=== PATIENT | male | born 1975 | race Caucasian/White ===

== ENCOUNTER 2018-02-02 13:52 | Inpatient (IN) | payer MEDICAID, SELFPAY ==
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
[2018-02-02 14:36] VITALS: BMI 26.2
[2018-02-02 14:37] VITALS: BMI 26.2
[2018-02-02 14:45] VITALS: BP 141/72; PULSE 92; RESP 16; TEMP 36.9; O2SAT 94
[2018-02-02 14:52] LABS: Absolute Neutrophil Count 2.6 X10^3/uL (2.0-7.7); Basophil# 0.03 X10^3/uL; Basophil% 0.6 % (0-1); Eosinophil# 0.07 X10^3/uL; Eosinophils% 1.5 % (0-5); Hematocrit 39.7 % (40-54); Hemoglobin 13.9 g/dl (13.0-16.5); Lymphocyte % 28.1 % (19-41); Mean Corpuscular Hgb 30.4 pg (27.0-32.0); Mean Corpuscular Volume 86.9 fL (80-94); Mean Platelet Vol. 9.2 fl (6.2-12.0); Monocyte# 0.64 X10^3/uL; Monocyte% 13.8 % (0-10); Neutrophil # 2.57 X10^3/uL (2.7-7.7); Neutrophil % 55.6 % (47-70); Platelet Count 129 K/mm3 (150-450); RBC Distribution Width CV 13.9 % (11.6-14.6); RBC Distribution Width SD 43.3 fl (35.1-43.9); Red Blood Count 4.57 M/mm3 (4.6-6.2); White Blood Count 4.6 K/mm3 (4.4-11.0)
[2018-02-02] MEDS: chlordiazePOXIDE 25 MG Capsule PO ×2 (14:52→21:21)
[2018-02-02] MEDS: Ondansetron ODT 4 MG Tablet PO (14:53)
[2018-02-02 14:55] LABS: POSITIVE COUNT NO; POSITIVE DIFFERENTIAL NO; POSITIVE MORPHOLOGY NO
[2018-02-02 14:58] LABS: Prothrombin Time (Protime)PT. 12.9 SECONDS (11.7-14.9)
[2018-02-02 15:14] LABS: AST(SGOT) 159 U/L (15-37); Alanine Aminotransfer ALT/SGPT 126 U/L (16-61); Albumin, Serum 3.8 g/dL (3.2-5.0); Alkaline Phosphatase 122 U/L (45-117); Anion Gap 12 (5-15); BUN 7 mg/dL (7-18); BUN/Creat Ratio 8.1 RATIO (10-20); Calcium,Total 8.3 mg/dL (8.5-10.1); Chloride 102 mmol/L (98-107); Creatinine, Serum 0.87 mg/dL (0.70-1.30); EST Glomerular Filtration Rate 102 mL/min (>60); Est Glom Filt Rate - Afr Amer 124 mL/min (>60); Estimated Creatinine Clearance 117.81 ml/min; Globulin 3.8 g/dL (2.2-4.2); Glucose 104 mg/dL (74-106); Potassium 2.8 mmol/L (3.5-5.1); Protein, Total 7.6 g/dL (6.4-8.2); Sodium Level 140 mmol/L (136-145)
--- NOTE | 2018-02-02 16:22 | CHAPLAIN ---
Type of Pastoral Visit _x__ Initial Visit ___ Follow-up Visit ___ On-call Visit ___ General Patient Visit ___ Spiritual Assessment ___ Family Conference ___ Bereavement ___ Rapid Response ___ Code Blue ___ Other (describe below) Pastoral Care Referral From ___ Patient ___ Family ___ Nurse ___ Physician ___ Bleach Analyst ___ Pantograph Watcher _x__ Other (describe below) Sacrament/Intervention ___ Active listening ___ Anointing ___ Mormon ___ Bereavement ___ Communion ___ Dariana exploration ___ ___ Life review ___ Prayer ___ Reconciliation ___ Sacrament of Sick _x__ Supportive presence ___ Wedding ___ Other (describe below) Pastoral Comments [facility] staff introduced me to patient as he was being admitted; returned to room later to offer support and pt was trying to sleep; he would welcome a visit tomorrow
[2018-02-02 17:25] LABS: Magnesium 1.8 mg/dL (1.6-2.6)
[2018-02-02 18:09] VITALS: BP 147/85; PULSE 95; RESP 16; TEMP 37.1; O2SAT 99
[2018-02-02] MEDS: LORazepam 1 MG Tablet 2 MG PO (18:37)
[2018-02-02] MEDS: traZODone 50 MG Tablet PO (21:21)
[2018-02-02 22:00] VITALS: BP 140/65; PULSE 82; RESP 16; TEMP 37.2; O2SAT 100
[2018-02-03] MEDS: cloNIDine HCl 0.1 MG Tablet PO (02:26)
[2018-02-03] MEDS: chlordiazePOXIDE 25 MG Capsule PO ×4 (02:26→23:02)
[2018-02-03 03:52] VITALS: BP 149/84; PULSE 76; RESP 16; TEMP 36.9; O2SAT 98
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
[2018-02-03 09:27] VITALS: BP 136/88; PULSE 88; RESP 18; TEMP 37.2; O2SAT 100
[2018-02-03] MEDS: Folic Acid 1 MG Tablet PO (09:30)
[2018-02-03] MEDS: Pantoprazole Sodium 40 MG Tablet PO (09:31)
[2018-02-03] MEDS: QUEtiapine 25 MG Tablet 50 MG PO (09:31)
[2018-02-03] MEDS: Thiamine Hydrochloride 100 MG Tablet PO (09:31)
[2018-02-03] MEDS: busPIRone 5 MG Tablet PO (09:31)
[2018-02-03 09:38] VITALS: BP 136/88; PULSE 88; RESP 18; TEMP 37.2
--- NOTE | 2018-02-03 10:10 | CASEMGMT ---
RN CM Note: Per rounds, Dr. Mckeon recommending pt be evaluated by Behavioral Health. YOLIS Whiting updated and referral placed. Shalini DUGANN RN ACM
[2018-02-03 10:17] LABS: Cholesterol 272 mg/dL (200); High Density Lipoprotein 143 mg/dL; Triglycerides 94 mg/dL; Very Low Density Lipoprotein 19 mg/dL (5-40)
[2018-02-03 12:37] LABS: Amphetamine Urine VISTA NEGATIVE (<1000 ng/mL); Barbiturate Urine VISTA POSITIVE (< 200 ng/mL); Benzodiazepine Urine VISTA POSITIVE (< 200 ng/mL); Cocaine Urine VISTA NEGATIVE (< 300 ng/mL); Ecstacy Urine VISTA NEGATIVE (< 500 ng/mL); Methadone Urine VISTA NEGATIVE (< 300 ng/mL); PCP Urine VISTA NEGATIVE (< 25 ng/mL); THC Urine VISTA NEGATIVE (< 50 ng/mL); Vista UDS pH Range 6
--- NOTE | 2018-02-03 13:34 | CASEMGMT ---
Social Work Note SW received referral from RN LUIS DANIEL Newton who states that Dr. Mckeon placed a behavioral health referral in for pt. YOLIS informed pt of this and asked if he would be agreeable for this worker to place call for behavioral health. Pt states I will have to think about it. Pt denied additional needs at this time. SW informed Aman of this. SW received call from Keiry with [facility] stating that pt will be going to a inpatient detoxification facility called [facility] that will provide one on one counseling and IOP services to pt. Behavioral Health Referral is not needed as pt will be receiving services at inpatient detoxification. Plan: [facility] inpatient detoxification at discharge Johanne Curiel BAND LEADER, COTTON HEADER
[2018-02-03 14:00] VITALS: BP 134/88; PULSE 88; RESP 18; TEMP 37.6; O2SAT 96
[2018-02-03 20:53] VITALS: BP 135/91; PULSE 85; RESP 16; TEMP 36.7
[2018-02-03] MEDS: traZODone 50 MG Tablet PO (23:02)
[2018-02-04 02:00] VITALS: RESP 16
[2018-02-04 04:51] VITALS: BP 141/96; PULSE 86; RESP 16; TEMP 36.6
[2018-02-04] MEDS: cloNIDine HCl 0.1 MG Tablet PO ×3 (04:58→17:46)
[2018-02-04 07:27] LABS: Anion Gap 10 (5-15); BUN 15 mg/dL (7-18); BUN/Creat Ratio 15.1 RATIO (10-20); Calcium,Total 9.4 mg/dL (8.5-10.1); Chloride 100 mmol/L (98-107); Creatinine, Serum 0.99 mg/dL (0.70-1.30); EST Glomerular Filtration Rate 87 mL/min (>60); Est Glom Filt Rate - Afr Amer 106 mL/min (>60); Estimated Creatinine Clearance 102.47 ml/min; Glucose 99 mg/dL (74-106); Potassium 3.3 mmol/L (3.5-5.1); Sodium Level 138 mmol/L (136-145)
--- NOTE | 2018-02-04 08:36 | CASEMGMT ---
SW spoke w/physician, pt had agreed to speak w/Behavioral Health when speaking w/physician, and she would still like Behavioral Health to see pt. SW called Rusty in Behavioral Health, he will try to come over to see pt this afternoon. HARVEY Burroughs, OUTREACH CLINICIAN
[2018-02-04] MEDS: Folic Acid 1 MG Tablet PO (09:12)
[2018-02-04] MEDS: Thiamine Hydrochloride 100 MG Tablet PO (09:12)
[2018-02-04] MEDS: busPIRone 5 MG Tablet PO (09:12)
[2018-02-04] MEDS: Pantoprazole Sodium 40 MG Tablet PO (09:12)
[2018-02-04] MEDS: QUEtiapine 25 MG Tablet 50 MG PO (09:20)
[2018-02-04] MEDS: chlordiazePOXIDE 25 MG Capsule PO ×2 (09:20→17:35)
--- NOTE | 2018-02-04 09:34 | PCA ---
rn in with pt
[2018-02-04 10:00] VITALS: BP 132/89; PULSE 87; RESP 18; TEMP 36.4; O2SAT 99
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
[2018-02-04 11:41] LABS: HEPATITIS B SURFACE AG Negative (Negative); Hepatitis A AB, Total Negative (Negative); Hepatitis A IgM Antibody Negative (Negative); Hepatitis B Core AB IgM Negative (Negative); Hepatitis B Core Ab Total Negative (Negative); Hepatitis C Ab <0.1 s/co ratio (0.0-0.9)
[2018-02-04 14:00] VITALS: BP 108/65; PULSE 78; RESP 18; TEMP 36.5
--- NOTE | 2018-02-04 16:35 | BH.NOTE ---
BH: Inpatient Note - Notes Behavioral Health Inpatient Note: 02/04/18 16:35 Referral to [facility] due to anxiety symptoms exacerbating alcohol use. Met with pt in his room. Alert and oriented. Cooperative and pleasant. Denies any suicidal ideations, plan, or intent. Denies any HI or psychosis. Pt reports hx of several treatments for alcohol abuse which include detox, residential, outpatient counseling, and IOP programs. Most recent counseling was through [facility] in [facility]. We discussed at length how anxiety impacts his alcohol use. He admits to self-medication with any significant stressors or worry ultimately leading to blackouts. Despite extensive treatment is able to verbalize any coping skills to manage anxiety which often leads to relapse. Denies ever seeing a psychiatrist to address anxiety and depression. Utilized motivational interviewing techniques to elicit change behaviors. Reports motivation being 8 out of 10 to remain sober, however is pessimistic inpatient or residential treatment will be effective. Does not see benefit in AA. Primary motivation for sobriety is not losing my house and getting a job. Very adamant that he will not be placed anywhere which is longer than 60 days. Per chart pt has aftercare set up with [facility] inpatient facility, however when asked pt did not currently know what his aftercare would be. Encouraged follow-up with psychiatrist at discharge from substance abuse treatment.
[2018-02-04 18:00] VITALS: BP 130/88; PULSE 93; RESP 18; TEMP 36.7
[2018-02-04 22:00] VITALS: BP 122/78; PULSE 75; RESP 18; TEMP 36.8
[2018-02-05] MEDS: chlordiazePOXIDE 25 MG Capsule PO (04:11)
[2018-02-05 08:02] VITALS: BP 128/91; PULSE 68; RESP 18; TEMP 36.7
[2018-02-05] MEDS: Thiamine Hydrochloride 100 MG Tablet PO (08:08)
[2018-02-05] MEDS: Folic Acid 1 MG Tablet PO (08:08)
[2018-02-05 10:24] LABS: Hep B Surface Antibodies Non Reactive (.)
--- NOTE | 2018-02-05 11:41 | CASEMGMT ---
Addendum entered by Kassi Tellez 02/05/18 12:27: Ariela called back, said they do have openings at this time in the intensive outpt program at [facility]. SW explained will have pt call if he is interested in the program. As this SW was waiting to hear if pt would be doing the inpt program set up for him by [facility], SW noticed pt walking out w/family. SW spoke w/pt just before getting on the elevator, pt and family state he is not going to the inpt program set up by [facility]. SW gave pt information on the [facility] program--which shows they do have a location in [place] as well--explained they are taking pts, he would need to call. Pt asked if they take his insurance, SW explained to double check when he calls. SW also gave pt a list of psychiatrists that take his insurance, as well as information on a program in [place] called [facility] for dual diagnosis pts, that also takes his insurance. SW encouraged pt to call. Pt's father took the information provided by YOLIS. YOLIS let Keiry from [facility] know pt is not going to the inpt program, information was given to pt's father regarding psychiatrists and outpt programs. No further needs anticipated at this time. HARVEY Burroughs, LINUX SERVER ENGINEER Original Note: Rusty from Behavioral Health called this SW with information on an intensive outpt program for dual diagnosis patients at [facility], the number is [phone]. YOLIS called, message left for Ariela Dover in intake. SW awaiting a call back. HARVEY Burroughs, LINUX SERVER ENGINEER
--- NOTE | 2018-02-05 11:55 | DCINST_ITS ---
- Discharge Diagnoses Current Active Problems: Current Active and Chronic Problems Alcohol withdrawal (Acute) Anxiety (Chronic) You will use the following diet at home:: No restrictions Your food should be the consistency of: Regular Your liquids should be the consistency of: Regular/Thin Discharge Activity: - - no restrictions May resume sexual activity in: No Restrictions Call your doctor if you observe: Fever of 101 or Higher Instructions: Treating Obsessive-Compulsive Disorder (OCD), Understanding Obsessive-Compulsive Disorder (OCD) Additional Instructions: We do not have a psychiatrist at [facility]. I think the reason you have not been successful in any in-patient or out-patient alcohol rehab facilities is that you have an underlying mental health disorder. I suspect you have OCD or obsessive-compulsive disorder. There is no shame in having a mental health disorder, many people do. The shame is in not being appropriately treated because you are not in control of your life and there is little quality of life when you can not stop drinking, and this is sad for you and your family. In my opinion you need to be treated by a psychiatrist with appropriate medications to get your compulsions under control........you will have to be medicated. Buspar is not going to control compulsive behavior and Seroquel is a anti-psychotic that helps you sleep but does not control cumpulsive behavior. Trazodone is just to help you sleep. Please get yourself hooked up with a psychiatrist to manage the medications and a therapist to do regular counselling with.....sometimes you have to try a few before you find someone you really connect with. Hang in there and keep trying......remember the definition of insanity is doing the same thing over and over and getting the same results.....the psychiatrist and appropriate treatment for obsessive-compulsive disorder is the piece you have been missing. Allergies/Adverse Reactions: Allergies No Known Allergies Allergy (Verified 02/02/18 14:15) Medications to take at Discharge Pantoprazole Sodium [Protonix] 40 mg PO DAILY 02/02/18 Quetiapine Fumarate [Seroquel] 50 mg PO DAILY 02/02/18 traZODone [Desyrel] 50 mg PO QHS 02/02/18 Primary Care Physician: Zachary Mcclendon [Primary Care Provider] - Please follow up with your Primary Care Physician in: within 1 week Proposed Discharge Date: 02/05/18
--- NOTE | 2018-02-05 12:03 | PCM.DC.SUM ---
Discharge Date and Diagnosis Date of Admission: 02/02/18 Date of Discharge: 02/05/18 - Primary Discharge Diagnosis Active and Suspected Problems Alcohol withdrawal (Acute) Fatty infiltration of liver (Suspected) Abnormal LFTs (Acute) OCD (obsessive compulsive disorder) (Suspected) - Secondary Discharge Diagnosis Chronic Problems Alcoholism (Chronic) Anxiety (Chronic) Suspected OCD Hospital Course and Treatment Imaging Results: Laboratory Tests 02/02/18 02/02/18 02/02/18 12:05 14:37 14:37 WBC RBC Hgb Hct MCV MCH MCHC RDW RDW Differential Plt Count MPV Immature Gran % (Auto) Neut % (Auto) Lymph % (Auto) Mcclain % (Auto) Eos % (Auto) Baso % (Auto) Absolute Neuts (auto) Absolute Lymphs (auto) Total Counted PT 12.9 INR 1.0 Sodium Potassium Chloride Carbon Dioxide Anion Gap BUN Creatinine Estim Creat Clear Calc Est GFR (MDRD) Af Amer Est GFR (MDRD) Non-Af BUN/Creatinine Ratio Glucose Calcium Magnesium Total Bilirubin AST ALT Alkaline Phosphatase Total Protein Albumin Globulin Albumin/Globulin Ratio Triglycerides Cholesterol LDL Cholesterol VLDL Cholesterol HDL Cholesterol Urine Opiates Screen NEGATIVE Urine Methadone Screen NEGATIVE Ur Barbiturates Screen POSITIVE H Ur Phencyclidine Scrn NEGATIVE Ur Amphetamines Screen NEGATIVE U Methamphetamin-MDMA NEGATIVE U Benzodiazepines Scrn POSITIVE H Urine Cocaine Screen NEGATIVE U Cannabinoids Screen NEGATIVE Ur Drug Screen Comment Ethyl Alcohol 197.0 Hepatitis A IgM Ab Hepatitis A Ab Total Hep Bs Antigen Hep B Core Total Ab Hep B Core IgM Ab Hepatitis C Ab Confirm Hepatitis C Comment 02/02/18 02/02/18 02/02/18 14:37 14:37 14:37 WBC 4.6 RBC 4.57 L Hgb 13.9 Hct 39.7 L MCV 86.9 MCH 30.4 MCHC 35.0 RDW 13.9 RDW Differential 43.3 Plt Count 129 L MPV 9.2 Immature Gran % (Auto) 0.400 Neut % (Auto) 55.6 Lymph % (Auto) 28.1 Mcclain % (Auto) 13.8 H Eos % (Auto) 1.5 Baso % (Auto) 0.6 Absolute Neuts (auto) 2.6 Absolute Lymphs (auto) 1.30 Total Counted Not Reportable PT INR Sodium 140 Potassium 2.8 L Chloride 102 Carbon Dioxide 26.0 Anion Gap 12 BUN 7 Creatinine 0.87 Estim Creat Clear Calc 117.81 Est GFR (MDRD) Af Amer 124 Est GFR (MDRD) Non-Af 102 BUN/Creatinine Ratio 8.1 L Glucose 104 Calcium 8.3 L Magnesium 1.8 Total Bilirubin 0.80 AST 159 H ALT 126 H Alkaline Phosphatase 122 H Total Protein 7.6 Albumin 3.8 Globulin 3.8 Albumin/Globulin Ratio 1.0 Triglycerides Cholesterol LDL Cholesterol VLDL Cholesterol HDL Cholesterol Urine Opiates Screen Urine Methadone Screen Ur Barbiturates Screen Ur Phencyclidine Scrn Ur Amphetamines Screen U Methamphetamin-MDMA U Benzodiazepines Scrn Urine Cocaine Screen U Cannabinoids Screen Ur Drug Screen Comment Ethyl Alcohol Hepatitis A IgM Ab Hepatitis A Ab Total Hep Bs Antigen Hep B Core Total Ab Hep B Core IgM Ab Hepatitis C Ab Confirm Hepatitis C Comment 02/02/18 02/03/18 02/04/18 14:37 09:25 06:40 WBC RBC Hgb Hct MCV MCH MCHC RDW RDW Differential Plt Count MPV Immature Gran % (Auto) Neut % (Auto) Lymph % (Auto) Mcclain % (Auto) Eos % (Auto) Baso % (Auto) Absolute Neuts (auto) Absolute Lymphs (auto) Total Counted PT INR Sodium 138 Potassium 3.3 L Chloride 100 Carbon Dioxide 28.0 Anion Gap 10 BUN 15 Creatinine 0.99 Estim Creat Clear Calc 102.47 Est GFR (MDRD) Af Amer 106 Est GFR (MDRD) Non-Af 87 BUN/Creatinine Ratio 15.1 Glucose 99 Calcium 9.4 Magnesium Total Bilirubin AST ALT Alkaline Phosphatase Total Protein Albumin Globulin Albumin/Globulin Ratio Triglycerides 94 Cholesterol 272 H LDL Cholesterol 110 VLDL Cholesterol 19 HDL Cholesterol 143 Urine Opiates Screen Urine Methadone Screen Ur Barbiturates Screen Ur Phencyclidine Scrn Ur Amphetamines Screen U Methamphetamin-MDMA U Benzodiazepines Scrn Urine Cocaine Screen U Cannabinoids Screen Ur Drug Screen Comment Ethyl Alcohol Hepatitis A IgM Ab Negative Hepatitis A Ab Total Negative Hep Bs Antigen Negative Hep B Core Total Ab Negative Hep B Core IgM Ab Negative Hepatitis C Ab Confirm <0.1 Hepatitis C Comment Comment none Operations: None Procedures: None Summary of Care Provided: The patient is a 43-year-old male with a past medical history of anxiety (on BuSpar, trazodone and Seroquel) who presented to the [facility] office requesting inpatient admission for medical stabilization for alcohol withdrawal. He recently had a citation for operating a motor vehicle vehicle while intoxicated and attended a program. He was sober during that time and was not given anything for withdrawal. He started drinking again when the program completed. He had auditory hallucinations, visual hallucinations, tremulousness and diaphoresis at admission. He drinks approximately a liter of vodka daily. He stated his last drink was in the a.m. on 10/07/2018 at 9 AM. Vital signs at admission were temperature 98.5, pulse 92, blood pressure 141/72, respiratory rate 16 and he was 94-99% saturated on room air. CBC had a low platelet count at 129,000 but was otherwise unremarkable. Potassium was low at 2.8 and AST was 159 with ALT of 126 and alkaline phosphatase of 122. PT was 12.9. We have no baseline labs on this gentleman. His alcohol level at presentation to the hospital was 197 which is legally intoxicated. The [facility] protocol for alcohol withdrawal was initiated. He was started on a Librium taper. Thiamine and folic acid supplements were ordered. Potassium was replaced. He was seen by Rusty Aguillon from behavioral health while in the hospital and given resources to follow up with for dual diagnosis. 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 He was discharged on 02/05/18 and the plan was for him to attend and inpatient program at [facility]. His father and a cousin showed up to pick him up from the hospital. Discharge Activity: - - no restrictions May resume sexual activity in: No Restrictions Call your doctor if you observe: Fever of 101 or Higher Home Medications: Medications to take at Discharge Pantoprazole Sodium [Protonix] 40 mg PO DAILY 02/02/18 Quetiapine Fumarate [Seroquel] 50 mg PO DAILY 02/02/18 traZODone [Desyrel] 50 mg PO QHS 02/02/18 Primary Care Physician: Zachary Mcclendon [Primary Care Provider] - Please follow up with your Primary Care Physician in: within 1 week Patient Instructions: Treating Obsessive-Compulsive Disorder (OCD), Understanding Obsessive-Compulsive Disorder (OCD) Disposition: Home Minutes spent on discharge:: 30 Patient Condition:: Stable Medical Necessity - Tobacco Use Smoking Status: Never smoker Tobacco Use: Non-smoker Meaningful Use Info Meaningful Use Diagnoses (Choose all that apply): None applicable Code Visit Inpatient E&M: 47651 Disch Hosp
[2018-02-05 12:14] VITALS: BP 149/95; PULSE 91; RESP 18; TEMP 36.5; O2SAT 98
== END 2018-02-05 12:30 | disposition home or self-care (01) | DRG 435 ==
PROVIDERS: Family Provider Internal Medicine; PCP Internal Medicine; Visit Provider Internal Medicine
DX: F10.239 Alcohol dependence with withdrawal, unspecified (principal); F10.229 Alcohol dependence with intoxication, unspecified; F10.251 Alcohol dependence with alcohol-induced psychotic disorder with hallucinations; K70.0 Alcoholic fatty liver; Y90.6 Blood alcohol level of 120-199 mg/100 ml; F32.9 Major depressive disorder, single episode, unspecified; F41.9 Anxiety disorder, unspecified; F42.9 Obsessive-compulsive disorder, unspecified; E87.6 Hypokalemia; K21.9 Gastro-esophageal reflux disease without esophagitis; R94.5 Abnormal results of liver function studies; Z81.1 Family history of alcohol abuse and dependence
CPT/HCPCS: 36415; 80048; 80053; 80061; 80307; 80320; 83735; 85025; 85610; 86704; 86705; 86706; 86708; 86709; 86803; 87340; 99406; G0480

== ENCOUNTER 2018-09-16 17:21 | Inpatient (IN) | payer MEDICAID, SELFPAY ==
[2018-09-16 17:11] VITALS: BP 137/89; PULSE 88; RESP 16; TEMP 36.9; O2SAT 96
[2018-09-16 17:15] VITALS: BMI 25.5
[2018-09-16 17:21] VITALS: BMI 25.5
--- NOTE | 2018-09-16 17:23 | PCM.HP.STD ---
Problem List (1) Alcohol withdrawal Status: Acute (2) Alcoholism Status: Chronic (3) Anxiety Status: Chronic History of Present Illness Date of Admission: 09/16/18 Chief Complaint: alcohol withdrawal The patient is a 43 year old M with pmhx of PSVT s/p ablation, nicotine abuse, anxiety, who presents to the hospital requesting help with alcohol detox. He drinks 3/4 liter of vodka daily and has been drinking since he was 18. Last drink was about 5 hours ago. He last went through detox here in january. He currently complains of tremors, nausea, vomiting, sweating, and anxiety. He did take a valium today for anxiety but states he normally does not use them. He has no other recreational drug use. He smokes about 1/2 ppd and declines patch at this time. He has no hx of withdrawal seizures. [] Past Medical History Past Medical History (Chronic Problems): Chronic Problems Alcoholism (Chronic) Anxiety (Chronic) Allergies No Known Allergies Allergy (Verified 02/02/18 14:15) Home Medications: Ambulatory Orders Medication Instructions Recorded Omeprazole [Prilosec] 20 mg PO DAILY 09/16/18 Ondansetron HCl [Zofran] 4 mg PO Q8H PRN PRN 09/16/18 Psychiatric History: Anxiety Lives: Alone Smoking Status: Current every day smoker Tobacco Use: Cigarettes Alcohol: Heavy Drugs: None - *Family History Maternal History Items: Hypertension, - - chronic back pain Paternal History Items: Hypertension Sibling History Items: - - pulmonary hypertension in brother Review of Systems Constitutional: Reports: - - sweats,. Denies: Chills, Fever, Weight Change HEENT: Denies: Head Aches, Sinus Congestion, Sinus Drainage Cardiovascular: Denies: Chest Pain, Palpitations Respiratory: Denies: Cough, Shortness of breath at rest, Sputum production Gastrointestinal: Reports: Nausea, Vomiting. Denies: Abdominal Pain Genitourinary: Denies: Dysuria Musculoskeletal: Denies: Joint Pain, Joint Tenderness Skin: Denies: Rash, Wounds Neurological: Reports: Tremor. Denies: Focal weakness, Numbness, Tingling Psychiatric: Denies: Anxiety, Depression, Homicidal Ideations, Suicidal Ideations Hematologic/ Lymphatic: Denies: Easy Bruising, Easy Bleeding VTE Information - Inpt Only VTE Present on Admission: No VTE Mechan Device Prophylaxis: None VTE Pharm Prophylaxis ordered?: No Reason prophylaxis not ordered:: Procedure Not Indicated - Physical Exam General: Alert, Oriented x3, Cooperative HEENT: Atraumatic, PERRLA, EOMI, Normocephalic Neck: Supple, No JVD, Negative Carotid Bruits Lungs: Clear to auscultation, Normal air movement Cardiovascular: Regular rate, No murmurs Abdomen: Bowel Sounds Present, Soft, Non Tender Extremities: No edema, Capillary Refill Less than 3 Seconds Skin: No rashes, No breakdown Musculoskeletal: No Tenderness to Palpation of Joints or Extremities Neurological: Cranial nerves II-XII grossly intact Psych/Mental Status: Anxious Vital Signs Temp Pulse Resp BP Pulse Ox 98.4 F 88 16 137/89 H 96 09/16/18 17:11 09/16/18 17:11 09/16/18 17:11 09/16/18 17:11 09/16/18 17:11 Oxygen Delivery Method Room Air Weight: 183 lb Body Mass Index (BMI) 25.5 Assessment/Plan All Active Problems Abnormal LFTs (Acute) Alcohol withdrawal (Acute) 1. Alcoholism with acute withdrawal - current symptoms nausea, vomiting, tremor, sweats. Last use 5 hours ago. Drinks 3/4 liter vodka daily. No hx withdrawal seizures. Last detox January 2018. Initiate withdrawal protocol with librium, ativan prn. Continue home ppi. 2. Nicotine abuse - 1/2 ppd. declines patch 3. Hx PSVT - in remission s/p ablation 4. Anxiety - took a valium at home today, not on maintenance medication. DVT ppx: early ambulation Medical stabilization day 1 of 4. This patient was seen by Usama Zavala PA-C under the supervision of Doctor Cheatham.
[2018-09-16] MEDS: LORazepam 1 MG Tablet PO ×2 (18:13→21:55)
[2018-09-16] MEDS: Ondansetron ODT 4 MG Tablet PO (18:28)
--- NOTE | 2018-09-16 20:08 | PCM.HOSP.N ---
Hospitalist Note Patient was seen and examined today independently of Usama Zavala, he went to the [facility] office today to seek admission for alcohol withdrawal. Patient has been complaining of nausea and vomiting and extreme nervousness and tremor. Patient's last drink was a few hours ago today, he drank 2 drinks in order to calm himself to come to the hospital. Patient has been through alcohol detox 4 times totally, the last time he underwent alcohol detox was in January of this year. Patient's past medical history is remarkable for ablation for PSVT in 1999, patient only takes medications for GERD at the present time. Physical exam: On examination he appeared to have mild anxiety and nervousness. Vital signs as documented. Skin warm and dry and without overt rashes. Neck without JVD. Lungs clear. Heart exam notable for regular rhythm, normal sounds and absence of murmurs, rubs or gallops. Abdomen unremarkable and without evidence of organomegaly, masses, or abdominal aortic enlargement. Extremities nonedematous. Neuro: Cranial nerves II through XII are grossly intact, no focal motor deficits were noted, sensation is intact to pinprick and light touch. Psych: Patient was alert and oriented x3, he appeared to have mild tremor and be mildly anxious, he did not appear to be depressed. Patient will be admitted into the medical stabilization program at [facility], order sets were entered using the alcohol withdrawal order set and general order set for the medical stabilization program. I do not feel the patient needs any labs at the present time, he feels that he is able to intake fluids and we will not need an IV. Impression: #1 acute alcohol withdrawal #2 chronic alcoholism I have reviewed Usama Zavala's history and physical and medical plan of care and endorse both
--- NOTE | 2018-09-16 20:26 | CCHN_ITS ---
Addendum entered and electronically signed by Alejandro Cheatham DO 09/16/18 20:14: Code Visit Inpatient E&M: 67290 Init Hosp L3 Original Note: Hospitalist Note Patient was seen and examined today independently of Usama Zavala, he went to the [facility] office today to seek admission for alcohol withdrawal. Patient has been complaining of nausea and vomiting and extreme nervousness and tremor. Patient's last drink was a few hours ago today, he drank 2 drinks in order to calm himself to come to the hospital. Patient has been through alcohol detox 4 times totally, the last time he underwent alcohol detox was in January of this year. Patient's past medical history is remarkable for ablation for PSVT in 1999, patient only takes medications for GERD at the present time. Physical exam: On examination he appeared to have mild anxiety and nervousness. Vital signs as documented. Skin warm and dry and without overt rashes. Neck without JVD. Lungs clear. Heart exam notable for regular rhythm, normal sounds and absence of murmurs, rubs or gallops. Abdomen unremarkable and without evidence of organomegaly, masses, or abdominal aortic enlargement. Extremities nonedematous. Neuro: Cranial nerves II through XII are grossly intact, no focal motor deficits were noted, sensation is intact to pinprick and light touch. Psych: Patient was alert and oriented x3, he appeared to have mild tremor and be mildly anxious, he did not appear to be depressed. Patient will be admitted into the medical stabilization program at [facility], order sets were entered using the alcohol withdrawal order set and general order set for the medical stabilization program. I do not feel the patient needs any labs at the present time, he feels that he is able to intake fluids and we will not need an IV. Impression: #1 acute alcohol withdrawal #2 chronic alcoholism I have reviewed Usama Zavala's history and physical and medical plan of care and endorse both
[2018-09-16 20:35] VITALS: BP 134/83; PULSE 80; RESP 16; TEMP 37.1; O2SAT 95
[2018-09-17] VITALS (9 sets, daily range): BP systolic 141–151; BP diastolic 95–111; PULSE 88–109; RESP 16–18; TEMP 36.1–37.5; O2SAT 96–97
[2018-09-17] MEDS: LORazepam 1 MG Tablet 2 MG PO ×2 (00:31→04:25)
[2018-09-17] MEDS: Ondansetron ODT 4 MG Tablet PO ×2 (00:31→06:37)
[2018-09-17] MEDS: Famotidine 20 MG Tablet PO ×3 (01:21→23:02)
[2018-09-17] MEDS: LORazepam 1 MG Tablet PO ×5 (02:42→19:31)
--- NOTE | 2018-09-17 08:23 | PCM.PN.HOSP ---
Subjective: Patient is a 43-year-old gentleman with history of chronic alcohol abuse who presented with early alcohol withdrawal. Patient has been admitted to regular nursing floor for medical stabilization. Patient seen complains of severe tremors involving upper extremities. Also complains of cold and episodes of confusion Objective: GENERAL: Tremulous at rest HEENT: Atraumatic; moist oral mucosa EYES; Anicteric, Normal Conjunctiva NECK; supple, normal thyroid, no distended JVD. RESPIRATORY: Diminished to auscultation bilaterally, CARDIOVASCULAR: Regular S1 S2, no audible murmurs GI: soft, non-tender, normoactive bowel sounds, : No Renal angle tenderness; EXTREMITIES: No edema, no clubbing, no cyanosis. MUSCULOSKELETAL: No Joint Tenderness; no muscle waisting NEURO: Awake; no lateralizing signs. SKIN: No Rash PSYCH; Normal affect Vitals/I&O's: Vital Signs Temp Pulse Resp BP Pulse Ox 99.5 F H 92 16 141/110 H 97 09/17/18 04:19 09/17/18 04:19 09/17/18 04:19 09/17/18 04:19 09/17/18 04:19 Oxygen Delivery Method Room Air Weight: 83.007 kg Body Mass Index (BMI) 25.5 Intake and Output for Last 24 Hours 09/15/18 09/16/18 09/17/18 23:59 23:59 23:59 Intake Total 800 / 800 Output Total 200 / 200 Balance 600 / 600 Current Medications Acetaminophen (Tylenol) 500 mg PO Q4H PRN PRN PRN Reason: Temp > 100.4 F Dicyclomine HCl (Bentyl) 20 mg PO Q6H PRN PRN PRN Reason: abdominal discomfort Famotidine (Pepcid) 20 mg PO BID [facility] Last Admin: 09/17/18 01:21 Dose: 20 mg Folic Acid (Folic Acid) 1 mg PO DAILYCM [facility] Ibuprofen (Motrin) 600 mg PO Q8H PRN PRN PRN Reason: Mild-Moderate Pain (1-5/10) Lorazepam (Ativan) 2 mg PO Q2H PRN PRN; Protocol PRN Reason: CIWA score > 8 but <15 Last Admin: 09/17/18 04:25 Dose: 2 mg Lorazepam (Ativan) 2 mg IV Q2H PRN PRN; Protocol PRN Reason: CIWA score > 8 but <15 Lorazepam (Ativan) 2 mg PO UD PRN; Protocol PRN Reason: CIWA score >/=15. Lorazepam (Ativan) 2 mg IV UD PRN; Protocol PRN Reason: CIWA score >/=15. Lorazepam (Ativan) 1 mg PO Q4H JOHN; Taper Stop: 09/19/18 21:59 Last Admin: 09/17/18 06:37 Dose: 1 mg Methocarbamol (Methocarbamol) 750 mg PO Q6H PRN PRN PRN Reason: Muscle Aches Multivitamins (Multivitamin) [facility] Nutritional Formula (Lactose Free) (Ensure Enlive) 120 ml PO 4X/DAY [facility] Last Admin: 09/16/18 21:55 Dose: 120 ml Ondansetron HCl (Zofran Odt) 4 mg PO Q6H PRN PRN PRN Reason: NAUSEA Last Admin: 09/17/18 06:37 Dose: 4 mg Pantoprazole Sodium (Protonix) 20 mg PO DAILY [facility] Sodium Chloride () 5 - 30 ml IV UD PRN PRN Reason: SALINE FLUSH Thiamine HCl (Vitamin B1) 100 mg PO DAILYCM [facility] Medical Necessity - Tobacco Use Smoking Status: Current every day smoker Tobacco Use: Cigarettes Assessment/Plan All Active Problems Abnormal LFTs (Acute) Alcohol withdrawal (Acute) Patient is a 43-year-old gentleman with history of chronic alcohol abuse who presented with early alcohol withdrawal. Patient has been admitted to regular nursing floor for medical stabilization. 1. Acute alcohol withdrawal. Patient has been admitted to regular nursing floor for medical stabilization using Librium with Ativan as needed 2. Chronic alcohol abuse patient was counseled on cessation 3. History of PSVT with previous ablation 4. Tobacco dependence counseled on cessation, offered nicotine patch for tobacco cravings 5. Elevated blood pressure patient placed on amlodipine 5 mg daily 6. DVT prophylaxis did encourage early ambulation Code Visit Inpatient E&M: 16120 [facility] Hosp L3
--- NOTE | 2018-09-17 08:27 | PN_ITS ---
Subjective: Patient is a 43-year-old gentleman with history of chronic alcohol abuse who presented with early alcohol withdrawal. Patient has been admitted to regular nursing floor for medical stabilization. Patient seen complains of severe tremors involving upper extremities. Also complains of cold and episodes of confusion Objective: GENERAL: Tremulous at rest HEENT: Atraumatic; moist oral mucosa EYES; Anicteric, Normal Conjunctiva NECK; supple, normal thyroid, no distended JVD. RESPIRATORY: Diminished to auscultation bilaterally, CARDIOVASCULAR: Regular S1 S2, no audible murmurs GI: soft, non-tender, normoactive bowel sounds, : No Renal angle tenderness; EXTREMITIES: No edema, no clubbing, no cyanosis. MUSCULOSKELETAL: No Joint Tenderness; no muscle waisting NEURO: Awake; no lateralizing signs. SKIN: No Rash PSYCH; Normal affect Vitals/I&O's: Vital Signs Temp Pulse Resp BP Pulse Ox 99.5 F H 92 16 141/110 H 97 09/17/18 04:19 09/17/18 04:19 09/17/18 04:19 09/17/18 04:19 09/17/18 04:19 Oxygen Delivery Method Room Air Weight: 83.007 kg Body Mass Index (BMI) 25.5 Intake and Output for Last 24 Hours 09/15/18 09/16/18 09/17/18 23:59 23:59 23:59 Intake Total 800 / 800 Output Total 200 / 200 Balance 600 / 600 Current Medications Acetaminophen (Tylenol) 500 mg PO Q4H PRN PRN PRN Reason: Temp > 100.4 F Dicyclomine HCl (Bentyl) 20 mg PO Q6H PRN PRN PRN Reason: abdominal discomfort Famotidine (Pepcid) 20 mg PO BID [facility] Last Admin: 09/17/18 01:21 Dose: 20 mg Folic Acid (Folic Acid) 1 mg PO DAILYCM [facility] Ibuprofen (Motrin) 600 mg PO Q8H PRN PRN PRN Reason: Mild-Moderate Pain (1-5/10) Lorazepam (Ativan) 2 mg PO Q2H PRN PRN; Protocol PRN Reason: CIWA score > 8 but <15 Last Admin: 09/17/18 04:25 Dose: 2 mg Lorazepam (Ativan) 2 mg IV Q2H PRN PRN; Protocol PRN Reason: CIWA score > 8 but <15 Lorazepam (Ativan) 2 mg PO UD PRN; Protocol PRN Reason: CIWA score >/=15. Lorazepam (Ativan) 2 mg IV UD PRN; Protocol PRN Reason: CIWA score >/=15. Lorazepam (Ativan) 1 mg PO Q4H JOHN; Taper Stop: 09/19/18 21:59 Last Admin: 09/17/18 06:37 Dose: 1 mg Methocarbamol (Methocarbamol) 750 mg PO Q6H PRN PRN PRN Reason: Muscle Aches [facility]ivit[facility] ([facility]itamin) [facility] Nutritional Formula (Lactose Free) (Ensure Enlive) 120 ml PO 4X/DAY [facility] Last Admin: 09/16/18 21:55 Dose: 120 ml Ondansetron HCl (Zofran Odt) 4 mg PO Q6H PRN PRN PRN Reason: NAUSEA Last Admin: 09/17/18 06:37 Dose: 4 mg Pantoprazole Sodium (Protonix) 20 mg PO DAILY [facility] Sodium Chloride () 5 - 30 ml IV UD PRN PRN Reason: SALINE FLUSH Thiamine HCl (Vitamin B1) 100 mg PO DAILYCM [facility] Medical Necessity - Tobacco Use Smoking Status: Current every day smoker Tobacco Use: Cigarettes Assessment/Plan All Active Problems Abnormal LFTs (Acute) Alcohol withdrawal (Acute) Patient is a 43-year-old gentleman with history of chronic alcohol abuse who presented with early alcohol withdrawal. Patient has been admitted to regular nursing floor for medical stabilization. 1. Acute alcohol withdrawal. Patient has been admitted to regular nursing floor for medical stabilization using Librium with Ativan as needed 2. Chronic alcohol abuse patient was counseled on cessation 3. History of PSVT with previous ablation 4. Tobacco dependence counseled on cessation, offered nicotine patch for tob acco cravings 5. Elevated blood pressure patient placed on amlodipine 5 mg daily 6. DVT prophylaxis did encourage early ambulation Code Visit Inpatient E&M: 93130 [facility] Hosp L3
[2018-09-17] MEDS: Multivitamins,Therapeutic Tablet 1 TABLET PO (08:47)
[2018-09-17] MEDS: Folic Acid 1 MG Tablet PO (08:47)
[2018-09-17] MEDS: Thiamine Hydrochloride 100 MG Tablet PO (08:47)
[2018-09-17] MEDS: Pantoprazole Sodium 20 MG Tablet PO (08:47)
[2018-09-17] MEDS: amLODIPine 5 MG Tablet PO (09:01)
[2018-09-17 09:17] LABS: Absolute Lymphocyte Count 0.87 X10^3/ul (0.83-4.51); Absolute Neutrophil Count 3.6 X10^3/uL (2.0-7.7); Basophil# 0.02 X10^3/uL; Basophil% 0.4 % (0-1); Eosinophil# 0.03 X10^3/uL; Eosinophils% 0.6 % (0-5); Hemoglobin 14.6 g/dl (13.0-16.5); Lymphocyte # 0.87 X10^3/ul (4.0); Lymphocyte % 16.6 % (19-41); Mean Corpuscular Hgb 31.5 pg (27.0-32.0); Mean Corpuscular Volume 92.7 fL (80-94); Mean Platelet Vol. 10.1 fl (6.2-12.0); Monocyte# 0.69 X10^3/uL; Monocyte% 13.2 % (0-10); Neutrophil # 3.62 X10^3/uL (2.7-7.7); Neutrophil % 69.2 % (47-70); Platelet Count 164 K/mm3 (150-450); RBC Distribution Width CV 13.8 % (11.6-14.6); RBC Distribution Width SD 46.5 fl (35.1-43.9); Red Blood Count 4.64 M/mm3 (4.6-6.2); White Blood Count 5.2 K/mm3 (4.4-11.0)
[2018-09-17 09:18] LABS: POSITIVE COUNT NO; POSITIVE DIFFERENTIAL NO; POSITIVE MORPHOLOGY NO
[2018-09-17 09:25] LABS: Anion Gap 7 (5-15); BUN 10 mg/dL (7-18); BUN/Creat Ratio 11.7 RATIO (10-20); Calcium,Total 9.2 mg/dL (8.5-10.1); Chloride 100 mmol/L (98-107); Creatinine, Serum 0.86 mg/dL (0.70-1.30); EST Glomerular Filtration Rate 103 mL/min (>60); Est Glom Filt Rate - Afr Amer 125 mL/min (>60); Estimated Creatinine Clearance 117.96 ml/min; Glucose 104 mg/dL (74-106); Magnesium 1.8 mg/dL (1.6-2.6); Potassium 3.9 mmol/L (3.5-5.1); Sodium Level 135 mmol/L (136-145)
[2018-09-17] MEDS: hydrALAZINE 20 MG/ML Vial 10 MG IV (20:37)
[2018-09-18] VITALS (16 sets, daily range): BP systolic 110–168; BP diastolic 77–111; PULSE 98–156; RESP 14–29; TEMP 36.4–37.1; O2SAT 96–98
[2018-09-18] MEDS: LORazepam 1 MG Tablet PO ×3 (01:46→13:55)
--- NOTE | 2018-09-18 07:21 | PN_ITS ---
Subjective: Patient seen still remains significantly tremulous at rest. Blood pressure was markedly elevated the day prior started patient is scheduled amlodipine in addition to hydralazine as needed. Patient this morning complains of feeling restless Objective: GENERAL: Tremulous at rest HEENT: Atraumatic; moist oral mucosa EYES; Anicteric, Normal Conjunctiva NECK; supple, normal thyroid, no distended JVD. RESPIRATORY: Diminished to auscultation bilaterally, CARDIOVASCULAR: Regular S1 S2, no audible murmurs GI: soft, non-tender, normoactive bowel sounds, : No Renal angle tenderness; EXTREMITIES: No edema, no clubbing, no cyanosis. MUSCULOSKELETAL: No Joint Tenderness; no muscle waisting NEURO: Awake; no lateralizing signs. SKIN: No Rash PSYCH; Normal affect Vitals/I&O's: Vital Signs Temp Pulse Resp BP Pulse Ox 98.2 F 102 H 16 150/104 H 97 09/18/18 01:51 09/18/18 06:00 09/18/18 06:00 09/18/18 01:51 09/18/18 01:51 Oxygen Delivery Method Room Air Weight: 83.007 kg Body Mass Index (BMI) 25.5 Intake and Output for Last 24 Hours 09/16/18 09/17/18 09/18/18 23:59 23:59 23:59 Intake Total 1200 / 1200 680 / 680 Output Total 200 / 200 Balance 1000 / 1000 680 / 680 Laboratory Results 09/17/18 08:40: WBC 5.2, RBC 4.64, Hgb 14.6, Hct 43.0, MCV 92.7, MCH 31.5, MCHC 34.0, RDW 13.8, RDW Differential 46.5 H, Plt Count 164, MPV 10.1, Immature Gran % (Auto) 0.000, Neut % (Auto) 69.2, Lymph % (Auto) 16.6 L, [place] % (Auto) 13.2 H, Eos % (Auto) 0.6, Baso % (Auto) 0.4, Absolute Neuts (auto) 3.6, Absolute Lymphs (auto) 0.87, Total Counted Not Reportable 09/17/18 08:40: Sodium 135 L, Potassium 3.9, Chloride 100, Carbon Dioxide 28.0, Anion Gap 7, BUN 10, Creatinine 0.86, Estim Creat Clear Calc 117.96, Est GFR (MDRD) Af Amer 125, Est GFR (MDRD) Non-Af 103, BUN/Creatinine Ratio 11.7, Glucose 104, Calcium 9.2, Magnesium 1.8 Current Medications Acetaminophen (Tylenol) 500 mg PO Q4H PRN PRN PRN Reason: Temp > 100.4 F Amlodipine Besylate (Norvasc) 5 mg PO DAILY [facility] Last Admin: 09/17/18 09:01 Dose: 5 mg Dicyclomine HCl (Bentyl) 20 mg PO Q6H PRN PRN PRN Reason: abdominal discomfort Famotidine (Pepcid) 20 mg PO BID [facility] Last Admin: 09/17/18 23:02 Dose: 20 mg [facility] Last Admin: 09/17/18 08:47 Dose: 1 mg Hydralazine HCl (Apresoline Iv) 10 mg IV Q4H PRN PRN PRN Reason: hypertension Last Admin: 09/17/18 20:37 Dose: 10 mg Ibuprofen (Motrin) 600 mg PO Q8H PRN PRN PRN Reason: Mild-Moderate Pain (1-5/10) Lorazepam (Ativan) 2 mg PO Q2H PRN PRN; Protocol PRN Reason: CIWA score > 8 but <15 Last Admin: 09/17/18 04:25 Dose: 2 mg Lorazepam (Ativan) 2 mg IV Q2H PRN PRN; Protocol PRN Reason: CIWA score > 8 but <15 Lorazepam (Ativan) 2 mg PO UD PRN; Protocol PRN Reason: CIWA score >/=15. Lorazepam (Ativan) 2 mg IV UD PRN; Protocol PRN Reason: CIWA score >/=15. Lorazepam (Ativan) 1 mg PO Q6H [facility]; Taper Stop: 09/19/18 21:59 Last Admin: 09/18/18 01:46 Dose: 1 mg Methocarbamol (Methocarbamol) 750 mg PO Q6H PRN PRN PRN Reason: Muscle Aches Multivitamins ([facility]ivitamin) [facility] Last Admin: 09/17/18 08:47 Dose: 1 tablet Nutritional Formula (Lactose Free) (Ensure Enlive) 120 ml PO 4X/DAY [facility] Last Admin: 09/17/18 23:01 Dose: 120 ml Ondansetron HCl (Zofran Odt) 4 mg PO Q6H PRN PRN PRN Reason: NAUSEA Last Admin: 09/17/18 06:37 Dose: 4 mg Pantoprazole Sodium (Protonix) 20 mg PO DAILY [facility] Last Admin: 09/17/18 08:47 Dose: 20 mg Sodium Chloride () 5 - 30 ml IV UD PRN PRN Reason: SALINE FLUSH Thiamine HCl (Vitamin B1) [facility] Last Admin: 09/17/18 08:47 Dose: 100 mg Medical Necessity - Tobacco Use Smoking Status: Never smoker Tobacco Use: Chew Assessment/Plan All Active Problems Abnormal LFTs (Acute) Alcohol withdrawal (Acute) Patient is a 43-year-old gentleman with history of chronic alcohol abuse who presented with early alcohol withdrawal. Patient has been admitted to regular nursing floor for medical stabilization. 1. Acute alcohol withdrawal. Patient has been admitted to regular nursing floor for medical stabilization using Librium with Ativan as needed 2. Chronic alcohol abuse patient was counseled on cessation 3. History of PSVT with previous ablation 4. Tobacco dependence counseled on cessation, offered nicotine patch for tobacco cravings 5. Essential hypertension: Started patient on amlodipine in addition to hydralazine as needed 6. DVT prophylaxis did encourage early ambulation Code Visit Inpatient E&M: 80375 Subs Hosp L2
[2018-09-18] MEDS: Famotidine 20 MG Tablet PO (07:54)
[2018-09-18] MEDS: Pantoprazole Sodium 20 MG Tablet PO (07:54)
[2018-09-18] MEDS: amLODIPine 5 MG Tablet PO ×2 (07:54→09:52)
[2018-09-18] MEDS: Multivitamins,Therapeutic Tablet 1 TABLET PO (07:55)
[2018-09-18] MEDS: Thiamine Hydrochloride 100 MG Tablet PO (07:55)
[2018-09-18] MEDS: Folic Acid 1 MG Tablet PO (07:55)
[2018-09-18] MEDS: Metoprolol Tartrate 25 MG Tablet PO (09:52)
[2018-09-18] MEDS: LORazepam 1 MG Tablet 2 MG PO ×2 (15:10→22:14)
[2018-09-18] MEDS: LORazepam 2 MG/ML Syringe IV (18:40)
--- NOTE | 2018-09-18 19:40 | NURSING ---
pt up in nursing station, wrpped in blanket like a toga, pt carrying bag from home which he states has #20 ativan pills in that bag-security is now speaking with pt -dr shahid has also been paged pt slurring words, argumentative that he needs a phone body shop manager and wants to leave, and at the same time unable to state where he is, date or president, has been observed talking on tv wand, carrying on a converstation
--- NOTE | 2018-09-18 20:32 | PCM.HOSP.N ---
Hospitalist Note Patient extremely tremulous, agitated, prior to current evaluation was noted to be walking the halls, walking into other patient rooms and was noted to scare another patient secondary to walking up to her with a trash can and telling her it needed to be emptied, walking around in blankets in toga appearance. He noted wanting to leave and was packing his bag. He accused staff of taking his wallet and causing his phone to not work. He also then admitted to have ativan pills on his person. He per RN prior to physician evaluation was not answering questions appropriate, clearly confused. Physician evaluation with orientation to place, month, self, year but during conversation intermittently giving very inappropriate information and cleared not oriented. Attempted to discuss situation with patient, concerns that he is unsafe to leave secondary to his severe EtOH withdrawal presentation. He was eventually willing to have physician look at his rx which was only for 15 tablets 0.5 mg ativan and there were 13 tablets present. Patient with staff and police walked to ICU, noted to patient he would be able to talk to his father once we obtained a phone. Patient father called per patient request and he did talk with patient as well as staff requesting that staff keep patient and agrees completely to need for sedation in order to be able to safely treat the patient for acute EtOH Withdrawal. Dr. Bryan notified of patient transition to ICU, will administer geodon x 1 IM now until able to obtain IV precedex given his agitation. Supervising nurse present and assisted with transition. Discussed case also with Dr. Floyd who has been following the patient and he notes recent discussions w/ medical executive supportive of chemical sedation for current situation given patient clinically unsafe, at risk for accidental harm to himself or others if he were allowed to leave. Also, cousin was contacted and all family members have noted this is a common severe presentation for him and requested he stay for treatment even if chemical sedation required to achieve this pathway.
[2018-09-18] MEDS: 0.9% NaCl Peripheral Flush Adult/Peds IV ×2 (21:07→23:15)
--- NOTE | 2018-09-18 21:08 | NURSING ---
Upon coming on to shift, patient was noted to be walking the hallways dragging blankets with his person. He was found in other patient's rooms and the nursing station. Patient easily directed, not physical or yelling. Speech rambling/excessive. Disoriented, believes he is in [place] and has been for 2 weeks, states the date is September 23. Dr. Castellano paged, order for meds entered, however, patient became increasingly paranoid with nursing staff, stating we were trying to kill him and that we had stolen his phone and wallet. At this point Dr. Castellano was paged to floor and another nurse called for security. Officer Vic arrived and patient (in the hallway) saw him come to floor and ran to him, explaining that nurses were poisoning him. We redirected to the room. Patient very impulsive/distractible. Wandering in room, fidgeting and not sitting still. Sorting through personal bag multiple times, continually accusing this RN of stealing phone and wallet even though they were observed in his bag. He then began dressing self in all of his clothing. Unable to get a sweatshirt on d/t tremors, he allowed this RN to assist. Dr. Castellano arrived at this point with nursing table games floor supervisor. Patient in room, still very restless/agitated. He then admitted to having pills in his personal bag, but would not allow staff to see at first, until he agreed for only Dr. Castellano to see, pills were noted to be Ativan 0.5mg with only 2 pills missing, unknown if patient took these or not prior to admission or during. Officer Vic agreed to call next of kin on his phone d/t long distance number. She spoke to patient then spoke to officer Vic and relayed that she did not want the patient to leave and she would not give him a ride as he requested. After much discussion with Dr. Castellano, patient agreed to walk downstairs. With [address] Castellano, nursing table games floor supervisor and myself we walked down to ICU. Once to ICU able to direct to his new room. We called patient's father with a number the patient gave to us, patient spoke to him on the phone and then handed the phone to me. I introduced myself and he identified himself as John the pt's father. I explained to him the events of the past 2 hours. He stated he did not want the pt to leave and I explained that we were now in ICU and the patient may be sedated. John stated he understood and he did not want the patient to leave (repeating himself multiple times). I hung up the phone. At this point the patient became agitated with this RN stating I had stolen his phone and lied to his dad @ this point. I left the room, leaving Officer Vic and another security architect in the room. I informed Dr. Castellano, nursing table games floor supervisor and ICU staff of my conversation with the pt's father. Handoff was placed in the computer for CAR INSPECTOR who was not on floor. Short Verbal handoff relayed to other ICU staff.
--- NOTE | 2018-09-18 22:40 | NURSING ---
Pt with sitter at bedside, ubruptly stands up and rips wires off, iv out and begins running down the tamez, this RN and other staff follow patient, blood coming from iv dripping all over the floor. Pt is yelling call [employer] police, call [employer] police, they are trying to kill me, pt pushes button and runs out of icu around [address], dripping blood everywhere, pt with word salad, unoriented. Code Olga called, [employer] called. Staff able to get paitent stopped in hallway, held until IM nelly given, [employer] on floor along with security, Dr Castellano and nursing pattern grader supervisor, pt wheeled back to room 5, Dr Castellano spoke with patients father, agrees to intubation for safety.
[2018-09-18] MEDS: Ziprasidone IM 20 MG/ML VIAL IM (22:55)
--- NOTE | 2018-09-18 23:11 | RAD_ITS ---
STUDY: X-RAY CHEST REASON FOR EXAM: Male, 43 years old. Endotracheal and orogastric tube placement TECHNIQUE: Single frontal view of the chest. COMPARISON: None. FINDINGS: There is a nasogastric tube with the tip extending inferiorly outside the field of view below the left hemidiaphragm. There is endotracheal tube with the tip 8.3 cm superior to the kaitlin. Consider 3 cm of advancement. The lungs are clear and expanded. There is no demonstrated pleural abnormality. Normal size heart. Normal mediastinum and baljeet. Normal visualized pulmonary arteries. Normal visualized aortic arch and descending thoracic aorta. Normal visualized thoracic spine. Normal visualized ribs, clavicles, and shoulders. There is no demonstrated abnormality of the visualized soft tissue structures of the upper abdomen. RAD/Chest 1 View (Portable) IMPRESSION: There is a nasogastric tube with the tip extending inferiorly outside the field of view below the left hemidiaphragm. There is an endotracheal tube with the tip 8.3 cm superior to the kaitlin. Consider 3 cm of advancement to place the tip within the region of the mid intrathoracic trachea. Electronically Signed: Salvador Arredondo, at 0:05 EST Tel , Service support ,
[2018-09-18] MEDS: 0.9% Normal Saline 1,000 ML 999 ML IV (23:15)
[2018-09-18] MEDS: Midazolam 2 MG/2 ML Syringe 4 MG IV (23:15)
[2018-09-18] MEDS: Etomidate 20 MG/10 ML Vial IV (23:16)
[2018-09-18] MEDS: Succinylcholine Chloride 200 MG/10 ML Vial 100 MG IV (23:18)
[2018-09-18] MEDS: Propofol 10MG/Ml 1,000 MG/100 ML Bottle 4.89 MG CONT INF (23:33)
[2018-09-19] VITALS (48 sets, daily range): BP systolic 61–142; BP diastolic 31–95; PULSE 58–120; RESP 14–30; TEMP 35.8–37.3; O2SAT 30–100
[2018-09-19] MEDS: 0.9% Normal Saline 1,000 ML 999 ML IV (01:04)
[2018-09-19] MEDS: Enoxaparin 40 MG/0.4 ML Syringe SC (01:07)
[2018-09-19] MEDS: fentaNYL drip 100 ML 5 MCG IV ×2 (01:12→13:02)
[2018-09-19] MEDS: 0.9% Normal Saline 1,000 ML 150 ML IV (02:21)
--- NOTE | 2018-09-19 02:55 | NURSING ---
Attempting to reposition patient, pt becomes combative, attempting to pull ett tube, pt held down with 6 staff, propofol increased to 20mcg/kg/min
[2018-09-19 05:31] LABS: Absolute Lymphocyte Count 1.49 X10^3/ul (0.83-4.51); Absolute Neutrophil Count 3.6 X10^3/uL (2.0-7.7); Basophil# 0.02 X10^3/uL; Basophil% 0.3 % (0-1); Eosinophil# 0.04 X10^3/uL; Eosinophils% 0.7 % (0-5); Hematocrit 38.5 % (40-54); Hemoglobin 12.9 g/dl (13.0-16.5); Lymphocyte # 1.49 X10^3/ul (4.0); Lymphocyte % 24.8 % (19-41); Mean Corp Hgb Conc 33.5 g/gl (32-36); Mean Corpuscular Hgb 31.4 pg (27.0-32.0); Mean Corpuscular Volume 93.7 fL (80-94); Mean Platelet Vol. 10.6 fl (6.2-12.0); Monocyte# 0.86 X10^3/uL; Monocyte% 14.3 % (0-10); Neutrophil # 3.56 X10^3/uL (2.7-7.7); Neutrophil % 59.4 % (47-70); Platelet Count 164 K/mm3 (150-450); RBC Distribution Width CV 13.7 % (11.6-14.6); RBC Distribution Width SD 46.8 fl (35.1-43.9); Red Blood Count 4.11 M/mm3 (4.6-6.2)
[2018-09-19 05:32] LABS: POSITIVE COUNT NO; POSITIVE DIFFERENTIAL NO; POSITIVE MORPHOLOGY NO
[2018-09-19 05:53] LABS: CPK Total, Creatine Kinase 170 U/L (39-308); Triglycerides 78 mg/dL
[2018-09-19] MEDS: Propofol 10MG/Ml 1,000 MG/100 ML Bottle 4.89 MG CONT INF ×3 (06:07→20:52)
[2018-09-19 06:09] LABS: ALB/GLOB Ratio 0.8 RATIO (0.9-2.4); AST(SGOT) 115 U/L (15-37); Alanine Aminotransfer ALT/SGPT 95 U/L (16-61); Alkaline Phosphatase 118 U/L (45-117); Anion Gap 12 (5-15); BUN 26 mg/dL (7-18); BUN/Creat Ratio 23.6 RATIO (10-20); Calcium,Total 8.4 mg/dL (8.5-10.1); Chloride 105 mmol/L (98-107); EST Glomerular Filtration Rate 77 mL/min (>60); Est Glom Filt Rate - Afr Amer 94 mL/min (>60); Estimated Creatinine Clearance 92.22 ml/min; Globulin 3.7 g/dL (2.2-4.2); Glucose 105 mg/dL (74-106); Phosphorus 4.3 mg/dL (2.5-4.9); Potassium 3.8 mmol/L (3.5-5.1); Protein, Total 6.7 g/dL (6.4-8.2); Sodium Level 140 mmol/L (136-145)
--- NOTE | 2018-09-19 06:12 | PCM.CON.CC ---
Reason for Consult Date of Consultation: 09/19/18 Reason for Consultation: Acute respiratory failure History of Present Illness: The patient is a 43-year-old male, with a history as outlined below, who presented on September 16 for alcohol detox. The patient has a history of drinking just under 1 L of vodka daily and has been doing so since the age of 18. He also is an active tobacco user, smoking 1/2 pack of cigarettes daily. The patient was initially admitted to the regular nursing floor and medically managed for alcohol withdrawal symptoms. On the evening of September 18, the patient was noted to be extremely agitated and tremulous. Given the patient's increasing CIWA scores he was transitioned to ICU level of care. During the document advisor hours of September 19, despite having been placed on a Precedex infusion, a code efrain was called as the patient became agitated and confrontational with staff. The patient was felt to be lacking capacity for medical decision making by the overnight care provider. The patient's clinical presentation was discussed with his family and the decision was made to intubate the patient, due to ever increasing need for sedation along with threat/harmful behavior to self and staff members. The patient is currently intubated and mechanically ventilated. He is being maintained on a sedation at regimen which includes propofol, fentanyl and Precedex. He is currently afebrile and hemodynamically stable, with minimal ventilatory requirements. Past Medical History Past Medical History (Chronic Problems): Chronic Problems Alcoholism (Chronic) Anxiety (Chronic) Allergies No Known Allergies Allergy (Verified 02/02/18 14:15) Home Medications: Ambulatory Orders Medication Instructions Recorded Omeprazole [Prilosec] 20 mg PO DAILY 09/16/18 Ondansetron HCl [Zofran] 4 mg PO Q8H PRN PRN 09/16/18 Psychiatric History: Anxiety Lives: Alone Smoking Status: Never smoker Tobacco Use: Chew Alcohol: Heavy Drugs: None - *Family History Maternal History Items: Hypertension, - - chronic back pain Paternal History Items: Hypertension Sibling History Items: - - pulmonary hypertension in brother Review of Systems Unable to obtain accurate/complete ROS d/t: Due to current intubation and mechanical ventilation status. Objective: The patient's most recent lab work, culture data and imaging studies have all been personally reviewed. The patient's endotracheal tube appears to be high riding on his post intubation plain film x-ray. - Physical Exam General: - - Intubated, sedated and mechanically ventilated. Currently tolerating assist control without any ventilator desynchrony noted. HEENT: Atraumatic, PERRLA, Normocephalic Oral: Moist Mucosa, - - Endotracheal and OG tubes in place Neck: Supple, No Nodes, Trachea Midline Lungs: Normal air movement, No rhonchi, No wheeze, No rales Cardiovascular: Regular rate, Regular Rhythm, Normal S1, Normal S2, No murmurs Abdomen: Bowel Sounds Present, Soft, Non Tender Extremities: No clubbing, No cyanosis, No edema, Capillary Refill Less than 3 Seconds Skin: No rashes, No breakdown Musculoskeletal: No Muscle Wasting Lymphatic: No Cervical, Supraclavicular, or Inguinal Adenopathy Neurological: - - No focal neurological deficits. Currently sedated with a RASS of -2 Vital Signs Temp Pulse Resp BP Pulse Ox 36.3 C L 66 14 100/75 99 09/19/18 05:00 09/19/18 05:05 09/19/18 05:05 09/19/18 05:00 09/19/18 05:05 Oxygen Delivery Method Mechanical Ventilator Weight: 179 lb 3.773 oz Body Mass Index (BMI) 25.5 Intake and Output for Last 24 Hours 09/17/18 09/18/18 09/19/18 23:59 23:59 23:59 Intake Total 1200 / 1200 680 / 680 2706.6 / 2706.6 Output Total 200 / 200 600 / 600 Balance 1000 / 1000 680 / 680 2106.6 / 2106.6 Laboratory Tests Past 24 Hrs 09/19/18 09/19/18 09/19/18 04:50 04:50 04:50 WBC 6.0 RBC 4.11 L Hgb 12.9 L Hct 38.5 L MCV 93.7 MCH 31.4 MCHC 33.5 RDW 13.7 RDW Differential 46.8 H Plt Count 164 MPV 10.6 Immature Gran % (Auto) 0.500 Neut % (Auto) 59.4 Lymph % (Auto) 24.8 [place] % (Auto) 14.3 H Eos % (Auto) 0.7 Baso % (Auto) 0.3 Absolute Neuts (auto) 3.6 Absolute Lymphs (auto) 1.49 Total Counted Not Reportable Sodium 140 Potassium 3.8 Chloride 105 Carbon Dioxide 23.0 Anion Gap 12 BUN 26 H Creatinine 1.10 Estim Creat Clear Calc 92.22 Est GFR (MDRD) Af Amer 94 Est GFR (MDRD) Non-Af 77 BUN/Creatinine Ratio 23.6 H Glucose 105 Calcium 8.4 L Phosphorus 4.3 Total Bilirubin 1.80 H AST 115 H ALT 95 H Alkaline Phosphatase 118 H Total Creatine Kinase 170 Total Protein 6.7 Albumin 3.0 L Globulin 3.7 Albumin/Globulin Ratio 0.8 L Triglycerides 78 Clinical Impression(s) from Imaging Studies Chest X-Ray 09/18/18 23:11 IMPRESSION: There is a nasogastric tube with the tip extending inferiorly outside the field of view below the left hemidiaphragm. There is an endotracheal tube with the tip 8.3 cm superior to the kaitlin. Consider 3 cm of advancement to place the tip within the region of the mid intrathoracic trachea. Electronically Signed: Salvador Mongeford, at 0:05 EST Tel , Service support , Assessment/Plan RECOMMENDATIONS: 1. Repeat plain film chest x-ray this morning to confirm endotracheal tube placement. Adjust if necessary. 2. Continue current supportive measures with mechanical ventilation. 3. Start tube feeds today. 4. We will start scheduled Seroquel with plans to wean and discontinue propofol today. Precedex and fentanyl will be continued. 5. Plan for daily paired spontaneous awakening and breathing trials. 6. Continue thiamine and folate repletion. 7. Discontinue supplemental IV fluids. 8. Continue Lovenox and Pepcid for prophylaxis IMPRESSIONS: 1. Acute respiratory failure The patient was intubated overnight due to profound agitation, which was refractory to the use of ever escalating sedatives. Consent for intubation was obtained from the patient's family. It does appear that the patient's post intubation x-ray revealed a high riding endotracheal tube. Therefore, we will plan to repeat an x-ray this morning to confirm positioning, and adjust if necessary. The patient is currently sedated on propofol, fentanyl and Precedex. We will start scheduled Seroquel with plans to wean and discontinue propofol today. Tube feeds will be initiated today. Therefore, supplemental IV fluids will be discontinued. Plan for daily paired spontaneous awakening and breathing trials, once the patient is felt to be outside of his alcohol withdrawal window. 2. Acute alcohol withdrawal Continue current supportive measures as noted above. We will plan to optimize the patient's sedation regimen as tolerated. Continue thiamine and folate repletion. 3. Personal history of tobacco dependence/hypertension Complicates care, management, recovery and prognosis. Continue nicotine replacement therapy as ordered. TIME: 45 minutes of critical care time, independent of procedures, was spent addressing the patient's acute respiratory failure, acute alcohol withdrawal, review of all data and collaboration with the care team. ([id number]) Code Visit 9xxxx: 12093 Critical care first hour
--- NOTE | 2018-09-19 06:17 | CON.PCM_ITS ---
Reason for Consult Date of Consultation: 09/19/18 Reason for Consultation: Acute respiratory failure History of Present Illness: The patient is a 43-year-old male, with a history as outlined below, who presented on September 16 for alcohol detox. The patient has a history of drinking just under 1 L of vodka daily and has been doing so since the age of 18. He also is an active tobacco user, smoking 1/2 pack of cigarettes daily. The patient was initially admitted to the regular nursing floor and medically managed for alcohol withdrawal symptoms. On the evening of September 18, the patient was noted to be extremely agitated and tremulous. Given the patient's increasing CIWA scores he was transitioned to ICU level of care. During the electron beam operator hours of September 19, despite having been placed on a Precedex infusion, a code efrain was called as the patient became agitated and confr ontational with staff. The patient was felt to be lacking capacity for medical decision making by the overnight care provider. The patient's clinical presentation was discussed with his family and the decision was made to intubate the patient, due to ever increasing need for sedation along with threat/harmful behavior to self and staff members. The patient is currently intubated and mechanically ventilated. He is being maintained on a sedation at regimen which includes propofol, fentanyl and Precedex. He is currently afebrile and hemodynamically stable, with minimal ventilatory requirements. Past Medical History Past Medical History (Chronic Problems): Chronic Problems Alcoholism (Chronic) Anxiety (Chronic) Allergies No Known Allergies Allergy (Verified 02/02/18 14:15) Home Medications: Ambulatory Orders Medication Instructions Recorded Omeprazole [Prilosec] 20 mg PO DAILY 09/16/18 Ondansetron HCl [Zofran] 4 mg PO Q8H PRN PRN 09/16/18 Psychiatric History: Anxiety Lives: Alone Smoking Status: Never smoker Tobacco Use: Chew Alcohol: Heavy Drugs: None - *Family History Maternal History Items: Hypertension, - - chronic back pain Paternal History Items: Hypertension Sibling History Items: - - pulmonary hypertension in brother Review of Systems Unable to obtain accurate/complete ROS d/t: Due to current intubation and mechanical ventilation status. Objective: The patient's most recent lab work, culture data and imaging studies have all been personally reviewed. The patient's endotracheal tube appears to be high riding on his post intubation plain film x-ray. - Physical Exam General: - - Intubated, sedated and mechanically ventilated. Currently tolerating assist control without any ventilator desynchrony noted. HEENT: Atraumatic, PERRLA, Normocephalic Oral: Moist Mucosa, - - Endotracheal and OG tubes in place Neck: Supple, No Nodes, Trachea Midline Lungs: Normal air movement, No rhonchi, No wheeze, No rales Cardiovascular: Regular rate, Regular Rhythm, Normal S1, Normal S2, No murmurs Abdomen: Bowel Sounds Present, Soft, Non Tender Extremities: No clubbing, No cyanosis, No edema, Capillary Refill Less than 3 Seconds Skin: No rashes, No breakdown Musculoskeletal: No Muscle Wasting Lymphatic: No Cervical, Supraclavicular, or Inguinal Adenopathy Neurological: - - No focal neurological deficits. Currently sedated with a RASS of -2 Vital Signs Temp Pulse Resp BP Pulse Ox 36.3 C L 66 14 100/75 99 09/19/18 05:00 09/19/18 05:05 09/19/18 05:05 09/19/18 05:00 09/19/18 05:05 Oxygen Delivery Method Mechanical Ventilator Weight: 179 lb 3.773 oz Body Mass Index (BMI) 25.5 Intake and Output for Last 24 Hours 09/17/18 09/18/18 09/19/18 23:59 23:59 23:59 Intake Total 1200 / 1200 680 / 680 2706.6 / 2706.6 Output Total 200 / 200 600 / 600 Balance 1000 / 1000 680 / 680 2106.6 / 2106.6 Laboratory Tests Past 24 Hrs 09/19/18 09/19/18 09/19/18 04:50 04:50 04:50 WBC 6.0 RBC 4.11 L Hgb 12.9 L Hct 38.5 L MCV 93.7 MCH 31.4 MCHC 33.5 RDW 13.7 RDW Differential 46.8 H Plt Count 164 MPV 10.6 Immature Gran % (Auto) 0.500 Neut % (Auto) 59.4 Lymph % (Auto) 24.8 [place] % (Auto) 14.3 H Eos % (Auto) 0.7 Baso % (Auto) 0.3 Absolute Neuts (auto) 3.6 Absolute Lymphs (auto) 1.49 Total Counted Not Reportable Sodium 140 Potassium 3.8 Chloride 105 Carbon Dioxide 23.0 Anion Gap 12 BUN 26 H Creatinine 1.10 Estim Creat Clear Calc 92.22 Est GFR (MDRD) Af Amer 94 Est GFR (MDRD) Non-Af 77 BUN/Creatinine Ratio 23.6 H Glucose 105 Calcium 8.4 L Phosphorus 4.3 Total Bilirubin 1.80 H AST 115 H ALT 95 H Alkaline Phosphatase 118 H Total Creatine Kinase 170 Total Protein 6.7 Albumin 3.0 L Globulin 3.7 Albumin/Globulin Ratio 0.8 L Triglycerides 78 Clinical Impression(s) from Imaging Studies Chest X-Ray 09/18/18 23:11 IMPRESSION: There is a nasogastric tube with the tip extending inferiorly outside the field of view below the left hemidiaphragm. There is an endotracheal tube with the tip 8.3 cm superior to the kaitlin. Consider 3 cm of advancement to place the tip within the region of the mid intrathoracic trachea. Electronically Signed: Salvador Mongeford, at 0:05 EST Tel , Service support , Assessment/Plan RECOMMENDATIONS: 1. Repeat plain film chest x-ray this morning to confirm endotracheal tube placement. Adjust if necessary. 2. Continue current supportive measures with mechanical ventilation. 3. Start tube feeds today. 4. We will start scheduled Seroquel with plans to wean and discontinue propofol today. Precedex and fentanyl will be continued. 5. Plan for daily paired spontaneous awakening and breathing trials. 6. Continue thiamine and folate repletion. 7. Discontinue supplemental IV fluids. 8. Continue Lovenox and Pepcid for prophylaxis IMPRESSIONS: 1. Acute respiratory failure The patient was intubated overnight due to profound agitation, which was refractory to the use of ever escalating sedatives. Consent for intubation was obtained from the patient's family. It does appear that the patient's post intubation x-ray revealed a high riding endotracheal tube. Therefore, we will plan to repeat an x-ray this morning to confirm positioning, and adjust if nece ssary. The patient is currently sedated on propofol, fentanyl and Precedex. We will start scheduled Seroquel with plans to wean and discontinue propofol today. Tube feeds will be initiated today. Therefore, supplemental IV fluids will be discontinued. Plan for daily paired spontaneous awakening and breathing trials, once the patient is felt to be outside of his alcohol withdrawal window. 2. Acute alcohol withdrawal Continue current supportive measures as noted above. We will plan to optimize the patient's sedation regimen as tolerated. Continue thiamine and folate repletion. 3. Personal history of tobacco dependence/hypertension Complicates care, management, recovery and prognosis. Continue nicotine replacement therapy as ordered. TIME: 45 minutes of critical care time, independent of procedures, was spent addressing the patient's acute respiratory failure, acute alcohol withdrawal, review of all data and collaboration with the care team. ([id number]) Code Visit 9xxxx: [id number] Critical care first hour
--- NOTE | 2018-09-19 07:40 | RAD_ITS ---
STUDY: X-RAY CHEST REASON FOR EXAM: Male, 43 years old. Intubation TECHNIQUE: Frontal view of the chest COMPARISON: 09/18/2018 FINDINGS: There is an endotracheal tube noted with its tip approximately 6 cm above the kaitlin. There is an enteric tube noted with its tip in the stomach. The lungs are clear. There are no pleural effusions. There is no pneumothorax. The heart is normal in size. The visualized osseous structures are within normal limits. RAD/Chest 1 View (Portable) IMPRESSION: Satisfactory position of the support lines and tubes. No acute thoracic pathology. Electronically Signed: Caesar Blount, at 8:19 EST Tel , Service support ,
--- NOTE | 2018-09-19 07:48 | PCM.PN.HOSP ---
Subjective: Patient is a 43-year-old gentleman with history of chronic alcohol abuse admitted with acute alcohol patient was initially admitted to the nursing floor for medical stabilization using Ativan. Patient however became belligerent and extremely delirious during the evening of 09/18/2018. Attempt to restrain patient first with a sitter as well as chemical (more Ativan proved unsuccessful. Patient was reported to be violent. Patient was transferred to the intensive care unit started on Precedex still patient remained delirious patient for his own safety had to be intubated. Objective: GENERAL: Sedated HEENT: Atraumatic; moist oral mucosa EYES; Anicteric, Normal Conjunctiva NECK; supple, normal thyroid, no distended JVD. RESPIRATORY: Diminished to auscultation bilaterally, CARDIOVASCULAR: Regular S1 S2, no audible murmurs GI: soft, non-tender, normoactive bowel sounds, : No Renal angle tenderness; EXTREMITIES: No edema, no clubbing, no cyanosis. MUSCULOSKELETAL: No Joint Tenderness; no muscle waisting NEURO: Sedated on the vent SKIN: No Rash Vitals/I&O's: Vital Signs Temp Pulse Resp BP Pulse Ox 96.4 F L 59 L 14 106/80 99 09/19/18 06:00 09/19/18 07:15 09/19/18 07:15 09/19/18 07:00 09/19/18 07:15 Oxygen Delivery Method Mechanical Ventilator Weight: 81.3 kg Body Mass Index (BMI) 25.5 Intake and Output for Last 24 Hours 09/17/18 09/18/18 09/19/18 23:59 23:59 23:59 Intake Total 1200 / 1200 680 / 680 2831.6 / 2831.6 Output Total 200 / 200 600 / 600 Balance 1000 / 1000 680 / 680 2231.6 / 2231.6 Laboratory Results 09/19/18 04:50: WBC 6.0, RBC 4.11 L, Hgb 12.9 L, Hct 38.5 L, MCV 93.7, MCH 31.4, MCHC 33.5, RDW 13.7, RDW Differential 46.8 H, Plt Count 164, MPV 10.6, Immature Gran % (Auto) 0.500, Neut % (Auto) 59.4, Lymph % (Auto) 24.8, [place] % (Auto) 14.3 H, Eos % (Auto) 0.7, Baso % (Auto) 0.3, Absolute Neuts (auto) 3.6, Absolute Lymphs (auto) 1.49, Total Counted Not Reportable 09/19/18 04:50: Sodium 140, Potassium 3.8, Chloride 105, Carbon Dioxide 23.0, Anion Gap 12, BUN 26 H, Creatinine 1.10, Estim Creat Clear Calc 92.22, Est GFR (MDRD) Af Amer 94, Est GFR (MDRD) Non-Af 77, BUN/Creatinine Ratio 23.6 H, Glucose 105, Calcium 8.4 L, Phosphorus 4.3, Total Bilirubin 1.80 H, AST 115 H, ALT 95 H, Alkaline Phosphatase 118 H, Total Protein 6.7, Albumin 3.0 L, Globulin 3.7, Albumin/Globulin Ratio 0.8 L 09/19/18 04:50: Total Creatine Kinase 170, Triglycerides 78 Current Medications Acetaminophen (Tylenol Liquid) 500 mg GT Q4H PRN PRN PRN Reason: Temp > 100.4 F Al Hydroxide/Mg Hydroxide (Mylanta Ii) 30 ml GT Q6H PRN PRN PRN Reason: dyspesia Albuterol Sulfate (Ventolin Aerosols) 2.5 mg INHALATION Q2H PRN PRN PRN Reason: dyspnea, wheezing Amlodipine Besylate (Norvasc) 10 mg GT DAILY [facility] Bisacodyl (Dulcolax) 10 mg RECTAL DAILY PRN PRN Reason: Constipation Chlorhexidine Gluconate () 15 ml PO BID [facility] Dicyclomine HCl (Bentyl) 20 mg GT Q6H PRN PRN PRN Reason: abdominal discomfort Enoxaparin Sodium (Lovenox) 40 mg SC DAILY@0600 [facility] Last Admin: 09/19/18 05:05 Dose: Not Given Famotidine (Pepcid) 20 mg GT BID [facility] Folic Acid (Folic Acid) 1 mg GT DAILYCM [facility] Hydralazine HCl (Apresoline Iv) 10 mg IV Q4H PRN PRN PRN Reason: hypertension Last Admin: 09/17/18 20:37 Dose: 10 mg Dexmedetomidine HCl 400 mcg/ (Sodium Chloride) 100 mls @ 10.38 mls/hr IV .Q9H39M [facility] Last Admin: 09/19/18 03:15 Dose: 10.38 mls/hr Propofol (Diprivan) 1,000 mg in 100 mls @ 4.89 mls/hr CONT INF .Q12H [facility] Last Admin: 09/19/18 06:07 Dose: 4.89 mls/hr Fentanyl () 100 mls @ 5 mls/hr IV .Q20H [facility] Last Admin: 09/19/18 01:12 Dose: 5 mls/hr Ibuprofen (Motrin Liquid) 600 mg GT Q8H PRN PRN PRN Reason: Mild-Moderate Pain (1-5/10) Loperamide HCl (Imodium) 2 - 4 mg GT UD PRN PRN Reason: LOOSE STOOLS Methocarbamol (Robaxin) 750 mg GT Q6H PRN PRN PRN Reason: Muscle Aches Metoprolol Tartrate (Lopressor (Beta Romel)) 25 mg GT BID [facility] Multivitamins (Multivitamin) [facility] tablet [facility] Nicotine Polacrilex (Rugby Nicotine (Pbkc)) 4 mg PO Q2H PRN PRN PRN Reason: Nicotine Craving Nutritional Formula (Lactose Free) (Ensure Enlive) 120 ml PO 4X/DAY [facility] Last Admin: 09/19/18 02:22 Dose: Not Given Ondansetron HCl (Zofran) 4 mg IV Q6H PRN PRN PRN Reason: Nausea Ondansetron HCl (Zofran Odt) 4 mg GT Q6H PRN PRN PRN Reason: NAUSEA Quetiapine Fumarate (Seroquel) 50 mg GT BID [facility] Senna (Senokot) 1 tablet GT QHS PRN PRN Reason: Constipation Sodium Chloride () 5 - 30 ml IV UD PRN PRN Reason: SALINE FLUSH Last Admin: 09/18/18 21:07 Dose: 10 ml Sodium Chloride () 5 - 30 ml IV UD PRN PRN Reason: SALINE FLUSH Last Admin: 09/18/18 23:15 Dose: 30 ml Thiamine HCl (Vitamin B1) 100 [facility] Medical Necessity - Tobacco Use Smoking Status: Never smoker Tobacco Use: Chew Assessment/Plan All Active Problems Abnormal LFTs (Acute) Alcohol withdrawal (Acute) Patient is a 43-year-old gentleman with history of chronic alcohol abuse who presented with early alcohol withdrawal. Patient has been admitted to regular nursing floor for medical stabilization. 1. Severe Acute alcohol withdrawal. Patient has been admitted to regular nursing floor for medical stabilization using Librium with Ativan as needed. Patient however became belligerent and extremely delirious during the evening of 09/18/2018. Attempt to restrain patient first with a sitter as well as chemical (more Ativan proved unsuccessful. Patient was reported to be violent. Patient was transferred to the intensive care unit started on Precedex he still patient remained delirious patient for his own safety had to be intubated. 2. Chronic alcohol abuse patient was counseled on cessation 3. History of PSVT with previous ablation 4. Tobacco dependence counseled on cessation, offered nicotine patch for tobacco cravings 5. Essential hypertension: Started patient on amlodipine in addition to hydralazine as needed 6. DVT prophylaxis; enoxaparin Active Medications Acetaminophen (Tylenol Liquid) 500 mg GT Q4H PRN PRN PRN Reason: Temp > 100.4 F Al Hydroxide/Mg Hydroxide (Mylanta Ii) 30 ml GT Q6H PRN PRN PRN Reason: dyspesia Albuterol Sulfate (Ventolin Aerosols) 2.5 mg INHALATION Q2H PRN PRN PRN Reason: dyspnea, wheezing Amlodipine Besylate (Norvasc) 10 mg GT DAILY [facility] Bisacodyl (Dulcolax) 10 mg RECTAL DAILY PRN PRN Reason: Constipation Chlorhexidine Gluconate () 15 ml PO BID [facility] Dicyclomine HCl (Bentyl) 20 mg GT Q6H PRN PRN PRN Reason: abdominal discomfort Enoxaparin Sodium (Lovenox) 40 mg SC DAILY@0600 [facility] Last Admin: 09/19/18 05:05 Dose: Not Given Famotidine (Pepcid) 20 mg GT BID [facility] Folic Acid (Folic Acid) 1 mg [facility] Hydralazine HCl (Apresoline Iv) 10 mg IV Q4H PRN PRN PRN Reason: hypertension Last Admin: 09/17/18 20:37 Dose: 10 mg Dexmedetomidine HCl 400 mcg/ (Sodium Chloride) 100 mls @ 10.38 mls/hr IV .Q9H39M [facility] Last Admin: 09/19/18 08:01 Dose: 10.38 mls/hr Propofol (Diprivan) 1,000 mg in 100 mls @ 4.89 mls/hr CONT INF .Q12H [facility] Last Admin: 09/19/18 06:07 Dose: 4.89 mls/hr Fentanyl () 100 mls @ 5 mls/hr IV .Q20H [facility] Last Admin: 09/19/18 01:12 Dose: 5 mls/hr Ibuprofen (Motrin Liquid) 600 mg GT Q8H PRN PRN PRN Reason: Mild-Moderate Pain (1-5/10) Loperamide HCl (Imodium) 2 - 4 mg GT UD PRN PRN Reason: LOOSE STOOLS Methocarbamol (Robaxin) 750 mg GT Q6H PRN PRN PRN Reason: Muscle Aches Metoprolol Tartrate (Lopressor (Beta Romel)) 25 mg GT BID [facility] Multivitamins (Multivitamin) 1 tablet [facility] Nicotine Polacrilex (Rugby Nicotine (Pbkc)) 4 mg PO Q2H PRN PRN PRN Reason: Nicotine Craving Nutritional Formula (Lactose Free) (Ensure Enlive) 120 ml PO 4X/DAY [facility] Last Admin: 09/19/18 08:28 Dose: Not Given Ondansetron HCl (Zofran) 4 mg IV Q6H PRN PRN PRN Reason: Nausea Ondansetron HCl (Zofran Odt) 4 mg GT Q6H PRN PRN PRN Reason: NAUSEA Quetiapine Fumarate (Seroquel) 50 mg GT BID [facility] Senna (Senokot) 1 tablet GT QHS PRN PRN Reason: Constipation Sodium Chloride () 5 - 30 ml IV UD PRN PRN Reason: SALINE FLUSH Last Admin: 09/18/18 21:07 Dose: 10 ml Sodium Chloride () 5 - 30 ml IV UD PRN PRN Reason: SALINE FLUSH Last Admin: 09/18/18 23:15 Dose: 30 ml Thiamine HCl (Vitamin B1) 100 mg [facility] Code Visit Inpatient E&M: 86500 Subs Hosp L3
[2018-09-19] MEDS: Thiamine Hydrochloride 100 MG Tablet GT (09:52)
[2018-09-19] MEDS: Famotidine 20 MG Tablet GT ×2 (09:53→21:03)
[2018-09-19] MEDS: Folic Acid 1 MG Tablet GT (09:53)
[2018-09-19] MEDS: Multivitamins,Therapeutic Tablet 1 TABLET GT (09:53)
[2018-09-19] MEDS: Chlorhexidine 15 ML PO ×2 (09:54→20:53)
[2018-09-19] MEDS: QUEtiapine 25 MG Tablet 50 MG GT ×2 (09:54→21:03)
[2018-09-19] MEDS: Jevity 1.5 1,000 ML 55 ML GT (11:43)
--- NOTE | 2018-09-19 21:20 | NURSING ---
at 2100 sujit pt was very agitated (RASS +2) and required two RNs and a change in his sedation medication levels to bring him back to a RASS of -1
[2018-09-20] VITALS (35 sets, daily range): BP systolic 83–143; BP diastolic 51–71; PULSE 60–81; RESP 14–18; TEMP 36.3–37.6; O2SAT 97–100
[2018-09-20] MEDS: fentaNYL drip 100 ML 5 MCG IV ×3 (01:05→20:45)
--- NOTE | 2018-09-20 01:41 | NURSING ---
pt wakes up startled and aggressive 1-2 times an hour.
[2018-09-20] MEDS: Propofol 10MG/Ml 1,000 MG/100 ML Bottle 4.89 MG CONT INF ×3 (03:22→19:56)
[2018-09-20] MEDS: Enoxaparin 40 MG/0.4 ML Syringe SC (05:09)
--- NOTE | 2018-09-20 07:26 | PN_ITS ---
Subjective: Patient seen remains on the vent easily arousable. Blood pressure appears to have stabilized. Objective: GENERAL: On the vent easily arousable HEENT: Atraumatic; moist oral mucosa EYES; Anicteric, Normal Conjunctiva NECK; supple, normal thyroid, no distended JVD. RESPIRATORY: Diminished to auscultation bilaterally, CARDIOVASCULAR: Regular S1 S2, no audible murmurs GI: soft, non-tender, normoactive bowel sounds, : No Renal angle tenderness; EXTREMITIES: No edema, no clubbing, no cyanosis. MUSCULOSKELETAL: No Joint Tenderness; no muscle waisting NEURO: No focal deficit SKIN: No Rash Vitals/I&O's: Vital Signs Temp Pulse Resp BP Pulse Ox 97.3 F L 64 14 93/64 99 09/20/18 05:00 09/20/18 07:00 09/20/18 07:00 09/20/18 07:00 09/20/18 07:00 Oxygen Delivery Method Mechanical Ventilator Weight: 85.1 kg Body Mass Index (BMI) 25.5 Intake and Output for Last 24 Hours 09/18/18 09/19/18 09/20/18 23:59 23:59 23:59 Intake Total 680 / 680 5047.5 / 5047.5 658 / 658 Output Total 1075 / 1075 175 / 175 Balance 680 / 680 3972.5 / 3972.5 483 / 483 Current Medications Acetaminophen (Tylenol Liquid) 500 mg GT Q4H PRN PRN PRN Reason: Temp > 100.4 F Al Hydroxide/Mg Hydroxide (Mylanta Ii) 30 ml GT Q6H PRN PRN PRN Reason: dyspesia Albuterol Sulfate (Ventolin Aerosols) 2.5 mg INHALATION Q2H PRN PRN PRN Reason: dyspnea, wheezing Bisacodyl (Dulcolax) 10 mg RECTAL DAILY PRN PRN Reason: Constipation Chlorhexidine Gluconate () 15 ml PO BID [facility] Last Admin: 09/19/18 20:53 Dose: 15 ml Dicyclomine HCl (Bentyl) 20 mg GT Q6H PRN PRN PRN Reason: abdominal discomfort Enoxaparin Sodium (Lovenox) 40 mg SC DAILY@0600 [facility] Last Admin: 09/20/18 05:09 Dose: 40 mg Famotidine (Pepcid) 20 mg GT BID [facility] Last Admin: 09/19/18 21:03 Dose: 20 mg Folic Acid (Folic Acid) [facility] Last Admin: 09/19/18 09:53 Dose: 1 mg Hydralazine HCl (Apresoline Iv) 10 mg IV Q4H PRN PRN PRN Reason: hypertension Last Admin: 09/17/18 20:37 Dose: 10 mg Propofol (Diprivan) 1,000 mg in 100 mls @ 4.89 mls/hr CONT INF .Q12H [facility] Last Admin: 09/20/18 03:22 Dose: 4.89 mls/hr Fentanyl () 100 mls @ 5 mls/hr IV .Q20H [facility] Last Admin: 09/20/18 01:05 Dose: 5 mls/hr Enteral Nutritional Formula (Jevity 1.5) 1,000 mls @ 55 mls/hr GT .[id number] [facility] Last Admin: 09/20/18 06:18 Dose: Not Given Dexmedetomidine HCl 1,000 mcg/ (Sodium Chloride) 250 mls @ 10.38 mls/hr IV .Q24H6M [facility] Last Admin: 09/19/18 23:45 Dose: 10.38 mls/hr Ibuprofen (Motrin Liquid) 600 mg GT Q8H PRN PRN PRN Reason: Mild-Moderate Pain (1-5/10) Loperamide HCl (Imodium) 2 - 4 mg GT UD PRN PRN Reason: LOOSE STOOLS Methocarbamol (Robaxin) 750 mg GT Q6H PRN PRN PRN Reason: Muscle Aches Multivitamins (Multivitamin) [facility] tablet [facility] Last Admin: 09/19/18 09:53 Dose: 1 tablet Nicotine Polacrilex (Rugby Nicotine (Pbkc)) 4 mg PO Q2H PRN PRN PRN Reason: Nicotine Craving Nutritional Formula (Lactose Free) (Ensure Enlive) 120 ml PO 4X/DAY [facility] Last Admin: 09/19/18 20:53 Dose: Not Given Ondansetron HCl (Zofran) 4 mg IV Q6H PRN PRN PRN Reason: Nausea Ondansetron HCl (Zofran Odt) 4 mg GT Q6H PRN PRN PRN Reason: NAUSEA Quetiapine Fumarate (Seroquel) 50 mg GT BID [facility] Last Admin: 09/19/18 21:03 Dose: 50 mg Senna (Senokot) 1 tablet GT QHS PRN PRN Reason: Constipation Sodium Chloride () 5 - 30 ml IV UD PRN PRN Reason: SALINE FLUSH Last Admin: 09/18/18 21:07 Dose: 10 ml Sodium Chloride () 5 - 30 ml IV UD PRN PRN Reason: SALINE FLUSH Last Admin: 09/18/18 23:15 Dose: 30 ml Thiamine HCl (Vitamin B1) 100 mg GT DAILYCM [facility] Last Admin: 09/19/18 09:52 Dose: 100 mg Medical Necessity - Tobacco Use Smoking Status: Never smoker Tobacco Use: Chew Assessment/Plan All Active Problems Abnormal LFTs (Acute) Alcohol withdrawal (Acute) Patient is a 43-year-old gentleman with history of chronic alcohol abuse who presented with early alcohol withdrawal. Patient has been admitted to regular nursing floor for medical stabilization. 1. Severe Acute alcohol withdrawal. Patient was initially admitted to regular nursing floor for medical stabilization using Librium with Ativan as needed. Patient however became belligerent and extremely delirious during the evening of 09/18/2018. Attempt to restrain patient first with a sitter as well as chemical (more Ativan proved unsuccessful. Patient was reported to be violent. Patient was transferred to the intensive care unit started on Precedex he still patient remained delirious patient for his own safety had to be intubated. Patient seen remains on the vent with no plans for weaning on 09/20/2018 2. Chronic alcohol abuse patient was counseled on cessation 3. History of PSVT with previous ablation 4. Tobacco dependence counseled on cessation, offered nicotine patch for tobacco cravings 5. Essential hypertension: Started patient on amlodipine in addition to hydralazine as needed 6. DVT prophylaxis; enoxaparin Code Visit Inpatient E&M: 09050 Subs Hosp L3
--- NOTE | 2018-09-20 08:31 | PN_ITS ---
Subjective: Patient did okay overnight. Patient remains significantly agitated and is requiring significant sedation to maintain synchrony with the ventilator. Patient is not cooperative with any questioning. Patient did not have a spontaneous breathing trial this morning secondary to alcohol withdrawal. No significant secretions have been reported from endotracheal tube. General: - - Intubated and sedated. Good ventilator synchrony. Appears older than stated age. HEENT: Atraumatic, PERRLA, EOMI, Normocephalic, - - No scleral icterus or injection noted. Oral: Moist Mucosa, No Gingival or Mucosal Lesions/ Ulcerations Neck: Supple, No JVD, No Nodes, Trachea Midline Lungs: Clear to auscultation, Normal air movement, No rhonchi, No wheeze, No rales, - - Symmetric expansion. No dullness to percussion. Cardiovascular: Regular rate, Regular Rhythm, Normal S1, Normal S2, No murmurs, No rub noted, No Gallop Abdomen: Bowel Sounds Present, Soft, Non Tender, Non-Distended Extremities: No clubbing, No cyanosis, No edema, Capillary Refill Less than 3 Seconds Skin: No rashes, No breakdown Musculoskeletal: No Muscle Wasting Lymphatic: No Cervical, Supraclavicular, or Inguinal Adenopathy Neurological: Neuro grossly intact - Patient not cooperative with examination., - - RASS -2 Psych/Mental Status: Flat Affect, Impulsive Vital Signs Temp Pulse Resp BP Pulse Ox 36.3 C L 64 14 93/64 99 09/20/18 05:00 09/20/18 07:00 09/20/18 07:00 09/20/18 07:00 09/20/18 07:00 Oxygen Delivery Method Mechanical Ventilator Weight: 85.1 kg Body Mass Index (BMI) 25.5 Intake and Output for Last 24 Hours 09/18/18 09/19/18 09/20/18 23:59 23:59 23:59 Intake Total 680 / 680 5047.5 / 5047.5 658 / 658 Output Total 1075 / 1075 175 / 175 Balance 680 / 680 3972.5 / 3972.5 483 / 483 Labs (Last 48 Hours) 09/19/18 09/19/18 09/19/18 04:50 04:50 04:50 WBC 6.0 RBC 4.11 L Hgb 12.9 L Hct 38.5 L MCV 93.7 MCH 31.4 MCHC 33.5 RDW 13.7 RDW Differential 46.8 H Plt Count 164 MPV 10.6 Immature Gran % (Auto) 0.500 Neut % (Auto) 59.4 Lymph % (Auto) 24.8 Rush % (Auto) 14.3 H Eos % (Auto) 0.7 Baso % (Auto) 0.3 Absolute Neuts (auto) 3.6 Absolute Lymphs (auto) 1.49 Total Counted Not Reportable Sodium 140 Potassium 3.8 Chloride 105 Carbon Dioxide 23.0 Anion Gap 12 BUN 26 H Creatinine 1.10 Estim Creat Clear Calc 92.22 Est GFR (MDRD) Af Amer 94 Est GFR (MDRD) Non-Af 77 BUN/Creatinine Ratio 23.6 H Glucose 105 Calcium 8.4 L Phosphorus 4.3 Magnesium Total Bilirubin 1.80 H AST 115 H ALT 95 H Alkaline Phosphatase 118 H Total Creatine Kinase 170 Total Protein 6.7 Albumin 3.0 L Globulin 3.7 Albumin/Globulin Ratio 0.8 L Triglycerides 78 09/20/18 08:20 WBC RBC Hgb Hct MCV MCH MCHC RDW RDW Differential Plt Count MPV Immature Gran % (Auto) Neut % (Auto) Lymph % (Auto) Rush % (Auto) Eos % (Auto) Baso % (Auto) Absolute Neuts (auto) Absolute Lymphs (auto) Total Counted Sodium Pending Potassium Pending Chloride Pending Carbon Dioxide Pending Anion Gap Pending BUN Pending Creatinine Pending Estim Creat Clear Calc Est GFR (MDRD) Af Amer Pending Est GFR (MDRD) Non-Af Pending BUN/Creatinine Ratio Pending Glucose Pending Calcium Pending Phosphorus Magnesium Pending Total Bilirubin AST ALT Alkaline Phosphatase Total Creatine Kinase Total Protein Albumin Globulin Albumin/Globulin Ratio Triglycerides Medical Necessity - Tobacco Use Smoking Status: Never smoker Tobacco Use: Chew Assessment/Plan All Active Problems Abnormal LFTs (Acute) Alcohol withdrawal (Acute) RECOMMENDATIONS: 1. Increase Seroquel dosing 2. Continue current supportive measures with mechanical ventilation. 3. Continue tube feeds. 4. Attempt to wean propofol today. Precedex and fentanyl will be continued. 5. Plan for daily paired spontaneous awakening and breathing trials starting tomorrow. 6. Continue thiamine and folate repletion. 7. Continue Lovenox and Pepcid for prophylaxis IMPRESSIONS: 1. Acute respiratory failure The patient was intubated overnight due to profound agitation, which was refractory to the use of ever escalating sedatives. Consent for intubation was obtained from the patient's family. Endotracheal tube is currently in appropriate position. Patient is requiring significant amounts of fentanyl, Precedex and propofol therapy. Will increase Seroquel therapy in an attempt to decrease propofol. Do anticipate extubation on Precedex therapy. Will initiate spontaneous breathing and awakening trials tomorrow. Tube feeds have been initiated. 2. Acute alcohol withdrawal Continue current supportive measures as noted above. We will plan to op timize the patient's sedation regimen as tolerated. Continue thiamine and folate repletion. 3. Personal history of tobacco dependence/hypertension Complicates care, management, recovery and prognosis. Continue nicotine replacement therapy as ordered. TIME: 33 minutes of critical care time, independent of procedures, was spent addressing the patient's acute respiratory failure, acute alcohol withdrawal, review of all data and collaboration with the care team. (7:30 AM to 8:30 AM) Code Visit 9xxxx: [id number] Critical care first hour
[2018-09-20] MEDS: 0.9% NaCl Peripheral Flush Adult/Peds IV (08:39)
[2018-09-20] MEDS: Multivitamins,Therapeutic Tablet 1 TABLET GT (08:40)
[2018-09-20] MEDS: Thiamine Hydrochloride 100 MG Tablet GT (08:40)
[2018-09-20] MEDS: QUEtiapine 100 MG Tablet GT ×2 (08:45→21:13)
[2018-09-20 08:47] LABS: Anion Gap 12 (5-15); BUN 20 mg/dL (7-18); BUN/Creat Ratio 20.6 RATIO (10-20); Calcium,Total 8.8 mg/dL (8.5-10.1); Chloride 104 mmol/L (98-107); Creatinine, Serum 0.97 mg/dL (0.70-1.30); EST Glomerular Filtration Rate 89 mL/min (>60); Est Glom Filt Rate - Afr Amer 108 mL/min (>60); Estimated Creatinine Clearance 104.58 ml/min; Glucose 79 mg/dL (74-106); Potassium 3.8 mmol/L (3.5-5.1); Sodium Level 139 mmol/L (136-145)
[2018-09-20] MEDS: Folic Acid 1 MG Tablet GT (08:47)
[2018-09-20] MEDS: Famotidine 20 MG Tablet GT ×2 (08:47→21:17)
[2018-09-20] MEDS: Chlorhexidine 15 ML PO ×2 (09:44→21:17)
[2018-09-20] MEDS: chlordiazePOXIDE 25 MG Capsule 100 MG GT (16:22)
--- NOTE | 2018-09-20 20:08 | NURSING ---
Residual at 300 out of OGT. Reinstilled same, and held tube feed til next assessment.
[2018-09-20] MEDS: Senna Tablet 1 TABLET GT (22:38)
[2018-09-21] VITALS (31 sets, daily range): BP systolic 98–126; BP diastolic 56–112; PULSE 75–100; RESP 14–31; TEMP 36.4–39.6; O2SAT 93–100
--- NOTE | 2018-09-21 00:04 | NURSING ---
Continuing to hold tube feed. Residual 375ml. Returned to pt 120ml and discarded 255ml. Pt is intermittently spontaneously awake, and will sit up in bed, throw feet off side, and appears confused. Is able to be redirected and calmed.
[2018-09-21] MEDS: chlordiazePOXIDE 25 MG Capsule 100 MG GT ×3 (00:32→15:30)
[2018-09-21] MEDS: Acetaminophen 650 MG/20 ML UDC 500 MG GT (02:01)
[2018-09-21] MEDS: CHLORHEXIDINE GLUC 2% CLOTH 1 EACH TOWELETTE TOPICAL (02:18)
[2018-09-21] MEDS: Propofol 10MG/Ml 1,000 MG/100 ML Bottle 4.89 MG CONT INF (03:36)
[2018-09-21] MEDS: 0.9% NaCl Peripheral Flush Adult/Peds IV ×2 (03:55→06:49)
[2018-09-21 04:18] LABS: Anion Gap 14 (5-15); BUN 18 mg/dL (7-18); BUN/Creat Ratio 18.3 RATIO (10-20); Calcium,Total 9.1 mg/dL (8.5-10.1); Chloride 101 mmol/L (98-107); Creatinine, Serum 0.98 mg/dL (0.70-1.30); EST Glomerular Filtration Rate 88 mL/min (>60); Est Glom Filt Rate - Afr Amer 107 mL/min (>60); Estimated Creatinine Clearance 103.52 ml/min; Glucose 108 mg/dL (74-106); Magnesium 2.1 mg/dL (1.6-2.6); Sodium Level 137 mmol/L (136-145)
[2018-09-21] MEDS: Enoxaparin 40 MG/0.4 ML Syringe SC (06:00)
[2018-09-21 06:21] LABS: Allen Test POS; Base Excess -3 mmol/L (-2 to +2); Bicarbonate 21.5 mmol/L (22-26); Blood Gas Specimen Type ART; FI02 30; Mode CPAP PS; O2 Delivery Device Vent; PEEP 5; PO2 81 mmHG (75-100); PS 5; SITE L Radial; SO2 96 % (95-99); Time Given 610; Total Carbon Dioxide 22 mmol/L; pCO2 33.2 mmHg (35-45); pH 7.42 (7.35-7.45)
--- NOTE | 2018-09-21 07:04 | NURSING ---
Pt extubated at 06:44 this morning. Pt is cooperative and following commands. Placed on 2L NC and maintaining >95%. Pt is A&O to self, place, and situation.
--- NOTE | 2018-09-21 08:19 | PCM.PROGNOTE ---
Subjective: Chief complaint: Follow-up after admission for acute severe alcohol withdrawal/delirium tremens required endotracheal intubation and sedation. Patient seen and examined. No acute events overnight. Patient was extubated this morning. He complains of sore throat and throat pain because of the intubation. He denied chest pain or shortness of breath. Denies abdominal pain, nausea or vomiting. He remains on IV Precedex drip. His vital signs are stable. - Physical Exam General: Alert, Oriented x3, Cooperative, No apparent distress HEENT: Atraumatic, PERRLA, EOMI, Normocephalic Oral: Moist Mucosa, No Gingival or Mucosal Lesions/ Ulcerations Neck: Supple, No JVD, Negative Carotid Bruits, Trachea Midline, Thyroid Normal Size and Texture Lungs: Clear to auscultation, No rhonchi, No wheeze, No rales, Diminished Cardiovascular: Regular rate, Regular Rhythm, Normal S1, Normal S2, No murmurs, PMI Normal Abdomen: Bowel Sounds Present, Soft, Non Tender, Non-Distended, No Hepato-splenomegaly Extremities: No clubbing, No cyanosis, No edema Skin: No rashes, No breakdown Lymphatic: No Cervical, Supraclavicular, or Inguinal Adenopathy Neurological: Cranial nerves II-XII grossly intact, Motor Exam 5/5 strength throughout Psych/Mental Status: Normal Affect, Appropriate, Alert and oriented to time, place, person, mood and affect Vital Signs Temp Pulse Resp BP Pulse Ox 100.0 F H 91 16 116/71 97 09/21/18 04:00 09/21/18 06:44 09/21/18 06:44 09/21/18 06:44 09/21/18 06:55 Oxygen Flow Rate (L/min) 2 Oxygen Delivery Method Nasal Cannula Weight: 187 lb 13.341 oz Body Mass Index (BMI) 25.5 Intake and Output for Last 24 Hours 09/19/18 09/20/18 09/21/18 23:59 23:59 23:59 Intake Total 5047.5 / 5047.5 2841.9 / 2841.9 318.9 / 318.9 Output Total 1075 / 1075 625 / 625 525 / 525 Balance 3972.5 / 3972.5 2216.9 / 2216.9 -206.1 / -206.1 Laboratory Tests Past 24 Hrs 1109/21/18 09/21/18 08:20 04:00 06:17 Specimen Type ART Sample Site L Radial pH 7.42 Bicarbonate Actual 21.5 L POC Total CO2 22 Base Excess -3 L O2 Saturation 96 O2 % 30 ABG pCO2 33.2 L ABG pO2 81 Reymundo Test POS O2 Delivery Device Vent Vent Mode CPAP PS POC PEEP 5 POC Pressure Suppt 5 Blood Gas Notified Whom ICU Blood Gas Notified Time 610 Sodium 139 137 Potassium 3.8 4.0 Chloride 104 101 Carbon Dioxide 23.0 22.0 Anion Gap 12 14 BUN 20 H 18 Creatinine 0.97 0.98 Estim Creat Clear Calc 104.58 103.52 Est GFR (MDRD) Af Amer 108 107 Est GFR (MDRD) Non-Af 89 88 BUN/Creatinine Ratio 20.6 H 18.3 Glucose 79 108 H Calcium 8.8 9.1 Magnesium 2.0 2.1 Medical Necessity - Tobacco Use Tobacco Use: Chew Assessment/Plan All Active Problems Abnormal LFTs (Acute) Alcohol withdrawal (Acute) This is a 43 years old male patient admitted for acute alcohol withdrawal for medical stabilization and his hospital course complicated by severe agitation and delirium tremens that required sedation and mechanical ventilation. #1 acute alcohol withdrawal/delirium tremens: Status post extubation, remains on IV Precedex drip. At this time, he is con and stable. His vital signs are stable. Blood pressure improved, no tachycardia. He is on folic acid and thiamine as well as multivitamins, Librium, methocarbamol, Imodium, Seroquel and Zofran. Plan to potassium treatment, wean off Precedex, speech therapy evaluation, switch medications to p.o. if cleared by speech therapy. #2 acute respiratory failure: Patient was intubated and started on mechanical ventilation for acute severe delirium tremens. Status post extubation this morning. Respiratory status stable, maintaining pulse ox on room air. Plan as above. #3 elevated LFT: This is likely because of chronic liver disease secondary to alcohol abuse. #4 history of paroxysmal SVT: Status post ablation. He is in sinus rhythm, rate is stable. #5 tobacco abuse: Nicotine polacrilex. #6 DVT prophylaxis: Subcu Lovenox. This note was generated with [employer] dictation software. It may contain incorrect words, spelling, and punctuation that were not noted in checking the note before signing. Code Visit Inpatient E&M: 83166 Subs Hosp L2
[2018-09-21] MEDS: Multivitamins,Therapeutic Tablet 1 TABLET GT (08:30)
[2018-09-21] MEDS: Thiamine Hydrochloride 100 MG Tablet GT (08:30)
[2018-09-21] MEDS: Folic Acid 1 MG Tablet GT (08:32)
--- NOTE | 2018-09-21 09:59 | CASEMGMT ---
SW spoke w/Alia Goodwin from [facility], they did set up a discharge plan for pt already. Alia Goodwin will follow up w/pt when appropriate and speak w/him, to review the discharge plan w/pt. HARVEY Burroughs, SPONSORSHIP MANAGER
--- NOTE | 2018-09-21 10:00 | RAD_ITS ---
STUDY: X-RAY - ABDOMEN/PELVIS REASON FOR EXAM: Male, 43 years old. Abdominal distention. Alcohol withdrawal. TECHNIQUE: Two AP supine views of the abdomen and pelvis. COMPARISON: None. FINDINGS: Mildly distended small bowel loops in the upper and mid abdomen. A small amount of gas is seen throughout the colon. This may represent either an ileus pattern or early small bowel obstruction. Follow-up is recommended. The visualized liver, spleen and kidneys are grossly normal in size and morphology. Normal soft tissue structures. Normal visualized osseous structures. RAD/Abdomen Single View (Portable) IMPRESSION: Mildly dilated small bowel loops in the upper mid abdomen with a small amount of gas seen in the colon. Early small bowel obstruction should be ruled out. Follow-up is recommended. Electronically Signed: Cesar Liriano MD at 14:08 EST Tel [phone], Service support ,
--- NOTE | 2018-09-21 10:14 | PCM.PN.INT ---
Subjective: Patient did well overnight. Patient did have some increased gastric secretions reported prior to intubation. Patient was able to have a spontaneous breathing trial this morning and tolerated well. Stomach was emptied prior to extubation. Patient did have 2 large liquid stools so far this morning. Patient was extubated under my direct supervision. Patient has had some fevers through the morning, but no hemodynamic instability. Patient continues to be very tremorous with intention. General: Alert, Oriented x3, Cooperative - Intermittently, but directable, - - Intention tremor noted. Appears older than stated age. HEENT: Atraumatic, PERRLA, EOMI, Normocephalic, - - Slight scleral injection without icterus Oral: Moist Mucosa, No Gingival or Mucosal Lesions/ Ulcerations Neck: Supple, No JVD, No Nodes, Trachea Midline Lungs: Clear to auscultation, Normal air movement, No rhonchi, No wheeze, No rales, - - Symmetric expansion. No dullness to percussion. Cardiovascular: Regular rate, Regular Rhythm, Normal S1, Normal S2, No murmurs, No rub noted, No Gallop Abdomen: Bowel Sounds Present, Soft, Non Tender, Non-Distended Extremities: No clubbing, No cyanosis, Edema - Trace Skin: - - No significant change compared to previous Musculoskeletal: No Tenderness to Palpation of Joints or Extremities, No Muscle Wasting Lymphatic: No Cervical, Supraclavicular, or Inguinal Adenopathy Neurological: Cranial nerves II-XII grossly intact, Neuro grossly intact, Motor Exam 5/5 strength throughout, - - Significant tremor noted Psych/Mental Status: Normal Affect, Appropriate Vital Signs Temp Pulse Resp BP Pulse Ox 37.8 C H 90 16 116/71 97 09/21/18 04:00 09/21/18 07:00 09/21/18 06:44 09/21/18 06:44 09/21/18 06:55 Oxygen Flow Rate (L/min) 2 Oxygen Delivery Method Room Air Weight: 85.2 kg Body Mass Index (BMI) 25.5 Intake and Output for Last 24 Hours 09/19/18 09/20/18 09/21/18 23:59 23:59 23:59 Intake Total 5047.5 / 5047.5 2841.9 / 2841.9 318.9 / 318.9 Output Total 1075 / 1075 625 / 625 525 / 525 Balance 3972.5 / 3972.5 2216.9 / 2216.9 -206.1 / -206.1 Labs (Last 48 Hours) 09/20/18 09/21/18 09/21/18 08:20 04:00 06:17 Specimen Type ART Sample Site L Radial pH 7.42 Bicarbonate Actual 21.5 L POC Total CO2 22 Base Excess -3 L O2 Saturation 96 O2 % 30 ABG pCO2 33.2 L ABG pO2 81 Reymundo Test POS O2 Delivery Device Vent Vent Mode CPAP PS POC PEEP 5 POC Pressure Suppt 5 Blood Gas Notified Whom ICU MD Blood Gas Notified Time 610 Sodium 139 137 Potassium 3.8 4.0 Chloride 104 101 Carbon Dioxide 23.0 22.0 Anion Gap 12 14 BUN 20 H 18 Creatinine 0.97 0.98 Estim Creat Clear Calc 104.58 103.52 Est GFR (MDRD) Af Amer 108 107 Est GFR (MDRD) Non-Af 89 88 BUN/Creatinine Ratio 20.6 H 18.3 Glucose 79 108 H Calcium 8.8 9.1 Magnesium 2.0 2.1 Medical Necessity - Tobacco Use Smoking Status: Never smoker Tobacco Use: Chew Assessment/Plan All Active Problems Abnormal LFTs (Acute) Alcohol withdrawal (Acute) RECOMMENDATIONS: 1. Increase Seroquel dosing 2. Continue current supportive measures with mechanical ventilation. 3. Continue tube feeds. 4. Wean off Precedex through the day 5. Increase activity as tolerated 6. Discontinue thiamine and folate repletion. Continue multivitamin 7. Continue Lovenox and Pepcid for prophylaxis IMPRESSIONS: 1. Acute respiratory failure Patient was able to tolerate spontaneous breathing trial and was extubated without complications. Some concern for increased gastric contents, but this was emptied prior to extubation. Patient is having bowel movements. Patient tolerating room air at this time. Patient is still receiving Precedex therapy, but this will be discontinued. 2. Acute alcohol withdrawal Continue current supportive measures as noted above. We will plan to optimize the patient's sedation regimen as tolerated. Discontinue thiamine and folate repletion. Transition to multivitamin. Patient continuing with Librium 3 times daily. Likely wean tomorrow. 3. Personal history of tobacco dependence/hypertension Complicates care, management, recovery and prognosis. Continue nicotine replacement therapy as ordered. TIME: 37 minutes of critical care time, independent of procedures, was spent addressing the patient's acute respiratory failure, acute alcohol withdrawal, review of all data and collaboration with the care team. (8 AM to 10 AM) Code Visit 9xxxx: [id number] Critical care first hour
[2018-09-21] MEDS: Famotidine 20 MG Tablet GT ×2 (10:28→21:34)
[2018-09-21] MEDS: QUEtiapine 100 MG Tablet 150 MG GT ×2 (10:28→21:34)
[2018-09-21] MEDS: 0.9% Normal Saline 1,000 ML 125 ML IV ×2 (10:31→19:31)
[2018-09-21] MEDS: LORazepam 1 MG Tablet 2 MG PO (16:33)
--- NOTE | 2018-09-21 17:07 | CHAPLAIN ---
Type of Pastoral Visit _x__ Initial Visit ___ Follow-up Visit ___ On-call Visit ___ General Patient Visit ___ Spiritual Assessment ___ Family Conference ___ Bereavement ___ Rapid Response ___ Code Blue ___ Other (describe below) Pastoral Care Referral From _x__ Patient ___ Family ___ Nurse ___ Physician ___ Driver Courier ___ Bunch Trimmer Mold ___ Other (describe below) Sacrament/Intervention ___ Active listening ___ Anointing ___ Restorationism ___ Bereavement ___ Communion ___ Dariana exploration ___ ___ Life review _x__ Prayer ___ Reconciliation ___ Sacrament of Sick _x__ Supportive presence ___ Wedding ___ Other (describe below) Pastoral Comments
[2018-09-22] VITALS (31 sets, daily range): BP systolic 110–162; BP diastolic 68–112; PULSE 84–118; RESP 16–32; TEMP 36.6–37.3; O2SAT 21–100
[2018-09-22] MEDS: CHLORHEXIDINE GLUC 2% CLOTH 1 EACH TOWELETTE TOPICAL (00:06)
[2018-09-22] MEDS: LORazepam 1 MG Tablet 2 MG PO ×2 (00:54→10:20)
[2018-09-22 04:53] LABS: Anion Gap 10 (5-15); BUN 14 mg/dL (7-18); BUN/Creat Ratio 19.4 RATIO (10-20); Calcium,Total 8.7 mg/dL (8.5-10.1); Chloride 109 mmol/L (98-107); Creatinine, Serum 0.72 mg/dL (0.70-1.30); EST Glomerular Filtration Rate 126 mL/min (>60); Est Glom Filt Rate - Afr Amer 153 mL/min (>60); Glucose 91 mg/dL (74-106); Potassium 3.6 mmol/L (3.5-5.1); Sodium Level 140 mmol/L (136-145)
[2018-09-22] MEDS: LORazepam 2 MG/ML Syringe IV ×8 (05:10→23:52)
[2018-09-22] MEDS: Enoxaparin 40 MG/0.4 ML Syringe SC (05:12)
--- NOTE | 2018-09-22 07:19 | PCM.PN.INT ---
Subjective: Patient did okay overnight. Patient was noted to have watery diarrhea through the day yesterday. This was sent and has come back positive for C. difficile. Patient did have fever and was initiated on vancomycin p.o. Patient has had significant improvement in diarrhea with only 2 episodes overnight. Patient continues to have issues with confusion and impulsive behavior, so Precedex has not been completely discontinued. General: Alert, Confused, Disoriented, - - Appears stated age. Speaking in full sentences. HEENT: Atraumatic, PERRLA, EOMI, Normocephalic, - - No scleral icterus or injection noted. Oral: Moist Mucosa, No Gingival or Mucosal Lesions/ Ulcerations Neck: Supple, No JVD, No Nodes, Trachea Midline Lungs: Clear to auscultation, Normal air movement, No rhonchi, No wheeze, No rales Cardiovascular: Regular rate, Regular Rhythm, Normal S1, Normal S2, No murmurs, No rub noted, No Gallop Abdomen: Soft, Non Tender, Non-Distended, Hyperactive Bowel Sounds Extremities: No clubbing, No cyanosis, No edema, Capillary Refill Less than 3 Seconds Skin: No rashes, No breakdown Musculoskeletal: No Tenderness to Palpation of Joints or Extremities Lymphatic: No Cervical, Supraclavicular, or Inguinal Adenopathy Neurological: Cranial nerves II-XII grossly intact, Neuro grossly intact, Motor Exam 5/5 strength throughout Psych/Mental Status: Anxious, Impulsive, Restless Vital Signs Temp Pulse Resp BP Pulse Ox 36.6 C 98 26 H 110/68 98 09/22/18 00:00 09/22/18 06:00 09/22/18 06:00 09/22/18 06:00 09/22/18 06:00 Oxygen Flow Rate (L/min) 2 Oxygen Delivery Method Room Air Weight: 84.1 kg Body Mass Index (BMI) 25.5 Intake and Output for Last 24 Hours 09/20/18 09/21/18 09/22/18 23:59 23:59 23:59 Intake Total 2841.9 / 2841.9 2284.9 / 2284.9 776 / 776 Output Total 625 / 625 675 / 675 225 / 225 Balance 2216.9 / 2216.9 1609.9 / 1609.9 551 / 551 Labs (Last 48 Hours) 09/20/18 09/21/18 09/21/18 08:20 04:00 06:17 Specimen Type ART Sample Site L Radial pH 7.42 Bicarbonate Actual 21.5 L POC Total CO2 22 Base Excess -3 L O2 Saturation 96 O2 % 30 ABG pCO2 33.2 L ABG pO2 81 Reymundo Test POS O2 Delivery Device Vent Vent Mode CPAP PS POC PEEP 5 POC Pressure Suppt 5 Blood Gas Notified Whom ICU MD Blood Gas Notified Time 610 Sodium 139 137 Potassium 3.8 4.0 Chloride 104 101 Carbon Dioxide 23.0 22.0 Anion Gap 12 14 BUN 20 H 18 Creatinine 0.97 0.98 Estim Creat Clear Calc 104.58 103.52 Est GFR (MDRD) Af Amer 108 107 Est GFR (MDRD) Non-Af 89 88 BUN/Creatinine Ratio 20.6 H 18.3 Glucose 79 108 H Calcium 8.8 9.1 Magnesium 2.0 2.1 09/22/18 04:20 Specimen Type Sample Site pH Bicarbonate Actual POC Total CO2 Base Excess O2 Saturation O2 % ABG pCO2 ABG pO2 Reymundo Test O2 Delivery Device Vent Mode POC PEEP POC Pressure Suppt Blood Gas Notified Whom Blood Gas Notified Time Sodium 140 Potassium 3.6 Chloride 109 H Carbon Dioxide 21.0 Anion Gap 10 BUN 14 Creatinine 0.72 Estim Creat Clear Calc 140.90 Est GFR (MDRD) Af Amer 153 Est GFR (MDRD) Non-Af 126 BUN/Creatinine Ratio 19.4 Glucose 91 Calcium 8.7 Magnesium Microbiology 09/21/18 16:15 Stool C. difficile DNA Amplification - Final Clinical Impression(s) from Imaging Studies KUB X-Ray 09/21/18 10:00 IMPRESSION: Mildly dilated small bowel loops in the upper mid abdomen with a small amount of gas seen in the colon. Early small bowel obstruction should be ruled out. Follow-up is recommended. Electronically Signed: Cesar Liriano MD at 14:08 EST Tel [phone], Service support , Medical Necessity - Tobacco Use Smoking Status: Never smoker Tobacco Use: Chew Assessment/Plan All Active Problems Abnormal LFTs (Acute) Alcohol withdrawal (Acute) RECOMMENDATIONS: 1. Continue Seroquel dosing 2. Wean Precedex as tolerated. 3. Continue p.o. vancomycin 4. Wean off Precedex through the day 5. Increase activity as tolerated 6. Continue Lovenox and Pepcid for prophylaxis IMPRESSIONS: 1. Acute respiratory failure RESOLVED > patient has been stable on room air without complication. Patient does have intermittent tachypnea associated with fever, but otherwise has been doing well. 2. Acute alcohol withdrawal Continue current supportive measures as noted above. Patient has been placed on the CIWA protocol. Patient has had scores ranging from 2-16. Patient has had issues with confusion. Will attempt to wean off the Precedex. Patient likely can leave the intensive care unit if Precedex is discontinued. 3. Acute C. difficile Unclear etiology at this time. Patient has had episodes of confusion earlier in the hospitalization with wandering of the halls. Patient is on appropriate therapy now and appears to be responding appropriately with decreased bowel movements. This may be leading to some of his confusion. 4. Personal history of tobacco dependence/hypertension Complicates care, management, recovery and prognosis. Continue nicotine replacement therapy as ordered. Code Visit Inpatient E&M: 31048 Subs Hosp L3
--- NOTE | 2018-09-22 09:02 | PN_ITS ---
Subjective: Chief complaint: Follow-up after admission for acute severe alcohol withdrawal/delirium tremens and acute C. difficile colitis. Patient seen and examined. No acute events overnight. Yesterday, he had quite a few loose bowel movements, C. difficile serology done and it came back positive for C. difficile colitis. Today, patient looked more jittery, anxious and depressed as compared to yesterday. He remains on IV Precedex drip. He is slightly tachypneic, other vital signs are stable, pulse ox is maintained on room air. - Physical Exam General: Alert, Oriented x3, Cooperative, - - Restless, anxious. HEENT: Atraumatic, PERRLA, EOMI, Normocephalic Oral: Moist Mucosa, No Gingival or Mucosal Lesions/ Ulcerations Neck: Supple, No JVD, Negative Carotid Bruits, Trachea Midline, Thyroid Normal Size and Texture Lungs: Clear to auscultation, No rhonchi, No wheeze, No rales, Diminished Cardiovascular: Regular rate, Regular Rhythm, Normal S1, Normal S2, PMI Normal Abdomen: Bowel Sounds Present, Soft, Non Tender, Non-Distended, No Hepato- splenomegaly Extremities: No clubbing, No cyanosis, No edema Skin: No rashes, No breakdown Lymphatic: No Cervical, Supraclavicular, or Inguinal Adenopathy Neurological: Cranial nerves II-XII grossly intact, Motor Exam 5/5 strength throughout Psych/Mental Status: Anxious, Restless, Alert and oriented to time, place, person, mood and affect Vital Signs Temp Pulse Resp BP Pulse Ox 97.8 F 84 26 H 118/79 96 09/22/18 08:00 09/22/18 08:00 09/22/18 08:00 09/22/18 08:00 09/22/18 08:00 Oxygen Flow Rate (L/min) 2 Oxygen Delivery Method Room Air Weight: 185 lb 6.54 oz Body Mass Index (BMI) 25.5 Intake and Output for Last 24 Hours 09/20/18 09/21/18 09/22/18 23:59 23:59 23:59 Intake Total 2841.9 / 2841.9 2284.9 / 2284.9 776 / 776 Output Total 625 / 625 675 / 675 225 / 225 Balance 2216.9 / 2216.9 1609.9 / 1609.9 551 / 551 Microbiology Past 72 Hours 09/21/18 16:15 C. difficile DNA Amplification - Final Stool Laboratory Tests Past 24 Hrs 09/22/18 04:20 Sodium 140 Potassium 3.6 Chloride 109 H Carbon Dioxide 21.0 Anion Gap 10 BUN 14 Creatinine 0.72 Estim Creat Clear Calc 140.90 Est GFR (MDRD) Af Amer 153 Est GFR (MDRD) Non-Af 126 BUN/Creatinine Ratio 19.4 Glucose 91 Calcium 8.7 Medical Necessity - Tobacco Use Smoking Status: Never smoker Tobacco Use: Chew Assessment/Plan All Active Problems Abnormal LFTs (Acute) Alcohol withdrawal (Acute) This is a 43 years old male patient admitted for acute alcohol withdrawal for medical stabilization and his hospital course complicated by severe agitation and delirium tremens that required sedation and mechanical ventilation. #1 acute alcohol withdrawal/delirium tremens: Today, patient is more anxious and restless, jittery. Remained on IV Precedex drip. Apart from mild tachypnea, other vitals are stable, pulse ox is maintained on room air. He was extubated yesterday. He is on folic acid and thiamine as well as multivitamins, as needed Ativan, Librium, methocarbamol, Imodium, Seroquel and Zofran. Plan to continue same treatment, wean off Precedex as tolerated. #2 acute C. difficile colitis: Stool came back positive for toxigenic C. difficile DNA. Started on oral vancomycin. He is complaining of diarrhea and abdominal cramps. He has been afebrile. #2 acute respiratory failure: Status post extubation, resolved. Respiratory status stabilized, pulse ox is maintained on room air. Plan as above. #3 elevated LFT: This is likely because of chronic liver disease secondary to alcohol abuse. #4 history of paroxysmal SVT: Status post ablation. He is in sinus rhythm, rate is stable. #5 tobacco abuse: Nicotine polacrilex. #6 DVT prophylaxis: Subcu Lovenox. This note was generated with [employer] dictation software. It may contain incorrect words, spelling, and punctuation that were not noted in checking the note before signing. Code Visit Inpatient E&M: 19310 Subs Hosp L3
[2018-09-22] MEDS: QUEtiapine 100 MG Tablet 150 MG PO ×2 (10:12→21:46)
[2018-09-22] MEDS: Famotidine 20 MG Tablet PO ×2 (10:13→21:46)
[2018-09-22] MEDS: Folic Acid 1 MG Tablet PO (10:13)
[2018-09-22] MEDS: Thiamine Hydrochloride 100 MG Tablet PO (10:14)
[2018-09-22] MEDS: Multivitamins,Therapeutic Tablet 1 TABLET PO (10:14)
--- NOTE | 2018-09-22 10:33 | CASEMGMT ---
Social Work: Attended ICU rounds. SW to continue to follow to assist with psychosocial concerns as needed. HARVEY Friedman
[2018-09-22] MEDS: 0.9% NaCl Peripheral Flush Adult/Peds IV ×2 (19:46→21:44)
[2018-09-23] VITALS (38 sets, daily range): BP systolic 105–162; BP diastolic 45–125; PULSE 95–152; RESP 19–33; TEMP 37–38.4; O2SAT 92–99
[2018-09-23] MEDS: LORazepam 2 MG/ML Syringe IV ×6 (01:02→06:18)
[2018-09-23] MEDS: 0.9% NaCl Peripheral Flush Adult/Peds IV ×7 (01:02→13:15)
[2018-09-23] MEDS: CHLORHEXIDINE GLUC 2% CLOTH 1 EACH TOWELETTE TOPICAL (03:27)
[2018-09-23 05:16] LABS: Anion Gap 13 (5-15); BUN 8 mg/dL (7-18); BUN/Creat Ratio 12.5 RATIO (10-20); Calcium,Total 9.2 mg/dL (8.5-10.1); Chloride 109 mmol/L (98-107); Creatinine, Serum 0.64 mg/dL (0.70-1.30); EST Glomerular Filtration Rate 144 mL/min (>60); Est Glom Filt Rate - Afr Amer 175 mL/min (>60); Estimated Creatinine Clearance 158.51 ml/min; Glucose 81 mg/dL (74-106); Potassium 3.5 mmol/L (3.5-5.1); Sodium Level 143 mmol/L (136-145)
[2018-09-23] MEDS: Enoxaparin 40 MG/0.4 ML Syringe SC (05:21)
--- NOTE | 2018-09-23 06:26 | EKG12_ITS ---
Test Reason : QT CHANGES Blood Pressure : / mmHG Vent. Rate : 111 BPM Atrial Rate : 111 BPM P-R Int : 142 ms QRS Dur : 078 ms QT Int : 342 ms P-R-T Axes : 029 030 015 degrees QTc Int : 465 ms Sinus tachycardia Nonspecific ST segment abnormality Confirmed by LIDIA MOON, ALFRED ([id number]), photo editor CHI GOMEZ ([id number]) on 09/29/2018 3:54:22 PM Referred By: Alejandro Cheatham Confirmed By:ALFRED MURILLO MD
[2018-09-23] MEDS: Folic Acid 1 MG Tablet PO (07:52)
[2018-09-23] MEDS: Thiamine Hydrochloride 100 MG Tablet PO (07:52)
[2018-09-23] MEDS: Multivitamins,Therapeutic Tablet 1 TABLET PO (07:52)
[2018-09-23] MEDS: Famotidine 20 MG Tablet PO ×2 (07:53→21:01)
[2018-09-23] MEDS: LORazepam 1 MG Tablet 2 MG PO ×2 (07:53→20:07)
[2018-09-23] MEDS: QUEtiapine 100 MG Tablet 200 MG PO ×2 (07:53→21:01)
--- NOTE | 2018-09-23 08:51 | PN_ITS ---
Subjective: Patient did okay overnight. Patient continues to be very impulsive and requires frequent reorientation. Patient with only one watery bowel movement overnight. Patient has been taken off of Precedex therapy, but has received multiple doses of Ativan. Objective: EKG performed this morning shows acceptable QTC. General: Alert, No apparent distress, Confused, Disoriented, - - Slight tremor noted. HEENT: Atraumatic, PERRLA, EOMI, Normocephalic, - - No scleral icterus or injection noted Oral: Moist Mucosa, No Gingival or Mucosal Lesions/ Ulcerations Neck: Supple, No JVD, No Nodes, Trachea Midline Lungs: Clear to auscultation, Normal air movement, No rhonchi, No wheeze, No rales, - Cardiovascular: Normal S1, Normal S2, No murmurs, No rub noted, No Gallop, Tachycardic Abdomen: Bowel Sounds Present - Metric expansion. No dullness to percussion., Soft, Non Tender, Non-Distended Extremities: No clubbing, No cyanosis, No edema Skin: No rashes, - - Some breakdown in the gluteal fold Musculoskeletal: No Tenderness to Palpation of Joints or Extremities Lymphatic: No Cervical, Supraclavicular, or Inguinal Adenopathy Neurological: Cranial nerves II-XII grossly intact, Neuro grossly intact, Motor Exam 5/5 strength throughout Psych/Mental Status: Anxious, Impulsive, Restless Vital Signs Temp Pulse Resp BP Pulse Ox 37.6 C H 118 H 21 H 153/108 H 97 09/23/18 08:00 09/23/18 08:00 09/23/18 08:00 09/23/18 08:00 09/23/18 08:00 Oxygen Flow Rate (L/min) 2 Oxygen Delivery Method Room Air Weight: 82.2 kg Body Mass Index (BMI) 25.5 Intake and Output for Last 24 Hours 09/21/18 09/22/18 09/23/18 23:59 23:59 23:59 Intake Total 2284.9 / 2284.9 857 / 857 98 / 98 Output Total 675 / 675 225 / 225 Balance 1609.9 / 1609.9 632 / 632 98 / 98 Labs (Last 48 Hours) 09/21/18 09/22/18 09/23/18 16:15 04:20 04:30 Sodium 140 143 Potassium 3.6 3.5 Chloride 109 H 109 H Carbon Dioxide 21.0 21.0 Anion Gap 10 13 BUN 14 8 Creatinine 0.72 0.64 L Estim Creat Clear Calc 140.90 158.51 Est GFR (MDRD) Af Amer 153 175 Est GFR (MDRD) Non-Af 126 144 BUN/Creatinine Ratio 19.4 12.5 Glucose 91 81 Calcium 8.7 9.2 Miscellaneous Test Pending Microbiology 09/21/18 16:15 Stool C. difficile DNA Amplification - Final Medical Necessity - Tobacco Use Smoking Status: Never smoker Tobacco Use: Chew Assessment/Plan All Active Problems Abnormal LFTs (Acute) Alcohol withdrawal (Acute) RECOMMENDATIONS: 1. Increase Seroquel dosing 2. Attempt to limit Ativan 3. Continue p.o. vancomycin 4. Wean off Precedex through the day 5. Increase activity as tolerated 6. Continue Lovenox and Pepcid for prophylaxis IMPRESSIONS: 1. Acute respiratory failure RESOLVED > patient has been stable on room air without complication. Patient does have intermittent tachypnea associated with fever, but otherwise has been doing well. 2. Acute alcohol withdrawal Unclear if patient's current hallucinations and tremor are related to alcohol withdrawal versus possible underlying delirium versus schizophrenia. Patient is actively hallucinating. Patient has received some Ativan. Will attempt to increase Seroquel therapy given normal QTC. Hopefully this will dec rease the need for Ativan therapy. 3. Acute C. difficile Unclear etiology at this time. Patient has had episodes of confusion earlier in the hospitalization with wandering of the halls. Patient is on appropriate therapy now and appears to be responding appropriately with decreased bowel movements. This may be leading to some of his confusion. Does have some mild irritation in the gluteal folds. Barrier cream will be added. 4. Personal history of tobacco dependence/hypertension Complicates care, management, recovery and prognosis. Continue nicotine replacement therapy as ordered. Code Visit Inpatient E&M: 69111 Subs Hosp L3
--- NOTE | 2018-09-23 09:21 | PN_ITS ---
Subjective: Chief complaint: Follow-up after admission for acute severe alcohol withdrawal/delirium tremens and acute C. difficile colitis. Patient seen and examined he is not uterine segment. Patient remains anxious, shaky and restless, impulsive. Reportedly, he has 1 loose bowel movement overnight. This morning, he is taken off Precedex drip but he received multiple doses of IV Ativan. He is tachycardic, blood pressure elevated, he is afebrile - Physical Exam General: Alert, Cooperative, - - Restless, shaky, impulsive. HEENT: Atraumatic, PERRLA, EOMI, Normocephalic Oral: Moist Mucosa, No Gingival or Mucosal Lesions/ Ulcerations Neck: Supple, No JVD, Negative Carotid Bruits, Trachea Midline, Thyroid Normal Size and Texture Lungs: Clear to auscultation, No rhonchi, No wheeze, No rales, Diminished Cardiovascular: Regular rate, Regular Rhythm, Normal S1, Normal S2, PMI Normal, Tachycardic Abdomen: Bowel Sounds Present, Soft, Non Tender, Non-Distended, No Hepato- splenomegaly Extremities: No clubbing, No cyanosis, No edema Skin: No rashes, No breakdown Lymphatic: No Cervical, Supraclavicular, or Inguinal Adenopathy Neurological: Cranial nerves II-XII grossly intact, Neuro grossly intact, Motor Exam 5/5 strength throughout Psych/Mental Status: Agitated, Anxious, Impulsive, Restless Vital Signs Temp Pulse Resp BP Pulse Ox 99.6 F H 118 H 21 H 153/108 H 97 09/23/18 08:00 09/23/18 08:00 09/23/18 08:00 09/23/18 08:00 09/23/18 08:00 Oxygen Flow Rate (L/min) 2 Oxygen Delivery Method Room Air Weight: 181 lb 3.52 oz Body Mass Index (BMI) 25.5 Intake and Output for Last 24 Hours 09/21/18 09/22/18 09/23/18 23:59 23:59 23:59 Intake Total 2284.9 / 2284.9 857 / 857 98 / 98 Output Total 675 / 675 225 / 225 Balance 1609.9 / 1609.9 632 / 632 98 / 98 Microbiology Past 72 Hours 09/21/18 16:15 C. difficile DNA Amplification - Final Stool Laboratory Tests Past 24 Hrs 09/21/18 09/23/18 16:15 04:30 Sodium 143 Potassium 3.5 Chloride 109 H Carbon Dioxide 21.0 Anion Gap 13 BUN 8 Creatinine 0.64 L Estim Creat Clear Calc 158.51 Est GFR (MDRD) Af Amer 175 Est GFR (MDRD) Non-Af 144 BUN/Creatinine Ratio 12.5 Glucose 81 Calcium 9.2 Miscellaneous Test Pending Medical Necessity - Tobacco Use Smoking Status: Never smoker Tobacco Use: Chew Assessment/Plan All Active Problems Abnormal LFTs (Acute) Alcohol withdrawal (Acute) This is a 43 years old male patient admitted for acute alcohol withdrawal for medical stabilization and his hospital course complicated by severe agitation and delirium tremens that required sedation and mechanical ventilation, status post extubation. He developed diarrhea and he was found to have acute C. difficile colitis. #1 acute alcohol withdrawal/delirium tremens: Again, patient remains anxious, impulsive and shaky. He is tachycardic and hypertensive. He is off IV Precedex drip but has been receiving IV Ativan. He is on folic acid and thiamine as well as multivitamins, as needed Ativan, Librium, methocarbamol, Imodium, Seroquel and Zofran. Started on metoprolol for tachycardia and dose of Seroquel increased. Plan to continue same treatment, wean off Precedex as tolerated. #2 acute C. difficile colitis: He is on oral vancomycin. He had one loose bowel movement overnight. Denies abdominal pain, nausea vomiting. He has been afebrile. Plan to continue same treatment. #2 acute respiratory failure: Status post extubation, resolved. Respiratory status stabilized, pulse ox is maintained on room air. Plan as above. #3 elevated LFT: This is likely because of chronic liver disease secondary to alcohol abuse. #4 history of paroxysmal SVT: Status post ablation. He is in sinus tachycardia, started on metoprolol. #5 tobacco abuse: Nicotine polacrilex. #6 DVT prophylaxis: Subcu Lovenox. This note was generated with [employer] dictation software. It may contain incorrect words, spelling, and punctuation that were not noted in checking the note before signing. Code Visit Inpatient E&M: 85126 Subs Hosp L3
[2018-09-23] MEDS: Metoprolol Tartrate 25 MG Tablet PO (09:57)
[2018-09-23] MEDS: Ondansetron ODT 4 MG Tablet PO (10:32)
--- NOTE | 2018-09-23 10:38 | CASEMGMT ---
RN spoke w/pt's father via telephone, he states that pt has no psych history that he is aware of. SW reviewed notes from pt's last admission in January 2018. At that time the physician asked pt if he was schizophrenic or bipolar, pt denied. Pt was on Seroquel however and did not know why. Pt did state at that time he had anxiety, and physician stated pt may also be depressed. On the last admission pt went through visual and auditory hallucinations as well. SW spoke w/Alia Goodwin from [facility], she is also unaware of any psychiatric diagnoses for pt. SW will continue to follow and is available for any assist if needed when pt is ready for discharge, though [facility] did have a discharge plan set up for pt prior to his going to ICU. If still appropriate, [facility] will review discharge plan w/pt when appropriate. HARVEY Burroughs, [employer]
[2018-09-23] MEDS: Metoprolol Tartrate 5 MG/5 ML Vial 2.5 MG IV (13:12)
[2018-09-23] MEDS: Ibuprofen 600 MG Tablet PO (20:06)
[2018-09-23] MEDS: Metoprolol Tartrate 50 MG Tablet PO (21:01)
[2018-09-24] VITALS (31 sets, daily range): BP systolic 97–153; BP diastolic 72–118; PULSE 96–126; RESP 15–40; TEMP 36.5–38; O2SAT 89–96
[2018-09-24 05:06] LABS: Ammonia < 10.0 umol/L (11-32)
[2018-09-24 05:20] LABS: Absolute Lymphocyte Count 1.22 X10^3/ul (0.83-4.51); Absolute Neutrophil Count 7.1 X10^3/uL (2.0-7.7); Basophil# 0.03 X10^3/uL; Basophil% 0.3 % (0-1); Eosinophil# 0.15 X10^3/uL; Eosinophils% 1.3 % (0-5); Hematocrit 39.9 % (40-54); Hemoglobin 13.8 g/dl (13.0-16.5); Lymphocyte # 1.22 X10^3/ul (4.0); Lymphocyte % 10.8 % (19-41); Mean Corp Hgb Conc 34.6 g/gl (32-36); Mean Corpuscular Volume 89.7 fL (80-94); Mean Platelet Vol. 9.6 fl (6.2-12.0); Monocyte# 2.75 X10^3/uL; Monocyte% 24.3 % (0-10); Neutrophil # 7.12 X10^3/uL (2.7-7.7); Neutrophil % 62.7 % (47-70); Platelet Count 385 K/mm3 (150-450); RBC Distribution Width SD 42.9 fl (35.1-43.9); Red Blood Count 4.45 M/mm3 (4.6-6.2); White Blood Count 11.3 K/mm3 (4.4-11.0)
[2018-09-24 05:21] LABS: Differential Indicated SCAN CRITERIA MET; POSITIVE COUNT NO; POSITIVE DIFFERENTIAL YES; POSITIVE MORPHOLOGY NO
[2018-09-24 05:22] LABS: BUN 13 mg/dL (7-18); Creatinine, Serum 0.83 mg/dL (0.70-1.30); EST Glomerular Filtration Rate 107 mL/min (>60); Estimated Creatinine Clearance 122.22 ml/min; Glucose 82 mg/dL (74-106)
[2018-09-24 05:23] LABS: Anion Gap 10 (5-15); BUN/Creat Ratio 15.6 RATIO (10-20); Calcium,Total 9.4 mg/dL (8.5-10.1); Chloride 109 mmol/L (98-107); Est Glom Filt Rate - Afr Amer 129 mL/min (>60); Potassium 3.2 mmol/L (3.5-5.1); Sodium Level 144 mmol/L (136-145)
[2018-09-24 05:52] LABS: Toxic Granulation RARE
[2018-09-24] MEDS: Ibuprofen 600 MG Tablet PO (05:52)
[2018-09-24 05:53] LABS: Vacuolated Cells 1+
[2018-09-24] MEDS: Enoxaparin 40 MG/0.4 ML Syringe SC (05:53)
--- NOTE | 2018-09-24 06:50 | PCM.PN.INT ---
Subjective: Patient did well overnight with the addition of a sitter. Patient continues to be very impulsive, but is tolerating room air. Some tachycardia was noted. Fever has improved. No bowel movements noted overnight. General: Alert, No apparent distress, Confused, Disoriented, - - Moving around the bed, but no dyspnea. HEENT: Atraumatic, PERRLA, EOMI, Normocephalic, - - No scleral icterus or injection noted. Oral: Moist Mucosa, No Gingival or Mucosal Lesions/ Ulcerations Neck: Supple, No JVD, No Nodes, Trachea Midline Lungs: Clear to auscultation, Normal air movement, No rhonchi, No wheeze, No rales, - - Symmetric expansion. No dullness to percussion. Cardiovascular: Normal S1, Normal S2, No murmurs, No rub noted, No Gallop, Tachycardic Abdomen: Bowel Sounds Present, Soft, Non Tender, Non-Distended Extremities: No clubbing, No cyanosis, No edema, Capillary Refill Less than 3 Seconds Skin: - - No significant change compared to previous Musculoskeletal: No Tenderness to Palpation of Joints or Extremities Lymphatic: No Cervical, Supraclavicular, or Inguinal Adenopathy Neurological: Cranial nerves II-XII grossly intact, Neuro grossly intact, Motor Exam 5/5 strength throughout Psych/Mental Status: Anxious, Impulsive, Restless Vital Signs Temp Pulse Resp BP Pulse Ox 37.7 C H 106 H 24 H 148/95 H 93 09/24/18 06:00 09/24/18 06:00 09/24/18 06:00 09/24/18 06:00 09/24/18 06:00 Oxygen Flow Rate (L/min) 2 Oxygen Delivery Method Room Air Weight: 80.1 kg Body Mass Index (BMI) 25.5 Intake and Output for Last 24 Hours 09/22/18 09/23/18 09/24/18 23:59 23:59 23:59 Intake Total 857 / 857 98 / 98 360 / 360 Output Total 225 / 225 300 / 300 Balance 632 / 632 98 / 98 60 / 60 Labs (Last 48 Hours) 09/21/18 09/23/18 09/24/18 16:15 04:30 04:30 WBC RBC Hgb Hct MCV MCH MCHC RDW RDW Differential Plt Count MPV Immature Gran % (Auto) Neut % (Auto) Lymph % (Auto) [place] % (Auto) Eos % (Auto) Baso % (Auto) Absolute Neuts (auto) Absolute Lymphs (auto) Total Counted Differential Comment Diff Path Review Toxic Granulation Sodium 143 Potassium 3.5 Chloride 109 H Carbon Dioxide 21.0 Anion Gap 13 BUN 8 Creatinine 0.64 L Estim Creat Clear Calc 158.51 Est GFR (MDRD) Af Amer 175 Est GFR (MDRD) Non-Af 144 BUN/Creatinine Ratio 12.5 Glucose 81 Calcium 9.2 Ammonia < 10.0 L Miscellaneous Test Pending 09/24/18 09/24/18 05:04 05:04 WBC 11.3 H RBC 4.45 L Hgb 13.8 Hct 39.9 L MCV 89.7 MCH 31.0 MCHC 34.6 RDW 13.0 RDW Differential 42.9 Plt Count 385 MPV 9.6 Immature Gran % (Auto) 0.600 Neut % (Auto) 62.7 Lymph % (Auto) 10.8 L [place] % (Auto) 24.3 H Eos % (Auto) 1.3 Baso % (Auto) 0.3 Absolute Neuts (auto) 7.1 Absolute Lymphs (auto) 1.22 Total Counted Not Reportable Differential Comment 1+ Diff Path Review May foll Toxic Granulation RARE Sodium 144 Potassium 3.2 L Chloride 109 H Carbon Dioxide 25.0 Anion Gap 10 BUN 13 Creatinine 0.83 Estim Creat Clear Calc 122.22 Est GFR (MDRD) Af Amer 129 Est GFR (MDRD) Non-Af 107 BUN/Creatinine Ratio 15.6 Glucose 82 Calcium 9.4 Ammonia Miscellaneous Test Medical Necessity - Tobacco Use Smoking Status: Never smoker Tobacco Use: Chew Assessment/Plan All Active Problems Abnormal LFTs (Acute) Alcohol withdrawal (Acute) RECOMMENDATIONS: 1. Continue Seroquel 2. Discontinue Ativan 3. Continue p.o. vancomycin 4. Continue bedside sitter 5. Increase activity as tolerated 6. Continue Lovenox and Pepcid for prophylaxis IMPRESSIONS: 1. Acute respiratory failure RESOLVED > patient has been stable on room air without complication. Patient does have intermittent tachypnea associated with fever, but otherwise has been doing well. 2. Acute alcohol withdrawal Unclear if patient's current hallucinations and tremor are related to alcohol withdrawal versus possible underlying delirium versus schizophrenia. Patient is actively hallucinating yesterday. Will attempt to limit Ativan therapy as this would add to delirium. Patient is significantly removed from withdrawal of alcohol. Continue with Seroquel therapy. 3. Acute C. difficile Responding well to therapy. Unclear etiology at this time. Patient has had episodes of confusion earlier in the hospitalization with wandering of the halls. Patient is on appropriate therapy now and appears to be responding appropriately with decreased bowel movements. This may be leading to some of his confusion. Does have some mild irritation in the gluteal folds. Barrier cream will be added. 4. Personal history of tobacco dependence/hypertension Complicates care, management, recovery and prognosis. Continue nicotine replacement therapy as ordered. Code Visit Inpatient E&M: 88774 Subs Hosp L2
[2018-09-24] MEDS: Multivitamins,Therapeutic Tablet 1 TABLET PO (07:48)
[2018-09-24] MEDS: Folic Acid 1 MG Tablet PO (07:49)
[2018-09-24] MEDS: Metoprolol Tartrate 50 MG Tablet PO ×2 (07:49→21:15)
[2018-09-24] MEDS: Famotidine 20 MG Tablet PO ×2 (07:49→20:52)
[2018-09-24] MEDS: QUEtiapine 100 MG Tablet 200 MG PO ×2 (07:49→20:52)
[2018-09-24] MEDS: Thiamine Hydrochloride 100 MG Tablet PO (07:49)
--- NOTE | 2018-09-24 09:01 | PCM.PROGNOTE ---
Subjective: Chief complaint: Follow-up after admission for acute severe alcohol withdrawal/delirium tremens and acute C. difficile colitis. Patient seen and examined today. No acute events overnight. Remained impulsive, restless. He is off Precedex drip and last dose of Ativan was 7 PM last night. No reported diarrhea since yesterday. He had a spike of fever yesterday evening of 101.1 Fahrenheit. Slightly tachycardic, blood pressure pulse ox are stable. - Physical Exam General: Alert, No apparent distress, Disoriented, - - arousable, impulsive. HEENT: Atraumatic, PERRLA, EOMI, Normocephalic Oral: Moist Mucosa, No Gingival or Mucosal Lesions/ Ulcerations Neck: Supple, No JVD, Negative Carotid Bruits, Trachea Midline, Thyroid Normal Size and Texture Lungs: Clear to auscultation, No wheeze, No rales, Diminished, Rhonchi Cardiovascular: Regular rate, Regular Rhythm, Normal S1, Normal S2, No murmurs, PMI Normal, Tachycardic Abdomen: Bowel Sounds Present, Soft, Non Tender, Non-Distended, No Hepato-splenomegaly Extremities: No clubbing, No cyanosis, No edema Skin: No rashes, No breakdown Lymphatic: No Cervical, Supraclavicular, or Inguinal Adenopathy Neurological: Cranial nerves II-XII grossly intact, Neuro grossly intact Psych/Mental Status: Anxious, Restless Vital Signs Temp Pulse Resp BP Pulse Ox 98.6 F 108 H 15 139/100 H 93 09/24/18 08:00 09/24/18 08:00 09/24/18 08:00 09/24/18 08:00 09/24/18 08:00 Oxygen Flow Rate (L/min) 2 Oxygen Delivery Method Room Air Weight: 176 lb 9.444 oz Body Mass Index (BMI) 25.5 Intake and Output for Last 24 Hours 09/22/18 09/23/18 09/24/18 23:59 23:59 23:59 Intake Total 857 / 857 98 / 98 360 / 360 Output Total 225 / 225 325 / 325 Balance 632 / 632 98 / 98 35 / 35 Microbiology Past 72 Hours 09/21/18 16:15 C. difficile DNA Amplification - Final Stool Laboratory Tests Past 24 Hrs 09/24/18 09/24/18 09/24/18 04:30 05:04 05:04 WBC 11.3 H RBC 4.45 L Hgb 13.8 Hct 39.9 L MCV 89.7 MCH 31.0 MCHC 34.6 RDW 13.0 RDW Differential 42.9 Plt Count 385 MPV 9.6 Immature Gran % (Auto) 0.600 Neut % (Auto) 62.7 Lymph % (Auto) 10.8 L [place] % (Auto) 24.3 H Eos % (Auto) 1.3 Baso % (Auto) 0.3 Absolute Neuts (auto) 7.1 Absolute Lymphs (auto) 1.22 Total Counted Not Reportable Differential Comment 1+ Diff Path Review May foll Toxic Granulation RARE Sodium 144 Potassium 3.2 L Chloride 109 H Carbon Dioxide 25.0 Anion Gap 10 BUN 13 Creatinine 0.83 Estim Creat Clear Calc 122.22 Est GFR (MDRD) Af Amer 129 Est GFR (MDRD) Non-Af 107 BUN/Creatinine Ratio 15.6 Glucose 82 Calcium 9.4 Ammonia < 10.0 L Medical Necessity - Tobacco Use Smoking Status: Never smoker Tobacco Use: Chew Assessment/Plan All Active Problems Abnormal LFTs (Acute) Alcohol withdrawal (Acute) This is a 43 years old male patient admitted for acute alcohol withdrawal for medical stabilization and his hospital course complicated by severe agitation and delirium tremens that required sedation and mechanical ventilation, status post extubation. He developed diarrhea and he was found to have acute C. difficile colitis. #1 acute alcohol withdrawal/delirium tremens: Patient remains impulsive and restless, lethargic occasionally. Still having slight tachycardia and he has had spike a fever yesterday. He is off Precedex drip and IV Ativan since yesterday 7 PM. He is on folic acid and thiamine as well as multivitamins, Librium, methocarbamol, Imodium, Seroquel and Zofran. Plan to continue same treatment, chest x-ray because of fever. #2 acute C. difficile colitis: He is on oral vancomycin. He had one loose bowel movement overnight. Denies abdominal pain, nausea vomiting. He has been afebrile. Plan to continue same treatment. #2 acute respiratory failure: Status post extubation, resolved. Respiratory status stabilized, pulse ox is maintained on room air. Plan as above. #3 elevated LFT: This is likely because of chronic liver disease secondary to alcohol abuse. #4 history of paroxysmal SVT: Status post ablation. He is in sinus tachycardia, started on metoprolol. #5 tobacco abuse: Nicotine polacrilex. #6 DVT prophylaxis: Subcu Lovenox. This note was generated with [employer] dictation software. It may contain incorrect words, spelling, and punctuation that were not noted in checking the note before signing. Code Visit Inpatient E&M: 03708 Subs Hosp L2
--- NOTE | 2018-09-24 09:23 | RAD_ITS ---
STUDY: X-RAY CHEST REASON FOR EXAM: Male, 43 years old. Fever. TECHNIQUE: Single AP portable view of the chest. COMPARISON: Comparison is made with prior study dated September 19, 2018. FINDINGS: EKG electrodes are seen. The endotracheal tube and oral enteric tube have been removed. Mild degree of increased markings in the left perihilar region. This may represent an early infiltrate. Follow-up is recommended. There is no demonstrated pleural abnormality. Normal size heart. Normal mediastinum and baljeet. Normal visualized pulmonary arteries. Normal visualized aortic arch and descending thoracic aorta. Normal visualized thoracic spine. Normal visualized ribs, clavicles, and shoulders. There is no demonstrated abnormality of the visualized soft tissue structures of the upper abdomen. RAD/Chest 1 View (Portable) IMPRESSION: Increased markings in the left perihilar region. Follow-up is recommended. Electronically Signed: Cesar Liriano MD at 12:43 EST Tel [phone], Service support ,
[2018-09-24 13:05] LABS: Pathologist Review Reviewed
--- NOTE | 2018-09-24 14:04 | CASEMGMT ---
YOLIS spoke with nurse from Dr. Mcclendon's office, Pt current PCP. Inquired of mental health diagnosis and use of seroquel. PCP nurse stating pt does not have a mental health diagnosis and PCP records do not indicate pt is taking Seroquel. The last PCP visit was on 08/06/18. RN notified. MARIHCUY Whitt
[2018-09-24] MEDS: CHLORHEXIDINE GLUC 2% CLOTH 1 EACH TOWELETTE TOPICAL (16:54)
[2018-09-24] MEDS: 0.9% NaCl Peripheral Flush Adult/Peds IV (18:04)
[2018-09-25] VITALS (29 sets, daily range): BP systolic 126–169; BP diastolic 80–117; PULSE 85–126; RESP 16–35; TEMP 36.8–37.6; O2SAT 91–97
[2018-09-25] MEDS: Ziprasidone IM 20 MG/ML VIAL 10 MG IM (01:45)
--- NOTE | 2018-09-25 02:43 | NURSING ---
This RN relieved sitter so that he could take a break. Patient was pulling at his attends and saying he had to urinate. Attempted to assist patient with urinal. Patient became agitated and attempted to hit this RN. Patient was able to be de-escalated verbally. Patient then became more restless and attempted to get out of bed. PROMOS EXECUTIVE PRODUCER at the bedside with this RN. Attempted to re-orient and verbally de-escalate patient again by explaining that the patient is in the hospital due to being ill and that it was in the middle of the night. Patient states that he knows his father is outside of the room and wanted to go to him. It was explained to the patient that his father went home for the night and would be back in the morning. Sitter returned to the bedside and attempted to verbally de-escalate the patient as well. Patient became combative and attempting to hit and kick staff members. Smiley zuniga called at [phone]. 7 staff members at the bedside to maintain patient safety. Dr. Martinez notified and updated on patient condition by nursing telephone solicitor supervisor, Rosita Smith RN and order received for Geodon 10mg IM x1. Medication given by Mitra Stark RN in right thigh. Patient became agitated and attempting to hit, kick, and bite staff members directly after the administration of Geodon. Once patient was calm staff slowly started to leave the bedside and the lights in the room were turned down for a calming effect. Patient remained restless but not combative until 0215 when patient became combative with staff members again. 3 staff members present at bedside to maintain patient safety. Patient effectively verbally de-escalated. At this time patient is drowsy with restless periods. Sitter remains at the bedside.
[2018-09-25] MEDS: Enoxaparin 40 MG/0.4 ML Syringe SC (04:50)
[2018-09-25] MEDS: Haloperidol Lactate 5 MG/ML Vial IV (06:30)
[2018-09-25] MEDS: 0.9% NaCl Peripheral Flush Adult/Peds IV ×2 (06:31→18:28)
[2018-09-25 06:38] LABS: Anion Gap 12 (5-15); BUN 10 mg/dL (7-18); BUN/Creat Ratio 14.6 RATIO (10-20); Calcium,Total 9.2 mg/dL (8.5-10.1); Chloride 108 mmol/L (98-107); Creatinine, Serum 0.69 mg/dL (0.70-1.30); EST Glomerular Filtration Rate 133 mL/min (>60); Est Glom Filt Rate - Afr Amer 161 mL/min (>60); Estimated Creatinine Clearance 147.02 ml/min; Glucose 82 mg/dL (74-106); Potassium 3.1 mmol/L (3.5-5.1); Sodium Level 144 mmol/L (136-145)
--- NOTE | 2018-09-25 06:49 | PN_ITS ---
Subjective: Patient has remained hemodynamically stable. However, patient has been more agitated overnight. Code while it was called. Patient remains on room air. Patient did have some increased blood pressures, but this was thought to be secondary to agitation. Patient did refuse last dose of vancomycin. Patient has been asking for family at the bedside. General: Alert, Confused, Disoriented, - - Sitter at the bedside. Patient follows some commands briefly. HEENT: Atraumatic, PERRLA, EOMI, Normocephalic, - - Slight scleral injection without icterus Oral: Moist Mucosa, No Gingival or Mucosal Lesions/ Ulcerations Neck: Supple, No JVD, No Nodes, Trachea Midline Lungs: Clear to auscultation, Normal air movement, No rhonchi, No wheeze, No rales, - - Symmetric expansion. No dullness to percussion. Cardiovascular: Normal S1, Normal S2, No murmurs, No rub noted, No Gallop, Tachycardic Abdomen: Bowel Sounds Present, Soft, Non Tender, Non-Distended Extremities: No clubbing, No cyanosis, No edema, Capillary Refill Less than 3 Seconds Skin: No rashes, No breakdown Musculoskeletal: No Tenderness to Palpation of Joints or Extremities Lymphatic: No Cervical, Supraclavicular, or Inguinal Adenopathy Neurological: Cranial nerves II-XII grossly intact, Neuro grossly intact, Motor Exam 5/5 strength throughout Psych/Mental Status: Agitated, Anxious, Impulsive, Restless Vital Signs Temp Pulse Resp BP Pulse Ox 37.5 C H 114 H 29 H 157/107 H 94 09/25/18 04:00 09/25/18 06:00 09/25/18 06:00 09/25/18 06:00 09/25/18 06:00 Oxygen Flow Rate (L/min) 2 Oxygen Delivery Method Room Air Weight: 80.1 kg Body Mass Index (BMI) 25.5 Intake and Output for Last 24 Hours 09/23/18 09/24/18 09/25/18 23:59 23:59 23:59 Intake Total 98 / 98 1832 / 1832 1336 / 1336 Output Total 726 / 726 200 / 200 Balance 98 / 98 1106 / 1106 1136 / 1136 Labs (Last 48 Hours) 09/21/18 09/24/18 09/24/18 16:15 04:30 05:04 WBC RBC Hgb Hct MCV MCH MCHC RDW RDW Differential Plt Count MPV Immature Gran % (Auto) Neut % (Auto) Lymph % (Auto) [place] % (Auto) Eos % (Auto) Baso % (Auto) Absolute Neuts (auto) Absolute Lymphs (auto) Total Counted Differential Comment Diff Path Review Toxic Granulation Sodium 144 Potassium 3.2 L Chloride 109 H Carbon Dioxide 25.0 Anion Gap 10 BUN 13 Creatinine 0.83 Estim Creat Clear Calc 122.22 Est GFR (MDRD) Af Amer 129 Est GFR (MDRD) Non-Af 107 BUN/Creatinine Ratio 15.6 Glucose 82 Calcium 9.4 Ammonia < 10.0 L Miscellaneous Test Pending 09/24/18 09/25/18 09/25/18 05:04 06:15 06:15 WBC 11.3 H Pending RBC 4.45 L Pending Hgb 13.8 Pending Hct 39.9 L Pending MCV 89.7 Pending MCH 31.0 Pending MCHC 34.6 Pending RDW 13.0 Pending RDW Differential 42.9 Pending Plt Count 385 Pending MPV 9.6 Immature Gran % (Auto) 0.600 Neut % (Auto) 62.7 Pending Lymph % (Auto) 10.8 L [place] % (Auto) 24.3 H Eos % (Auto) 1.3 Baso % (Auto) 0.3 Absolute Neuts (auto) 7.1 Pending Absolute Lymphs (auto) 1.22 Total Counted Not Reportable Pending Differential Comment 1+ Diff Path Review Reviewed Toxic Granulation RARE Sodium 144 Potassium 3.1 L Chloride 108 H Carbon Dioxide 24.0 Anion Gap 12 BUN 10 Creatinine 0.69 L Estim Creat Clear Calc 147.02 Est GFR (MDRD) Af Amer 161 Est GFR (MDRD) Non-Af 133 BUN/Creatinine Ratio 14.6 Glucose 82 Calcium 9.2 Ammonia Miscellaneous Test Clinical Impression(s) from Imaging Studies Chest X-Ray 09/24/18 09:23 IMPRESSION: Increased markings in the left perihilar region. Follow-up is recommended. Electronically Signed: Cesar Liriano MD at 12:43 EST Tel [phone], Service support , Medical Necessity - Tobacco Use Smoking Status: Never smoker Tobacco Use: Chew Assessment/Plan All Active Problems Abnormal LFTs (Acute) Alcohol withdrawal (Acute) RECOMMENDATIONS: 1. Continue Seroquel 2. Potassium repletion 3. Continue p.o. vancomycin 4. Continue bedside sitter 5. Increase activity as tolerated 6. Continue Lovenox and Pepcid for prophylaxis IMPRESSIONS: 1. Acute respiratory failure RESOLVED > patient has been stable on room air without complication. Patient does have intermittent tachypnea associated with agitation, but otherwise has been doing well. 2. Acute alcohol withdrawal Unclear if patient's current hallucinations and tremor are related to alcohol withdrawal versus possible underlying delirium versus schizophrenia. Patient was actively hallucinating yesterday. Patient would likely benefit from psychiatric evaluation, but this service is not available here. Patient did receive Geodon overnight. Potassium will be repleted. Patient is significantly removed from withdrawal of alcohol. Continue with Seroquel therapy. 3. Acute C. difficile Responding well to therapy. Unclear etiology at this time. Patient has had episodes of confusion earlier in the hospitalization with wandering of the halls. Patient is on appropriate therapy now and appears to be responding appropriately with decreased bowel movements. This may be leading to some of his confusion. Does have some mild irritation in the gluteal folds. Barrier cream will be added. 4. Personal history of tobacco dependence/hypertension Complicates care, management, recovery and prognosis. Continue nicotine replacement therapy as ordered. Code Visit Inpatient E&M: 84019 [facility] Hosp L3
[2018-09-25 07:09] LABS: Absolute Lymphocyte Count 1.49 X10^3/ul (0.83-4.51); Absolute Neutrophil Count 5.7 X10^3/uL (2.0-7.7); Basophil% 1.1 % (0-1); Differential Indicated SCAN CRITERIA MET; Eosinophil# 0.35 X10^3/uL; Eosinophils% 3.7 % (0-5); Hematocrit 38.3 % (40-54); Hemoglobin 13.2 g/dl (13.0-16.5); Lymphocyte # 1.49 X10^3/ul (4.0); Lymphocyte % 15.8 % (19-41); Mean Corp Hgb Conc 34.5 g/gl (32-36); Mean Corpuscular Hgb 31.4 pg (27.0-32.0); Mean Corpuscular Volume 91.2 fL (80-94); Mean Platelet Vol. 9.8 fl (6.2-12.0); Monocyte# 1.59 X10^3/uL; Monocyte% 16.8 % (0-10); Neutrophil # 5.74 X10^3/uL (2.7-7.7); Neutrophil % 60.6 % (47-70); POSITIVE COUNT YES; POSITIVE DIFFERENTIAL YES; POSITIVE MORPHOLOGY YES; Platelet Count 368 K/mm3 (150-450); RBC Distribution Width CV 13.1 % (11.6-14.6); RBC Distribution Width SD 43.1 fl (35.1-43.9); White Blood Count 9.5 K/mm3 (4.4-11.0)
[2018-09-25] MEDS: hydrALAZINE 20 MG/ML Vial 10 MG IV ×2 (08:05→18:29)
[2018-09-25] MEDS: Multivitamins,Therapeutic Tablet 1 TABLET PO (08:06)
[2018-09-25] MEDS: Thiamine Hydrochloride 100 MG Tablet PO (08:06)
[2018-09-25] MEDS: Folic Acid 1 MG Tablet PO (08:06)
--- NOTE | 2018-09-25 08:55 | PCM.PROGNOTE ---
Subjective: Chief complaint: Follow-up after admission for acute severe alcohol withdrawal/delirium tremens and acute C. difficile colitis. Patient seen and examined. Overnight, patient was agitated and he was given Geodon. This morning, he was given a dose of hydrocodone. At this time, he is sleepy, lethargic but arousable, open eyes to verbal stimuli. He is tachycardic and hypertensive. He is afebrile, pulse ox is maintained on room air. - Physical Exam General: - - Sleepy, lethargic, arousable. HEENT: Atraumatic, PERRLA, EOMI, Normocephalic Oral: Moist Mucosa, No Gingival or Mucosal Lesions/ Ulcerations Neck: Supple, No JVD, Negative Carotid Bruits, Trachea Midline, Thyroid Normal Size and Texture Lungs: Clear to auscultation, No wheeze, No rales, Diminished, Rhonchi Cardiovascular: Regular rate, Regular Rhythm, Normal S1, Normal S2, No murmurs, PMI Normal, Tachycardic Abdomen: Bowel Sounds Present, Soft, Non Tender, Non-Distended, No Hepato-splenomegaly Extremities: No clubbing, No cyanosis, No edema Skin: No rashes, No breakdown Lymphatic: No Cervical, Supraclavicular, or Inguinal Adenopathy Neurological: Cranial nerves II-XII grossly intact, - - Moving all limbs. Psych/Mental Status: - - Unable to assess. Vital Signs Temp Pulse Resp BP Pulse Ox 99.5 F H 110 H 24 H 150/103 H 92 09/25/18 04:00 09/25/18 08:05 09/25/18 08:00 09/25/18 08:05 09/25/18 08:00 Oxygen Flow Rate (L/min) 2 Oxygen Delivery Method Room Air Weight: 176 lb 9.444 oz Body Mass Index (BMI) 25.5 Intake and Output for Last 24 Hours 09/23/18 09/24/18 09/25/18 23:59 23:59 23:59 Intake Total 98 / 98 1832 / 1832 1336 / 1336 Output Total 726 / 726 200 / 200 Balance 98 / 98 1106 / 1106 1136 / 1136 Laboratory Tests Past 24 Hrs 09/24/18 09/25/18 09/25/18 05:04 06:15 06:15 WBC 9.5 RBC 4.20 L Hgb 13.2 Hct 38.3 L MCV 91.2 MCH 31.4 MCHC 34.5 RDW 13.1 RDW Differential 43.1 Plt Count 368 MPV 9.8 Immature Gran % (Auto) 2.000 H Neut % (Auto) 60.6 Lymph % (Auto) 15.8 L [place] % (Auto) 16.8 H Eos % (Auto) 3.7 Baso % (Auto) 1.1 H Absolute Neuts (auto) 5.7 Absolute Lymphs (auto) 1.49 Total Counted Not Reportable Diff Path Review Reviewed February foll Sodium 144 Potassium 3.1 L Chloride 108 H Carbon Dioxide 24.0 Anion Gap 12 BUN 10 Creatinine 0.69 L Estim Creat Clear Calc 147.02 Est GFR (MDRD) Af Amer 161 Est GFR (MDRD) Non-Af 133 BUN/Creatinine Ratio 14.6 Glucose 82 Calcium 9.2 Medical Necessity - Tobacco Use Smoking Status: Never smoker Tobacco Use: Chew Assessment/Plan All Active Problems Abnormal LFTs (Acute) Alcohol withdrawal (Acute) This is a 43 years old male patient admitted for acute alcohol withdrawal for medical stabilization and his hospital course complicated by severe agitation and delirium tremens that required sedation and mechanical ventilation, status post extubation. He developed diarrhea and he was found to have acute C. difficile colitis. #1 acute alcohol withdrawal/delirium tremens: Patient was agitated overnight, received Geodon and received Haldol this morning. At this time, he is lethargic and sleepy, arousable, restless. Still hypertensive and tachycardic. He is off Precedex drip and IV Ativan for more than 24 hours. He is on folic acid and thiamine as well as multivitamins, Librium, methocarbamol, Imodium, Seroquel and Zofran. Repeat chest x-ray showed no acute infiltrate. Plan to continue same treatment. #2 acute C. difficile colitis: He is on oral vancomycin. He had one loose bowel movement overnight. #3 hypokalemia: Likely because of diarrhea. He is on potassium supplement with IV potassium chloride added to the IV fluids. #3 acute respiratory failure: Status post extubation, resolved. Respiratory status stabilized, pulse ox is maintained on room air. Plan as above. #4 elevated LFT: This is likely because of chronic liver disease secondary to alcohol abuse. #5 history of paroxysmal SVT: Status post ablation. He is in sinus tachycardia, started on metoprolol. #6 tobacco abuse: Nicotine polacrilex. #7 DVT prophylaxis: Subcu Lovenox. This note was generated with [employer] dictation software. It may contain incorrect words, spelling, and punctuation that were not noted in checking the note before signing. Code Visit Inpatient E&M: 21981 Subs Hosp L2
[2018-09-25] MEDS: Metoprolol Tartrate 100 MG Tablet PO ×2 (09:20→21:45)
[2018-09-25] MEDS: Famotidine 20 MG Tablet PO ×2 (09:21→21:45)
--- NOTE | 2018-09-25 09:42 | CASEMGMT ---
Addendum entered by Kassi Tellez 09/25/18 12:45: SW spoke Kevin Early, his note is in the paper chart. José Miguel is going to try to work on psych placement though states that pt having C-diff may be a hindrance. HARVEY Burroughs, ENTRY LEVEL MANAGEMENT Original Note: Addendum entered by Kassi Tellez 09/25/18 11:17: José Miguel Early is here now from crisis seeing pt. HARVEY Burroughs, ENTRY LEVEL MANAGEMENT Original Note: Addendum entered by Kassi Tellez 09/25/18 10:19: As per RN, pt is more awake now. SW checked in w/hospitalist, agreeable to have crisis see pt today. SW called crisis, spoke afshan/José Miguel Early, he will be over to see the pt. HARVEY Burroughs, ENTRY LEVEL MANAGEMENT Original Note: SW participated in ICU rounds this morning. Physician spoke w/pt's parents who state pt hallucinates every time he goes through withdrawal. As per physician, pt needs assessed by psychiatry. Pt is quite sleepy this morning however. SW called [facility], spoke Kevin Early in the crisis unit and explained that this pt at this point should be through his withdrawal, but is still hallucinating. SW explained that pt needs assessed and may need psych placement. As per José Miguel, pt needs to show he is a danger to himself or others, and insurance also has to agree to cover. As per José Miguel, pt's insurance, [employer], is rather restrictive in what they will cover. SW explained that at this time, it is difficult to assess if pt is a danger to himself or others, as pt is at present asleep, but when awake is agitated and hallucinating. José Miguel states that when pt is able to speak to crisis, we can call to have pt assessed. SW will call back or have ICU staff call back when pt is awake and able to speak w/someone from crisis. SW will continue to follow. HARVEY Burroughs, DONYA
[2018-09-25 12:25] LABS: Pathologist Review Reviewed
--- NOTE | 2018-09-25 15:12 | NURSING ---
PT STATED THAT HE WAS HUNGRY, SO WE ORDERED LUNCH OF TURKEY, MASHED POTATOS AND OJ. PT ABLE TO FEED SELF WITH MINIMAL SPILLING. PT STILL HAS NOTABLE TREMORS TO BUE. PT ATE APPROX 75% OF MEAL.
--- NOTE | 2018-09-25 16:15 | CASEMGMT ---
Social Work: TC from José Miguel Horne. José Miguel states that he has contacted 7 [facility] and 5 have denied patient due to either insurance issues or because the patient has C-diff. José Miguel states that he has sent clinicals to [facility] and [facility] as both facilities have agreed to look at patient for possible admission. This POWER TRANSFORMER ASSEMBLER spoke with Brad Harry, Accredited Pharmacy Technician who states that although patient was positive for C-diff, the C-diff toxins are negative. This POWER TRANSFORMER ASSEMBLER explained this to José Miguel at [facility] and José Miguel is asking this POWER TRANSFORMER ASSEMBLER to send that report to [facility], [facility] and [facility]. Reports faxed. Will be available to assist as needed. KARYN FiredmanS
--- NOTE | 2018-09-25 16:44 | CASEMGMT ---
Social Work: TC from José Miguel at [facility]. José Miguel states that [facility] may be able to accept patient and will notify the nursing unit once final acceptance has been determined. José Miguel states that if [facility] is not able to accept patient that [facility] power lineworker on this weekend will continue to try to find placement. Per José Miguel, staff should contact the power lineworker by calling and ask for the power lineworker. TC to ICU. Spoke with KENIA Hinds. Lizet aware that [facility] may be able to accept patient and will call the unit directly if able to accept. HARVEY Friedman
[2018-09-25] MEDS: QUEtiapine 100 MG Tablet 200 MG PO (21:43)
[2018-09-25] MEDS: CHLORHEXIDINE GLUC 2% CLOTH 1 EACH TOWELETTE TOPICAL (23:44)
[2018-09-26] VITALS (24 sets, daily range): BP systolic 110–157; BP diastolic 63–114; PULSE 86–117; RESP 16–30; TEMP 36.6–37.3; O2SAT 93–100
[2018-09-26] MEDS: Enoxaparin 40 MG/0.4 ML Syringe SC (05:47)
[2018-09-26 06:29] LABS: Anion Gap 10 (5-15); BUN 7 mg/dL (7-18); BUN/Creat Ratio 10.1 RATIO (10-20); Calcium,Total 9.1 mg/dL (8.5-10.1); Chloride 107 mmol/L (98-107); Creatinine, Serum 0.69 mg/dL (0.70-1.30); EST Glomerular Filtration Rate 132 mL/min (>60); Est Glom Filt Rate - Afr Amer 160 mL/min (>60); Estimated Creatinine Clearance 147.02 ml/min; Glucose 84 mg/dL (74-106); Potassium 3.7 mmol/L (3.5-5.1); Sodium Level 142 mmol/L (136-145)
[2018-09-26 06:41] LABS: Bacteria 0 SEEN /hpf (None Seen); Mucous, Urine 0 SEEN /hpf (<or=2+); Red Blood Cells-Urine 0 SEEN /hpf (0-5); Squamous Epithelial Cells - UA 0 SEEN /hpf (0-5); White Blood Cells 0 SEEN /hpf (0-5)
--- NOTE | 2018-09-26 06:49 | PN_ITS ---
Subjective: Patient did okay overnight. Patient has been impulsive, but redirectable. Patient has remained on room air. Patient was evaluated by crisis yesterday and has been accepted for psychiatric evaluation. Patient has not had any stools overnight. General: Alert, Confused, Disoriented, - - Follows some commands. HEENT: Atraumatic, PERRLA, EOMI, Normocephalic, - - No scleral icterus or injection noted. Oral: Moist Mucosa, No Gingival or Mucosal Lesions/ Ulcerations Neck: Supple, No JVD, No Nodes, Trachea Midline Lungs: Clear to auscultation, Normal air movement, No rhonchi, No wheeze, No rales Cardiovascular: Regular Rhythm, Normal S1, Normal S2, No murmurs, No rub noted, No Gallop, Tachycardic Abdomen: Bowel Sounds Present, Soft, Non Tender, Non-Distended Extremities: No clubbing, No cyanosis, No edema, Capillary Refill Less than 3 Seconds Skin: No rashes, No breakdown Musculoskeletal: No Tenderness to Palpation of Joints or Extremities Lymphatic: No Cervical, Supraclavicular, or Inguinal Adenopathy Neurological: Cranial nerves II-XII grossly intact, Neuro grossly intact, Motor Exam 5/5 strength throughout Psych/Mental Status: Impulsive, Restless Vital Signs Temp Pulse Resp BP Pulse Ox 37.0 C 93 24 H 145/99 H 94 09/26/18 04:00 09/26/18 06:00 09/26/18 06:00 09/26/18 06:00 09/26/18 06:00 Oxygen Flow Rate (L/min) 2 Oxygen Delivery Method Room Air Weight: 82.3 kg Body Mass Index (BMI) 25.5 Intake and Output for Last 24 Hours 09/24/18 09/25/18 09/26/18 23:59 23:59 23:59 Intake Total 1832 / 1832 4271 / 4271 600 / 600 Output Total 726 / 726 1375 / 1375 500 / 500 Balance 1106 / 1106 2896 / 2896 100 / 100 Labs (Last 48 Hours) 09/21/18 09/24/18 09/25/18 16:15 05:04 06:15 WBC 9.5 RBC 4.20 L Hgb 13.2 Hct 38.3 L MCV 91.2 MCH 31.4 MCHC 34.5 RDW 13.1 RDW Differential 43.1 Plt Count 368 MPV 9.8 Immature Gran % (Auto) 2.000 H Neut % (Auto) 60.6 Lymph % (Auto) 15.8 L [place] % (Auto) 16.8 H Eos % (Auto) 3.7 Baso % (Auto) 1.1 H Absolute Neuts (auto) 5.7 Absolute Lymphs (auto) 1.49 Total Counted Not Reportable Diff Path Review Reviewed Reviewed Sodium Potassium Chloride Carbon Dioxide Anion Gap BUN Creatinine Estim Creat Clear Calc Est GFR (MDRD) Af Amer Est GFR (MDRD) Non-Af BUN/Creatinine Ratio Glucose Calcium Urine Color Urine Clarity Urine pH Ur Specific [place] Urine Protein Urine Glucose (UA) Urine Ketones Urine Occult Blood Urine Nitrite Urine Bilirubin Urine Urobilinogen Ur Leukocyte Esterase Urine RBC Urine WBC Ur Squamous Epith Cells Urine Bacteria Urine Mucus Urine Opiates Screen Urine Methadone Screen Ur Barbiturates Screen Ur Phencyclidine Scrn Ur Amphetamines Screen U Methamphetamin-MDMA U Benzodiazepines Scrn Urine Cocaine Screen U Cannabinoids Screen Ur Drug Screen Comment Miscellaneous Test 09/25/18 09/26/18 09/26/18 06:15 05:50 06:30 WBC RBC Hgb Hct MCV MCH MCHC RDW RDW Differential Plt Count MPV Immature Gran % (Auto) Neut % (Auto) Lymph % (Auto) [place] % (Auto) Eos % (Auto) Baso % (Auto) Absolute Neuts (auto) Absolute Lymphs (auto) Total Counted Diff Path Review Sodium 144 142 Potassium 3.1 L 3.7 Chloride 108 H 107 Carbon Dioxide 24.0 25.0 Anion Gap 12 10 BUN 10 7 Creatinine 0.69 L 0.69 L Estim Creat Clear Calc 147.02 147.02 Est GFR (MDRD) Af Amer 161 160 Est GFR (MDRD) Non-Af 133 132 BUN/Creatinine Ratio 14.6 10.1 Glucose 82 84 Calcium 9.2 9.1 Urine Color Urine Clarity Urine pH Ur Specific [place] Urine Protein Urine Glucose (UA) Urine Ketones Urine Occult Blood Urine Nitrite Urine Bilirubin Urine Urobilinogen Ur Leukocyte Esterase Urine RBC Urine WBC Ur Squamous Epith Cells Urine Bacteria Urine Mucus Urine Opiates Screen Pending Urine Methadone Screen Pending Ur Barbiturates Screen Pending Ur Phencyclidine Scrn Pending Ur Amphetamines Screen Pending U Methamphetamin-MDMA Pending U Benzodiazepines Scrn Pending Urine Cocaine Screen Pending U Cannabinoids Screen Pending Ur Drug Screen Comment Miscellaneous Test 09/26/18 06:30 WBC RBC Hgb Hct MCV MCH MCHC RDW RDW Differential Plt Count MPV Immature Gran % (Auto) Neut % (Auto) Lymph % (Auto) [place] % (Auto) Eos % (Auto) Baso % (Auto) Absolute Neuts (auto) Absolute Lymphs (auto) Total Counted Diff Path Review Sodium Potassium Chloride Carbon Dioxide Anion Gap BUN Creatinine Estim Creat Clear Calc Est GFR (MDRD) Af Amer Est GFR (MDRD) Non-Af BUN/Creatinine Ratio Glucose Calcium Urine Color Pending Urine Clarity Pending Urine pH Pending Ur Specific [place] Pending Urine Protein Pending Urine Glucose (UA) Pending Urine Ketones Pending Urine Occult Blood Pending Urine Nitrite Pending Urine Bilirubin Pending Urine Urobilinogen Pending Ur Leukocyte Esterase Pending Urine RBC Pending Urine WBC Pending Ur Squamous Epith Cells Pending Urine Bacteria Pending Urine Mucus Pending Urine Opiates Screen Urine Methadone Screen Ur Barbiturates Screen Ur Phencyclidine Scrn Ur Amphetamines Screen U Methamphetamin-MDMA U Benzodiazepines Scrn Urine Cocaine Screen U Cannabinoids Screen Ur Drug Screen Comment Miscellaneous Test Medical Necessity - Tobacco Use Smoking Status: Never smoker Tobacco Use: Chew Assessment/Plan All Active Problems Abnormal LFTs (Acute) Alcohol withdrawal (Acute) RECOMMENDATIONS: 1. Continue Seroquel 2. Obtain UA and tox screen per crisis request 3. Continue p.o. vancomycin 4. Increase activity as tolerated 5. Continue Lovenox and Pepcid for prophylaxis 6. Hemodynamically stable on room air. Will sign off from a critical care perspective IMPRESSIONS: 1. Acute respiratory failure RESOLVED > patient has been stable on room air without complication. Patient does have intermittent tachypnea associated with agitation, but otherwise has been doing well. 2. Acute alcohol withdrawal Unclear if patient's current hallucinations and tremor are related to alcohol withdrawal versus possible underlying delirium versus schizophrenia. Patient was actively hallucinating this morning and was attempting to pet a cat. Patient has been accepted to a psychiatric facility once hemodynamically stable. Patient is requested to have a tox screen and UA. Patient was on fentanyl previously. 3. Acute C. difficile Responding well to therapy. Unclear etiology at this time. Patient has had episodes of confusion earlier in the hospitalization with wandering of the halls. Patient is on appropriate therapy now and appears to be responding appropriately with decreased bowel movements. This may be leading to some of his confusion. Barrier cream will be added. Patient no longer has leukocytosis. 4. Personal history of tobacco dependence/hypertension Complicates care, management, recovery and prognosis. Continue nicotine replacement therapy as ordered. Code Visit Inpatient E&M: 46615 Subs Hosp L2
[2018-09-26 07:12] LABS: Color, Urine Yellow (Yellow); Glucose, Dipstick Normal (Normal); Ketone-Dipstick Negative (Negative); Leukocyte Esterase-Dipstick Negative /ul (Negative); Nitrite-Dipstick Negative (Negative); Occult Blood-Urine Negative /ul (Negative); Protein-Dipstick Negative (Negative); Urine Bilirubin Dipstick Negative (Negative); Urine Clarity Clear (Clear); Urine Urobilinogen Normal (Normal)
[2018-09-26 07:19] LABS: Amphetamine Urine VISTA NEGATIVE (<1000 ng/mL); Barbiturate Urine VISTA NEGATIVE (< 200 ng/mL); Benzodiazepine Urine VISTA POSITIVE (< 200 ng/mL); Cocaine Urine VISTA NEGATIVE (< 300 ng/mL); Ecstacy Urine VISTA NEGATIVE (< 500 ng/mL); Methadone Urine VISTA NEGATIVE (< 300 ng/mL); PCP Urine VISTA NEGATIVE (< 25 ng/mL); THC Urine VISTA NEGATIVE (< 50 ng/mL); Vista UDS pH Range 7
[2018-09-26] MEDS: QUEtiapine 100 MG Tablet 200 MG PO ×2 (08:07→22:35)
[2018-09-26] MEDS: Thiamine Hydrochloride 100 MG Tablet PO (08:07)
[2018-09-26] MEDS: Metoprolol Tartrate 100 MG Tablet PO ×2 (08:07→20:16)
[2018-09-26] MEDS: Folic Acid 1 MG Tablet PO (08:07)
[2018-09-26] MEDS: Famotidine 20 MG Tablet PO ×2 (08:07→22:35)
[2018-09-26] MEDS: Multivitamins,Therapeutic Tablet 1 TABLET PO (08:08)
--- NOTE | 2018-09-26 08:46 | PN_ITS ---
Subjective: Chief complaint: Follow-up after admission for acute severe alcohol withdrawal/delirium tremens and acute C. difficile colitis. Patient seen and examined. This morning, he is more alert, oriented and able to communicate. He denied any chest pain or shortness of breath. He complains of mild back pain because he has been on the bed for a few days. Mental health causes yesterday and he has been accepted for psychiatric evaluation. Heart rate improved, down to around 90-100, blood pressure slightly elevated, other vital signs are stable. - Physical Exam General: Alert, Oriented x3, Cooperative, - - Impulsive. HEENT: Atraumatic, PERRLA, EOMI, Normocephalic Oral: Moist Mucosa, No Gingival or Mucosal Lesions/ Ulcerations Neck: Supple, No JVD, Negative Carotid Bruits, Trachea Midline, Thyroid Normal Size and Texture Lungs: Clear to auscultation, No wheeze, No rales, Diminished, Rhonchi Cardiovascular: Regular rate, Regular Rhythm, Normal S1, Normal S2, PMI Normal Abdomen: Bowel Sounds Present, Soft, Non Tender, Non-Distended, No Hepato- splenomegaly Extremities: No clubbing, No cyanosis, No edema Skin: No rashes, No breakdown Lymphatic: No Cervical, Supraclavicular, or Inguinal Adenopathy Neurological: Cranial nerves II-XII grossly intact, Motor Exam 5/5 strength throughout Psych/Mental Status: Restless Vital Signs Temp Pulse Resp BP Pulse Ox 98.6 F 99 22 H 152/102 H 95 09/26/18 04:00 09/26/18 08:07 09/26/18 07:00 09/26/18 08:07 09/26/18 07:00 Oxygen Flow Rate (L/min) 2 Oxygen Delivery Method Room Air Weight: 181 lb 7.047 oz Body Mass Index (BMI) 25.5 Intake and Output for Last 24 Hours 09/24/18 09/25/18 09/26/18 23:59 23:59 23:59 Intake Total 1832 / 1832 4271 / 4271 600 / 600 Output Total 726 / 726 1375 / 1375 500 / 500 Balance 1106 / 1106 2896 / 2896 100 / 100 Laboratory Tests Past 24 Hrs 09/21/18 09/25/18 09/26/18 16:15 06:15 05:50 Diff Path Review Reviewed Sodium 142 Potassium 3.7 Chloride 107 Carbon Dioxide 25.0 Anion Gap 10 BUN 7 Creatinine 0.69 L Estim Creat Clear Calc 147.02 Est GFR (MDRD) Af Amer 160 Est GFR (MDRD) Non-Af 132 BUN/Creatinine Ratio 10.1 Glucose 84 Calcium 9.1 Urine Color Urine Clarity Urine pH Ur Specific Boykins Urine Protein Urine Glucose (UA) Urine Ketones Urine Occult Blood Urine Nitrite Urine Bilirubin Urine Urobilinogen Ur Leukocyte Esterase Urine RBC Urine WBC Ur Squamous Epith Cells Urine Bacteria Urine Mucus Urine Opiates Screen Urine Methadone Screen Ur Barbiturates Screen Ur Phencyclidine Scrn Ur Amphetamines Screen U Methamphetamin-MDMA U Benzodiazepines Scrn Urine Cocaine Screen U Cannabinoids Screen Ur Drug Screen Comment Miscellaneous Test 09/26/18 09/26/18 06:30 06:30 Diff Path Review Sodium Potassium Chloride Carbon Dioxide Anion Gap BUN Creatinine Estim Creat Clear Calc Est GFR (MDRD) Af Amer Est GFR (MDRD) Non-Af BUN/Creatinine Ratio Glucose Calcium Urine Color Yellow Urine Clarity Clear Urine pH 8.0 Ur Specific Boykins 1.010 Urine Protein Negative Urine Glucose (UA) Normal Urine Ketones Negative Urine Occult Blood Negative Urine Nitrite Negative Urine Bilirubin Negative Urine Urobilinogen Normal Ur Leukocyte Esterase Negative Urine RBC 0 SEEN Urine WBC 0 SEEN Ur Squamous Epith Cells 0 SEEN Urine Bacteria 0 SEEN Urine Mucus 0 SEEN Urine Opiates Screen NEGATIVE Urine Methadone Screen NEGATIVE Ur Barbiturates Screen NEGATIVE Ur Phencyclidine Scrn NEGATIVE Ur Amphetamines Screen NEGATIVE U Methamphetamin-MDMA NEGATIVE U Benzodiazepines Scrn POSITIVE H Urine Cocaine Screen NEGATIVE U Cannabinoids Screen NEGATIVE Ur Drug Screen Comment Miscellaneous Test Medical Necessity - Tobacco Use Smoking Status: Never smoker Tobacco Use: Chew Assessment/Plan All Active Problems Abnormal LFTs (Acute) Alcohol withdrawal (Acute) This is a 43 years old male patient admitted for acute alcohol withdrawal for medical stabilization and his hospital course complicated by severe agitation and delirium tremens that required sedation and mechanical ventilation, status post extubation. He developed diarrhea and he was found to have acute C. difficile colitis. #1 acute alcohol withdrawal/delirium tremens: He is on folic acid, thiamine multivitamins and Seroquel. He is more alert and awake today. He was able to come out of bed and sit on the chair for breakfast. Heart rate improved, down to around 100, blood pressure improved as well, other vital signs are stable. He was seen by mental health crisis yesterday and approved for psychiatric evaluation at their facility for hallucination. Plan to continue same treatment, probable transfer to psychiatric facility later today. #2 acute C. difficile colitis: He is on oral vancomycin. He had no more bowel movement overnight. #3 hypokalemia: Likely because of diarrhea. Replaced and corrected, today's potassium is 3.7. #3 acute respiratory failure: Status post extubation, resolved. Respiratory status stabilized, pulse ox is maintained on room air. Plan as above. #4 elevated LFT: This is likely because of chronic liver disease secondary to alcohol abuse. #5 history of paroxysmal SVT: Status post ablation. He is in sinus tachycardia, on metoprolol, heart rate improved. #6 tobacco abuse: Nicotine polacrilex. #7 DVT prophylaxis: Subcu Lovenox. This note was generated with [employer] dictation software. It may contain incorrect words, spelling, and punctuation that were not noted in checking the note before signing.
--- NOTE | 2018-09-26 09:25 | CASEMGMT ---
As per RN, [facility] had a bed for pt yesterday, however pt was not medically ready. If pt is medically cleared today, RN will call [facility]. If they do not have a bed, RN will call crisis or will call this SW to call crisis. HARVEY Burroughs, G[employer] POWERPLANT MECHANIC HELPER
--- NOTE | 2018-09-26 12:20 | NURSING ---
Patients mother and father at bedside to visit. Patient is disoriented at this time. Patients mother is taking home the patients wallet and cell phone.
--- NOTE | 2018-09-26 17:00 | NURSING ---
Nurse is acting one-on-one sitter at bedside. Pt. is restless, speech is garbled, rambling and unintelligable. Pulling at telemetry wires and needs frequent distraction/redirection.
[2018-09-26] MEDS: chlordiazePOXIDE 25 MG Capsule 50 MG PO (17:05)
--- NOTE | 2018-09-26 17:35 | NURSING ---
Pt. gets OOB, pulling at wires, rambling about a credit card and looking under the bed. Flails arms at nurse when tried to be redirected into bed. Unable to follow commands. Nurse calls ore charger, Lesli, to requests immediate assistance in room. Nurse and Lesli convince pt. to get back into bed. Soft wrist restraints applied and Lesli to notify Dr. Paulino.
--- NOTE | 2018-09-26 17:57 | NURSING ---
Request oral vancomycin and IVF from pharmacy
--- NOTE | 2018-09-26 18:06 | NURSING ---
Nurse attempts to place attends on patient. He states, No. You're not touching me there.
--- NOTE | 2018-09-26 18:30 | NURSING ---
Pt. attempting to get OOB with soft wrist restraints in place. Legs dangling off bed. Nurse attempts to reposition pt. back into bed and he attempts to kick nurse. Pt. will not follow verbal directions. Smiley zuniga called.
--- NOTE | 2018-09-26 21:24 | NURSING ---
Pt attempting to get oob, states wants to go home and sleep in own bed. Reminded pt that his parents have his keys and wallet. Reoriented to time. Offered HS meds including seroquel. Pt refusing. Offered to assist pt to bathroom to complete hs care. Pt declined. Pt able to lay back in bed after this nurse talked with him. Will continue 1:1 observation. Will offer hs meds later.
--- NOTE | 2018-09-26 22:02 | NURSING ---
Pt again restless, trying to get out of bed. Assisted to bathroom, pt urinated. Pt insists he wants to call [employer] and get a ride home. Attempted to redirect pt, did get him back in bed.
[2018-09-26] MEDS: hydrALAZINE 20 MG/ML Vial 10 MG IV (22:24)
[2018-09-26] MEDS: 0.9% NaCl Peripheral Flush Adult/Peds IV (22:25)
--- NOTE | 2018-09-26 23:05 | NURSING ---
Pt increasingly agitated, wants to go home. Charge nurse Chaparrita and CROP RESEARCH SCIENTIST Sonal at bedside assisting this nurse to verbally deescalate pt. Pt standing at bedside. Unsteady. Wants to go to [place] for beer. Pt eventually agreed to go back to bed with much encouragement. Requesting soda and something to eat. Given meal tray and caffeine free cola. 1:1 obs maintained by this nurse.
--- NOTE | 2018-09-26 23:10 | NURSING ---
IVF disconnected when pt was agitated. Will leave off for now as he was pulling at line.
--- NOTE | 2018-09-26 23:56 | NURSING ---
Pt muttering to self, smiling, laughing at times. Reaching for unseen items. Reoriented. TV turned down to decrease stimulation.
[2018-09-27] VITALS (8 sets, daily range): BP systolic 101–162; BP diastolic 67–110; PULSE 81–102; RESP 16–24; TEMP 36.3–37.1; O2SAT 94–97
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
[2018-09-27] MEDS: LORazepam 2 MG/ML Syringe IV (00:51)
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
--- NOTE | 2018-09-27 01:11 | NURSING ---
Pt again trying to get oob, offered urinal, offered drink. Pt yelling at nurses that he sees his dad in his room. Pt informed his dad is not here. trying to get up to check it out, unsteady and weak, grabbing at auditor in chargeKENIA Cheatham. Verbally and physically escalating despite attempts to calm him. turned quotation checker light. field geologist Portia, Alia AQUINO, and VICE PRESIDENT EDUCATION responded. Alia gave patient a head massage to help relax him.
[2018-09-27] MEDS: chlordiazePOXIDE 25 MG Capsule 50 MG PO (01:19)
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
[2018-09-27] MEDS: Haloperidol Lactate 5 MG/ML Vial 4 MG IV (02:19)
--- NOTE | 2018-09-27 04:31 | NURSING ---
Pt suddenly rigorous at this time while sleeping, arouses to verbal stim. Temp 97.8, c/o a little cold. Warm blankets applied and rigors stopped. O2 sat 96%.
--- NOTE | 2018-09-27 07:31 | NURSING ---
Addendum entered by Melissa Ng 09/27/18 07:51: No soft restraints were on pt at time of shift change and remain off. Original Note: pt given 4mg IM haldol at 0214. Pt resting eyes closed, snoring softly at shift change. No physical signs of pain or discomfort, will continue to monitor patient as this RN to be 1:1 with patient today.
--- NOTE | 2018-09-27 07:47 | NURSING ---
Addendum entered by Melissa Ng 09/27/18 08:48: pt had medium formed/ soft bm at this time. Therapy worked with pt- and currently sitting in recliner eating breakfast and watching [employer]. Original Note: LBM 09/25/18- no stools t/o night. Per report, pt continent of urine at start of shift, but had episode of urinary incontinence x1 with escalation of behaviors/ agitation during night. Pt refusing to wear brief- incontinence care provided at that time.
--- NOTE | 2018-09-27 08:34 | PCM.PROGNOTE ---
Subjective: Chief complaint: Follow-up after admission for acute severe alcohol withdrawal/delirium tremens and acute C. difficile colitis. Patient seen and examined. Overnight and according to the nursing staff, patient was very agitated, restless and had hallucination and he received Ativan and Haldol. This morning, he is alert and oriented. He did complain of auditory hallucination and he mentioned that he has dose in the past as well when he drinks. Yesterday, mental health older worker specialist tried to get the patient into psychiatric facility but he was refused. He has no bowel movements since the fall yesterday. Denied abdominal pain, fever or chills. His blood pressure slightly elevated, other vital signs are stable. - Physical Exam General: Alert, Cooperative, - - Restless. HEENT: Atraumatic, PERRLA, EOMI, Normocephalic Oral: Moist Mucosa, No Gingival or Mucosal Lesions/ Ulcerations Neck: Supple, No JVD, Negative Carotid Bruits Lungs: Clear to auscultation, No wheeze, No rales, Diminished, Rhonchi Cardiovascular: Regular rate, Regular Rhythm, Normal S1, Normal S2, PMI Normal Abdomen: Bowel Sounds Present, Soft, Non Tender, Non-Distended, No Hepato-splenomegaly Extremities: No clubbing, No cyanosis, No edema Skin: No rashes, No breakdown Lymphatic: No Cervical, Supraclavicular, or Inguinal Adenopathy Neurological: Cranial nerves II-XII grossly intact, Motor Exam 5/5 strength throughout Psych/Mental Status: Anxious, Restless Vital Signs Temp Pulse Resp BP Pulse Ox 97.3 F L 94 16 162/110 H 96 09/27/18 08:00 09/27/18 08:00 09/27/18 08:00 09/27/18 08:00 09/27/18 08:00 Oxygen Flow Rate (L/min) 2 Oxygen Delivery Method Room Air Weight: 181 lb 7.047 oz Body Mass Index (BMI) 25.5 Intake and Output for Last 24 Hours 09/25/18 09/26/18 09/27/18 23:59 23:59 23:59 Intake Total 4271 / 4271 1519 / 1519 240 / 240 Output Total 1375 / 1375 500 / 500 Balance 2896 / 2896 1019 / 1019 240 / 240 Medical Necessity - Tobacco Use Smoking Status: Never smoker Tobacco Use: Chew Assessment/Plan All Active Problems Abnormal LFTs (Acute) Alcohol withdrawal (Acute) This is a 43 years old male patient admitted for acute alcohol withdrawal for medical stabilization and his hospital course complicated by severe agitation and delirium tremens that required sedation and mechanical ventilation, status post extubation. He developed diarrhea and he was found to have acute C. difficile colitis. #1 acute alcohol withdrawal/delirium tremens: Overnight, patient was agitated, restless and combative and he had, mainly auditory. He is on folic acid, thiamine multivitamins and Seroquel. He is more alert and awake today. Mental health crisis team yesterday tried to get him into psychiatric facility but he was refused at multiple facilities. Today, blood pressure slightly elevated, other vital signs are stable. Plan to continue same treatment, will discuss again with the lead case manager and mental health crisis about placement to psychiatric facility for psychiatric evaluation. #2 acute C. difficile colitis: He is on day 7 of on oral vancomycin. He had normal bowel movements, no abdominal pain, no fever or chills. Plan to continue treatment for 10 days. #3 hypokalemia: Likely because of diarrhea. Replaced and corrected, yesterday's potassium is 3.7. #3 acute respiratory failure: Status post extubation, resolved. Respiratory status stabilized, pulse ox is maintained on room air. Plan as above. #4 elevated LFT: This is likely because of chronic liver disease secondary to alcohol abuse. #5 history of paroxysmal SVT: Status post ablation. He is in sinus tachycardia, on metoprolol, heart rate improved. #6 tobacco abuse: Nicotine polacrilex. #7 DVT prophylaxis: Subcu Lovenox. This note was generated with [employer] dictation software. It may contain incorrect words, spelling, and punctuation that were not noted in checking the note before signing. Code Visit Inpatient E&M: 08034 Subs Hosp L2
--- NOTE | 2018-09-27 08:39 | PN_ITS ---
Subjective: Chief complaint: Follow-up after admission for acute severe alcohol withdrawal/delirium tremens and acute C. difficile colitis. Patient seen and examined. Overnight and according to the nursing staff, patient was very agitated, restless and had hallucination and he received Ativan and Haldol. This morning, he is alert and oriented. He did complain of auditory hallucination and he mentioned that he has dose in the past as well when he drinks. Yesterday, mental health drug abuse worker tried to get the patient into psychiatric facility but he was refused. He has no bowel movements since the fall yesterday. Denied abdominal pain, fever or chills. His blood pressure slightly elevated, other vital signs are stable. - Physical Exam General: Alert, Cooperative, - - Restless. HEENT: Atraumatic, PERRLA, EOMI, Normocephalic Oral: Moist Mucosa, No Gingival or Mucosal Lesions/ Ulcerations Neck: Supple, No JVD, Negative Carotid Bruits Lungs: Clear to auscultation, No wheeze, No rales, Diminished, Rhonchi Cardiovascular: Regular rate, Regular Rhythm, Normal S1, Normal S2, PMI Normal Abdomen: Bowel Sounds Present, Soft, Non Tender, Non-Distended, No Hepato- splenomegaly Extremities: No clubbing, No cyanosis, No edema Skin: No rashes, No breakdown Lymphatic: No Cervical, Supraclavicular, or Inguinal Adenopathy Neurological: Cranial nerves II-XII grossly intact, Motor Exam 5/5 strength throughout Psych/Mental Status: Anxious, Restless Vital Signs Temp Pulse Resp BP Pulse Ox 97.3 F L 94 16 162/110 H 96 09/27/18 08:00 09/27/18 08:00 09/27/18 08:00 09/27/18 08:00 09/27/18 08:00 Oxygen Flow Rate (L/min) 2 Oxygen Delivery Method Room Air Weight: 181 lb 7.047 oz Body Mass Index (BMI) 25.5 Intake and Output for Last 24 Hours 09/25/18 09/26/18 09/27/18 23:59 23:59 23:59 Intake Total 4271 / 4271 1519 / 1519 240 / 240 Output Total 1375 / 1375 500 / 500 Balance 2896 / 2896 1019 / 1019 240 / 240 Medical Necessity - Tobacco Use Smoking Status: Never smoker Tobacco Use: Chew Assessment/Plan All Active Problems Abnormal LFTs (Acute) Alcohol withdrawal (Acute) This is a 43 years old male patient admitted for acute alcohol withdrawal for medical stabilization and his hospital course complicated by severe agitation and delirium tremens that required sedation and mechanical ventilation, status post extubation. He developed diarrhea and he was found to have acute C. difficile colitis. #1 acute alcohol withdrawal/delirium tremens: Overnight, patient was agitated, restless and combative and he had, mainly auditory. He is on folic acid, thiamine multivitamins and Seroquel. He is more alert and awake today. Mental health crisis team yesterday tried to get him into psychiatric facility but he was refused at multiple facilities. Today, blood pressure slightly elevated, other vital signs are stable. Plan to continue same treatment, will discuss again with the case finisher and mental health crisis about placement to psychiatric facility for psychiatric evaluation. #2 acute C. difficile colitis: He is on day 7 of on oral vancomycin. He had normal bowel movements, no abdominal pain, no fever or chills. Plan to continue treatment for 10 days. #3 hypokalemia: Likely because of diarrhea. Replaced and corrected, yesterday's potassium is 3.7. #3 acute respiratory failure: Status post extubation, resolved. Respiratory status stabilized, pulse ox is maintained on room air. Plan as above. #4 elevated LFT: This is likely because of chronic liver disease secondary to alcohol abuse. #5 history of paroxysmal SVT: Status post ablation. He is in sinus tachycardia, on metoprolol, heart rate improved. #6 tobacco abuse: Nicotine polacrilex. #7 DVT prophylaxis: Subcu Lovenox. This note was generated with [employer] dictation software. It may contain incorrect words, spelling, and punctuation that were not noted in checking the note before signing. Code Visit Inpatient E&M: 50248 Subs Hosp L2
[2018-09-27] MEDS: Famotidine 20 MG Tablet PO ×2 (08:40→20:57)
[2018-09-27] MEDS: Multivitamins,Therapeutic Tablet 1 TABLET PO (08:40)
[2018-09-27] MEDS: Thiamine Hydrochloride 100 MG Tablet PO (08:40)
[2018-09-27] MEDS: Folic Acid 1 MG Tablet PO (08:40)
[2018-09-27] MEDS: QUEtiapine 100 MG Tablet 200 MG PO ×2 (08:40→20:57)
[2018-09-27] MEDS: Metoprolol Tartrate 100 MG Tablet PO ×2 (08:40→20:57)
--- NOTE | 2018-09-27 09:02 | NURSING ---
pt requesting to talk to father- assisted with calling him at this time. while talking on phone with father- pt stood up and attempted to return to bed- unsteady on feet- assist x1. Pt ate 80% of breakfast, given ensure by this RN and ensure pudding on tray- pt refused both.
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
--- NOTE | 2018-09-27 15:46 | NURSING ---
Pt. states that he does not normally hear voices and has not t/o the day today. He states that the only time he hears voices is when he during withdrawal. Pt states that he started drinking around the age of 18-19 because his friends did and it seemed to be the thing to do. Pt. has been calm this shift, on occasion will state that he needs a phone because he has calls he needs to make regarding bills and credit cards. He quickly redirects himself and states that he will worry about that later. Pt able to shower this shift and bed linens changed. 1:1 continues
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
--- NOTE | 2018-09-27 18:20 | NURSING ---
attempted to awaken pt at this time to offer dinner and antibiotic. Pt refusing both. States to just put my dinner in the oven and it will stay nice and warm. States he will the the antibiotic but in a little bit. Rolled over and closed eyes and began snoring softly.
--- NOTE | 2018-09-27 19:02 | NURSING ---
This RN to hang sign outside of door indicating pt has ability to become violent. 1:1 continues. Pt currently resting with eyes closed. This RN attempted to awaken pt to see if he would like dinner and medications- pt again states later. refusing at this time.
[2018-09-28 02:20] VITALS: BP 122/76; PULSE 86; RESP 18; TEMP 36.9; O2SAT 97
[2018-09-28 07:35] VITALS: BP 137/96; PULSE 84; RESP 16; TEMP 37.2; O2SAT 94
--- NOTE | 2018-09-28 07:51 | PCM.PN.HOSP ---
Subjective: Patient with no acute events overnight per self and per nursing report. Patient orientation has remained x3 and patient appears less agitated with continued oral Seroquel regimen. Patient denying any homicidal or suicidal ideations at this time. Patient reevaluation per crisis given clearance for discontinuation of contact precautions and isolation precautions. Given patient improvement fill presentation likely secondary to alcoholism and given no suicidal or homicidal ideations patient not appropriate for psychiatric facility at this time. Patient is amenable to [facility] facility placement given severity of debilities with precertification pending. Patient notes that stools have been formed and denies any further diarrhea. He denies any abdominal discomfort associated as well. Patient tolerating diet well. Patient denies fevers, chills, nausea, emesis, abdominal pain, chest pain or dyspnea. Objective: Physical Examination: General: awake, alert, oriented x 3 and cooperative, seated upright in bed in no apparent distress, no marked agitation. Skin: normal color, turgor, no icterus, cyanosis. HEENT: AT/NC, EOMI, PERRLA, MMM. Lungs: CTA bilaterally, moderate effort, mild decrease BL bases, no rales, ronchi or wheezing. Heart: Regular rate and rhythm; no gallop, rub audible. Abdomen: soft, NTTP, ND, normal BS. Extremities: no cyanosis, clubbing, or edema. Neurological: patient awake, alert, oriented x 3; cognitive function improved; pupils equally reactive to light and accomodation; cranial nerves II-XII grossly normal, moving all 4 extremities, no focal deficits, strength moderately globally decreased, remains very spontaneous, fall risk. Psychiatric: affect appears normal, currently does not appear agitated, no acute evidence of depressive or anxiety feelings, denies any SI/homicidal ideation. Vitals/I&O's: Vital Signs Temp Pulse Resp BP Pulse Ox 99.0 F 84 16 137/96 H 94 09/28/18 07:35 09/28/18 07:35 09/28/18 07:35 09/28/18 07:35 09/28/18 07:35 Oxygen Flow Rate (L/min) 2 Oxygen Delivery Method Room Air Weight: 181 lb 7.047 oz Body Mass Index (BMI) 25.5 Intake and Output for Last 24 Hours 12/01/18 12/02/18 12/03/18 23:59 23:59 23:59 Intake Total 1519 / 1519 1979 240 / 240 Output Total 500 / 500 Balance 1019 / 1019 1979 240 / 240 Current Medications Acetaminophen (Tylenol) 500 mg PO Q4H PRN PRN PRN Reason: Temp > 100.4 F Albuterol Sulfate (Ventolin Aerosols) 2.5 mg INHALATION Q2H PRN PRN PRN Reason: dyspnea, wheezing Bisacodyl (Dulcolax) 10 mg RECTAL DAILY PRN PRN Reason: Constipation Chlordiazepoxide (Librium) 50 mg PO TID PRN PRN PRN Reason: Alcohol Withdrawal Last Admin: 09/27/18 01:19 Dose: 50 mg Enoxaparin Sodium (Lovenox) 40 mg SC DAILY@0600 [facility] Last Admin: 09/28/18 05:23 Dose: Not Given Famotidine (Pepcid) 20 mg PO BID [facility] Last Admin: 09/27/18 20:57 Dose: 20 mg [facility] Last Admin: 09/27/18 08:40 Dose: 1 mg Hydralazine HCl (Apresoline Iv) 10 mg IV Q4H PRN PRN PRN Reason: hypertension Last Admin: 09/26/18 22:24 Dose: 10 mg Ibuprofen (Motrin) 600 mg PO Q8H PRN PRN PRN Reason: Mild-Moderate Pain (1-5/10) Last Admin: 09/24/18 05:52 Dose: 600 mg Metoprolol Tartrate (Lopressor (Beta Romel)) 100 mg PO BID [facility] Last Admin: 09/27/18 20:57 Dose: 100 mg Multivit[facility] ([facility]amin) [facility] Last Admin: 09/27/18 08:40 Dose: 1 tablet Nutritional Formula (Lactose Free) (Ensure Enlive) 120 ml PO 4X/DAY [facility] Last Admin: 09/27/18 18:48 Dose: Not Given Ondansetron HCl (Zofran Odt) 4 mg PO Q6H PRN PRN PRN Reason: NAUSEA Last Admin: 09/23/18 10:32 Dose: 4 mg Quetiapine Fumarate (Seroquel) 200 mg PO BID [facility] Last Admin: 09/27/18 20:57 Dose: 200 mg Sodium Chloride () 5 - 30 ml IV UD PRN PRN Reason: SALINE FLUSH Last Admin: 09/26/18 22:25 Dose: 10 ml Sodium Chloride () 5 - 30 ml IV UD PRN PRN Reason: SALINE FLUSH Last Admin: 09/18/18 23:15 Dose: 30 ml Thiamine HCl (Vitamin B1) 100 mg PO DAILYCM [facility] Last Admin: 09/27/18 08:40 Dose: 100 mg Vancomycin HCl () 125 mg PO Q6 [facility] Last Admin: 09/28/18 05:24 Dose: 125 mg Medical Necessity - Tobacco Use Smoking Status: Never smoker Tobacco Use: Chew Assessment/Plan All Active Problems Abnormal LFTs (Acute) Alcohol withdrawal (Acute) The patient is a 43 y/o M w/ PMHx: PVST s/p ablation, Tobacco use, Anxiety and Depression, EtOH Abuse who presents to the [facility] ED on 09/16/18 for requested alcohol detoxification noting consumption 3/4 L vodka daily since age 18 years old w/ admission complicated by severe withdrawals requiring ICU transfer, intubation transiently and eventually noted onset diarrhea. (1) Acute Hypoxic Respiratory Failure: Patient with notable agitation, aggressive sedative regimen necessitated, given severity of presentation patient following admission intubated, maintained in the ICU, all per family consent and request given severity of patient EtOH abuse history, successfully extubated and eventually transitioned out of the ICU. Given agitation, seroquel titrated with close QT monitoring. (2) Acute EtOH Withdrawal: Complicated admission, initially MS admission, transitioned to the ICU, intubated, precedex utilized, eventually extubated. Patient with ongoing intermittent hallucinations, some concern for underlying schizophrenia. Continue on [facility] service protocol as needed Seroquel, Catapres, Bentyl, Vistaril, IV fluids, IV antiemetics, Tylenol as needed for pain. Maintain on CIWA protocol. Given agitation, suspected underlying psychiatric disorder, possible schizophrenia, seroquel titrated with close QT monitoring. Crisis following, initially planned Psychiatric facility placement; however, patient improving, no SI or homicidal ideations upon their re-evaluation thus felt not appropriate for psychiatric facility placement. Patient amenable to placement in SNF, precertification pending. (3) Acute Clostridium Difficile Colitis: Prior history of hospitalization for withdrawal, no recent abx prior to current admission, patient had been wondering halls and was severely agitated prior to transition to the ICU, BP normalizing, now 8/10 day course oral vancomycin. Discontinued famotidine, hold on any re-addition or PPI usage. Patient has had firm stools, diarrhea resolved, discussed w/ Infection Control and patient appropriate for removal of contact precautions. (4) History of PSVT: s/p ablation, stable, maintained on oral metoprolol. (5) Tobacco Abuse: Encouraged cessation, inpatient consultation per RT, NR if desired. (6) DVT Prophylaxis: SCDs, lovenox. Code Visit Inpatient E&M: 60753 Subs Hosp L2
--- NOTE | 2018-09-28 08:03 | PN_ITS ---
Subjective: Patient with no acute events overnight per self and per nursing report. Patient orientation has remained x3 and patient appears less agitated with continued oral Seroquel regimen. Patient denying any homicidal or suicidal ideations at this time. Patient reevaluation per crisis given clearance for discontinuation of contact precautions and isolation precautions. Given patient improvement fill presentation likely secondary to alcoholism and given no suicidal or homicidal ideations patient not appropriate for psychiatric facility at this oleg e. Patient is amenable to [facility] facility placement given severity of debilities with precertification pending. Patient notes that stools have been formed and denies any further diarrhea. He denies any abdominal discomfort associated as well. Patient tolerating diet well. Patient denies fevers, chills, nausea, emesis, abdominal pain, chest pain or dyspnea. Objective: Physical Examination: General: awake, alert, oriented x 3 and cooperative, seated upright in bed in no apparent distress, no marked agitation. Skin: normal color, turgor, no icterus, cyanosis. HEENT: AT/NC, EOMI, PERRLA, MMM. Lungs: CTA bilaterally, moderate effort, mild decrease BL bases, no rales, ronchi or wheezing. Heart: Regular rate and rhythm; no gallop, rub audible. Abdomen: soft, NTTP, ND, normal BS. Extremities: no cyanosis, clubbing, or edema. Neurological: patient awake, alert, oriented x 3; cognitive function improved; pupils equally reactive to light and accomodation; cranial nerves II-XII grossly normal, moving all 4 extremities, no focal deficits, strength moderately globally decreased, remains very spontaneous, fall risk. Psychiatric: affect appears normal, currently does not appear agitated, no acute evidence of depressive or anxiety feelings, denies any SI/homicidal ideation. Vitals/I&O's: Vital Signs Temp Pulse Resp BP Pulse Ox 99.0 F 84 16 137/96 H 94 09/28/18 07:35 09/28/18 07:35 09/28/18 07:35 09/28/18 07:35 09/28/18 07:35 Oxygen Flow Rate (L/min) 2 Oxygen Delivery Method Room Air Weight: 181 lb 7.047 oz Body Mass Index (BMI) 25.5 Intake and Output for Last 24 Hours 09/26/18 09/27/18 09/28/18 23:59 23:59 23:59 Intake Total 1519 / 1519 1979 240 / 240 Output Total 500 / 500 Balance 1019 / 1019 1979 240 / 240 Current Medications Acetaminophen (Tylenol) 500 mg PO Q4H PRN PRN PRN Reason: Temp > 100.4 F Albuterol Sulfate (Ventolin Aerosols) 2.5 mg INHALATION Q2H PRN PRN PRN Reason: dyspnea, wheezing Bisacodyl (Dulcolax) 10 mg RECTAL DAILY PRN PRN Reason: Constipation Chlordiazepoxide (Librium) 50 mg PO TID PRN PRN PRN Reason: Alcohol Withdrawal Last Admin: 09/27/18 01:19 Dose: 50 mg Enoxaparin Sodium (Lovenox) 40 mg SC DAILY@0600 [facility] Last Admin: 09/28/18 05:23 Dose: Not Given Famotidine (Pepcid) 20 mg PO BID [facility] Last Admin: 09/27/18 20:57 Dose: 20 mg [facility] Last Admin: 09/27/18 08:40 Dose: 1 mg Hydralazine HCl (Apresoline Iv) 10 mg IV Q4H PRN PRN PRN Reason: hypertension Last Admin: 09/26/18 22:24 Dose: 10 mg Ibuprofen (Motrin) 600 mg PO Q8H PRN PRN PRN Reason: Mild-Moderate Pain (1-5/10) Last Admin: 09/24/18 05:52 Dose: 600 mg Metoprolol Tartrate (Lopressor (Beta Romel)) 100 mg PO BID [facility] Last Admin: 09/27/18 20:57 Dose: 100 mg Multivitamins (Multivitamin) [facility] Last Admin: 09/27/18 08:40 Dose: 1 tablet Nutritional Formula (Lactose Free) (Ensure Enlive) 120 ml PO 4X/DAY [facility] Last Admin: 09/27/18 18:48 Dose: Not Given Ondansetron HCl (Zofran Odt) 4 mg PO Q6H PRN PRN PRN Reason: NAUSEA Last Admin: 09/23/18 10:32 Dose: 4 mg Quetiapine Fumarate (Seroquel) 200 mg PO BID [facility] Last Admin: 09/27/18 20:57 Dose: 200 mg Sodium Chloride () 5 - 30 ml IV UD PRN PRN Reason: SALINE FLUSH Last Admin: 09/26/18 22:25 Dose: 10 ml Sodium Chloride () 5 - 30 ml IV UD PRN PRN Reason: SALINE FLUSH Last Admin: 09/18/18 23:15 Dose: 30 ml Thiamine HCl (Vitamin B1) 100 mg PO DAILYCM [facility] Last Admin: 09/27/18 08:40 Dose: 100 mg Vancomycin HCl () 125 mg PO Q6 [facility] Last Admin: 09/28/18 05:24 Dose: 125 mg Medical Necessity - Tobacco Use Smoking Status: Never smoker Tobacco Use: Chew Assessment/Plan All Active Problems Abnormal LFTs (Acute) Alcohol withdrawal (Acute) The patient is a 43 y/o M w/ PMHx: PVST s/p ablation, Tobacco use, Anxiety and Depression, EtOH Abuse who presents to the [facility] ED on 09/16/18 for requested alcohol detoxification noting consumption 3/4 L vodka daily since age 18 years old w/ admission complicated by severe withdrawals requiring ICU transfer, intubation transiently and eventually noted onset diarrhea. (1) Acute Hypoxic Respiratory Failure: Patient with notable agitation, aggressive sedative regimen necessitated, given severity of presentation patient following admission intubated, maintained in the ICU, all per family consent and request given severity of patient EtOH abuse history, successfully extubated and eventually transitioned out of the ICU. Given agitation, seroquel titrated with close QT monitoring. (2) Acute EtOH Withdrawal: Complicated admission, initially MS admission, transitioned to the ICU, intubated, precedex utilized, eventually extubated. Patient with ongoing intermittent hallucinations, some concern for underlying schizophrenia. Continue on [facility] service protocol as needed Seroquel, Catapres, Bentyl, Vistaril, IV fluids, IV antiemetics, Tylenol as needed for pain. Maintain on CIWA protocol. Given agitation, suspected underlying psychiatric disorder, possible schizophrenia, seroquel titrated with close QT monitoring. Crisis following, initially planned Psychiatric facility placement; however, patient improving, no SI or homicidal ideations upon their re- evaluation thus felt not appropriate for psychiatric facility placement. Patient amenable to placement in SNF, precertification pending. (3) Acute Clostridium Difficile Colitis: Prior history of hospitalization for withdrawal, no recent abx prior to current admission, patient had been wondering halls and was severely agitated prior to transition to the ICU, BP normalizing, now 8/10 day course oral vancomycin. Discontinued famotidine, hold on any re- addition or PPI usage. Patient has had firm stools, diarrhea resolved, discussed w/ Infection Control and patient appropriate for removal of contact precautions. (4) History of PSVT: s/p ablation, stable, maintained on oral metoprolol. (5) Tobacco Abuse: Encouraged cessation, inpatient consultation per RT, NR if desired. (6) DVT Prophylaxis: SCDs, lovenox. Code Visit Inpatient E&M: 98057 Subs Hosp L2
[2018-09-28] MEDS: Multivitamins,Therapeutic Tablet 1 TABLET PO (08:33)
[2018-09-28] MEDS: Thiamine Hydrochloride 100 MG Tablet PO (08:33)
[2018-09-28] MEDS: Folic Acid 1 MG Tablet PO (08:33)
[2018-09-28 09:07] VITALS: PULSE 84
[2018-09-28] MEDS: Metoprolol Tartrate 100 MG Tablet PO ×2 (09:07→21:09)
[2018-09-28] MEDS: QUEtiapine 100 MG Tablet 200 MG PO ×2 (09:08→21:09)
--- NOTE | 2018-09-28 10:05 | NURSING ---
pt up to bathroom with sba. pt voided and had soft, formed bm.
--- NOTE | 2018-09-28 11:10 | CASEMGMT ---
Social Work Note SW received call from Kassie Bain stating José Miguel Horne from [facility] called and informed her that [facility] is unable to accept pt as they feel pt is has alcoholic delirium and not psychiatric problems. SW updated physician of this. Per physician pt is not currently withdrawing from alcohol, is out of CDIFF precautions and has underlying psychiatric problems. YOLIS placed a call to José Miguel Horne at [facility] and informed him of above information. Per José Miguel Horne he will reevaluate pt for psych placement. YOLIS updated physician of this and Charge Nurse Alexia. Plan: Crisis to evaluate pt again Johanne Curiel LIGHTING FIXTURE INSTALLER, SENIOR MARKETING ENGINEER
[2018-09-28 13:47] VITALS: BP 103/71; PULSE 88; RESP 16; TEMP 36.8; O2SAT 93
--- NOTE | 2018-09-28 14:21 | CHAPLAIN ---
Type of Pastoral Visit ___ Initial Visit _x__ Follow-up Visit ___ On-call Visit ___ General Patient Visit ___ Spiritual Assessment ___ Family Conference ___ Bereavement ___ Rapid Response ___ Code Blue ___ Other (describe below) Pastoral Care Referral From _x__ Patient ___ Family ___ Nurse ___ Physician ___ Correspondence School Instructor ___ Cane Weigher ___ Other (describe below) Sacrament/Intervention _x__ Active listening ___ Anointing ___ Druze ___ Bereavement ___ Communion ___ Dariana exploration ___ _x__ Life review _x__ Prayer ___ Reconciliation ___ Sacrament of Sick _x__ Supportive presence ___ Wedding ___ Other (describe below) Pastoral Comments
--- NOTE | 2018-09-28 14:31 | NURSING ---
PT HAS BEEN GOING OFF ON DIFFERENT TANGENTS AFTER SEROQUEL WAS GIVEN ADAM TORRES. PT THINKS THAT HE IS IN [facility] AND HAS NO IDEA OF MONTH. PT CAN HOLD A CONVERSATION FOR A FEW MINUTES, BUT THEN STARTS TALKING ABOUT SOMETHING TOTALLY OFF-SUBJECT.
--- NOTE | 2018-09-28 16:51 | CASEMGMT ---
Social Work Note SW received call from José Miguel Horne with [facility] stating pt doesn't meet criteria for psych placement at this time. Per José Miguel, pt denied hallucination, denies suicidal thoughts/plans/ideations and pt is more alert and orientated. YOLIS updated Alia Goodwin with [facility] of above information. Per Alia Goodwin she will meet with pt and provide pt with outpatient counseling resources. Alia Goodwin states pt has an appointment with [facility] on October 05 at 9:30am. YOLIS met with pt to confirm discharge plans. Per RN Note, pt still has some confusion. Pt currently has a sitter. SW introduced self and role at [facility]. Pt is alert, able to answer questions appropriately. Pt states that he remembers Alia Goodwin from [place] coming to talk with him. Pt states that he would be agreeable to SNF at discharge. Pt has no preference for SNF, but states he would like a SNF in [facility]. SW explained referral process and pt would need pre-cert. Pt states understanding. YOLIS placed a call to [facility] in [place], [place]. YOLIS spoke with Sobeida in admissions. Per Sobeida she will review referral. Sobeida provided fax number [phone]. YOLIS faxed referral to Sobeida. YOLIS updated Charge Nurse Alexia and physician of plan for pt to go to SNF pending acceptance and pre-cert. Plan: SNF pending acceptance and pre-cert Johanne Curiel KITCHEN SUPERVISOR, AUTOCAD DRAFTSMAN
--- NOTE | 2018-09-28 18:12 | NURSING ---
ELLIS FROM [facility], HERE TO SEE THE PATIENT. DISCUSSED OPTIONS OF PLACEMENT.
[2018-09-28 19:20] VITALS: BP 145/95; PULSE 81; RESP 20; TEMP 36.8; O2SAT 95
[2018-09-28 21:09] VITALS: BP 145/95; PULSE 81
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
[2018-09-29] MEDS: Haloperidol Lactate 5 MG/ML Vial IV (00:50)
[2018-09-29] MEDS: 0.9% NaCl Peripheral Flush Adult/Peds IV (00:50)
[2018-09-29 01:46] VITALS: BP 127/83; PULSE 93; RESP 18; TEMP 36.8; O2SAT 95
[2018-09-29] MEDS: Enoxaparin 40 MG/0.4 ML Syringe SC (06:43)
[2018-09-29 08:35] VITALS: BP 139/95; PULSE 77; RESP 16; TEMP 36.7; O2SAT 96
[2018-09-29] MEDS: Multivitamins,Therapeutic Tablet 1 TABLET PO (08:42)
[2018-09-29] MEDS: Folic Acid 1 MG Tablet PO (08:42)
[2018-09-29] MEDS: Thiamine Hydrochloride 100 MG Tablet PO (08:42)
--- NOTE | 2018-09-29 09:02 | CASEMGMT ---
Social Work Note SW received call from Sobeida at [facility] stating Salvador, Clinical Liaison, did an onsight visit yesterday and is able to accept pt. Per Sobeida she will submit for pre-cert. Sobeida states she will email their company in [place] they use to submit for pre-cert as she doesn't do the pre-cert at her facility. Plan: [facility] pending pre-cert Johanne Curiel ED MANAGER, GROCERY CASHIER
[2018-09-29 09:26] VITALS: PULSE 77
[2018-09-29] MEDS: QUEtiapine 100 MG Tablet 200 MG PO ×2 (09:26→22:19)
[2018-09-29] MEDS: Metoprolol Tartrate 100 MG Tablet PO ×2 (09:26→22:19)
--- NOTE | 2018-09-29 11:08 | PCA ---
in with pt
[2018-09-29 13:48] VITALS: BP 114/84; PULSE 75; RESP 16; TEMP 36.8; O2SAT 96
--- NOTE | 2018-09-29 14:03 | PCM.PN.HOSP ---
Subjective: Patient overnight with episodes of increasing agitation and hostile behavior around midnight, having conversations with himself and other people in the room, hitting himself with closed fists on the top of his thighs with need for IV Haldol. Discussed this presentation at length with patient and he does have some recollection. He states that he is always had issues with sudden anger bursts. He does admit to depression and denies any happy manic episodes but discussed at length and noted to him that suspect he may have underlying psychiatric issue. Given ongoing concern for underlying psychiatric disorder in need of acute inpatient treatment and severity of these events discussed need for repeat crisis evaluation for psychiatric inpatient facility placement which he following lengthy discussions was amenable. Discussed the fact that he is a very intelligent individual and suspect that when they have been here prior he is tailored his behavior to which he admits but states he would like to be able to get back to his life as soon as possible. He does state currently that he feels as though he could demonstrate risky computer behavior given his ability to hack and his current status. Patient remains abdominal discomfort free and stools remain formed. Patient denies fevers, chills, nausea, emesis, chest pain or dyspnea. Objective: Physical Examination: General: awake, alert, oriented currently to self, some recent events, year but then would also make nonsensical statements, remains cooperative, seated upright in bed in no apparent distress currently, does admit to severe agitation overnight, does per discussions appear to have recollection of these events, understands Skin: normal color, turgor, no icterus, cyanosis. HEENT: AT/NC, EOMI, PERRLA, MMM. Lungs: CTA bilaterally, moderate effort, mild decrease BL bases, no rales, ronchi or wheezing. Heart: Regular rate and rhythm; no gallop, rub audible. Abdomen: soft, NTTP, ND, normal BS. Extremities: no cyanosis, clubbing, or edema. Neurological: patient awake, alert, oriented as noted; cognitive function improved but still strong suspicion of underlying untreated psychiatric disease, patient admits to improving his behavior for crisis evaluation; pupils equally reactive to light and accomodation; cranial nerves II-XII grossly normal, moving all 4 extremities, no focal deficits, strength moderately globally decreased. Psychiatric: affect appears intermittent agitated, quick movements, still concern for intermittent nonsensical statesments, no current anxiety or depression, denies any SI/homicidal ideation but then admits that he was hitting himself the evening prior as it was better than hurting someone else. Vitals/I&O's: Vital Signs Temp Pulse Resp BP Pulse Ox 98.3 F 75 16 114/84 H 96 09/29/18 13:48 09/29/18 13:48 09/29/18 13:48 09/29/18 13:48 09/29/18 13:48 Oxygen Flow Rate (L/min) 2 Oxygen Delivery Method Room Air Weight: 181 lb 7.047 oz Body Mass Index (BMI) 25.5 Intake and Output for Last 24 Hours 09/27/18 09/28/18 09/29/18 23:59 23:59 23:59 Intake Total 1979 240 / 240 480 / 480 Output Total 350 / 350 Balance 1979 240 / 240 130 / 130 Current Medications Acetaminophen (Tylenol) 500 mg PO Q4H PRN PRN PRN Reason: Temp > 100.4 F Albuterol Sulfate (Ventolin Aerosols) 2.5 mg INHALATION Q2H PRN PRN PRN Reason: dyspnea, wheezing Bisacodyl (Dulcolax) 10 mg RECTAL DAILY PRN PRN Reason: Constipation Chlordiazepoxide (Librium) 50 mg PO TID PRN PRN PRN Reason: Alcohol Withdrawal Last Admin: 09/27/18 01:19 Dose: 50 mg Enoxaparin Sodium (Lovenox) 40 mg SC DAILY@0600 [facility] Last Admin: 09/29/18 06:43 Dose: 40 mg [facility]) [facility] Last Admin: 09/29/18 08:42 Dose: 1 mg Hydralazine HCl (Apresoline Iv) 10 mg IV Q4H PRN PRN PRN Reason: hypertension Last Admin: 09/26/18 22:24 Dose: 10 mg Ibuprofen (Motrin) 600 mg PO Q8H PRN PRN PRN Reason: Mild-Moderate Pain (1-5/10) Last Admin: 09/24/18 05:52 Dose: 600 mg Metoprolol Tartrate (Lopressor (Beta Romel)) 100 mg PO BID [facility] Last Admin: 09/29/18 09:26 Dose: 100 mg Multivitamins (Multivitamin) [facility] Last Admin: 09/29/18 08:42 Dose: 1 tablet Nutritional Formula (Lactose Free) (Ensure Enlive) 120 ml PO 4X/DAY [facility] Last Admin: 09/29/18 13:47 Dose: 120 ml Ondansetron HCl (Zofran Odt) 4 mg PO Q6H PRN PRN PRN Reason: NAUSEA Last Admin: 09/23/18 10:32 Dose: 4 mg Quetiapine Fumarate (Seroquel) 200 mg PO BID [facility] Last Admin: 09/29/18 09:26 Dose: 200 mg Sodium Chloride () 5 - 30 ml IV UD PRN PRN Reason: SALINE FLUSH Last Admin: 09/29/18 00:50 Dose: 10 ml Sodium Chloride () 5 - 30 ml IV UD PRN PRN Reason: SALINE FLUSH Last Admin: 09/18/18 23:15 Dose: 30 ml Thiamine HCl (Vitamin B1) [facility] Last Admin: 09/29/18 08:42 Dose: 100 mg Vancomycin HCl () 125 mg PO Q6 [facility] Last Admin: 09/29/18 11:26 Dose: 125 mg Medical Necessity - Tobacco Use Smoking Status: Never smoker Tobacco Use: Chew Assessment/Plan All Active Problems Abnormal LFTs (Acute) Alcohol withdrawal (Acute) The patient is a 43 y/o M w/ PMHx: PVST s/p ablation, Tobacco use, Anxiety and Depression, EtOH Abuse who presents to [facility] ED on 09/16/18 for requested alcohol detoxification noting consumption 3/4 L vodka daily since age 18 years old w/ admission complicated by severe withdrawals requiring ICU transfer, intubation transiently and eventually noted onset diarrhea. (1) Acute Hypoxic Respiratory Failure: Patient with notable agitation, aggressive sedative regimen necessitated, given severity of presentation patient following admission intubated, maintained in the ICU, all per family consent and request given severity of patient EtOH abuse history, successfully extubated and eventually transitioned out of the ICU. Given agitation, seroquel titrated with initially close QT monitoring which remained stable however, still having notable psychiatric behavioral issues despite this regimen, requiring overnight 12/3 haldol regimen. (2) Acute EtOH Withdrawal: Complicated admission, initially MS admission, transitioned to the ICU, intubated, precedex utilized, eventually extubated. Patient with ongoing intermittent hallucinations, some concern for underlying schizophrenia. Continue on [facility] [employer] service protocol as needed Seroquel, Catapres, Bentyl, Vistaril, IV fluids, IV antiemetics, Tylenol as needed for pain. Maintain on CIWA protocol. Given agitation, suspected underlying psychiatric disorder, possible schizophrenia, seroquel titrated with close QT monitoring. Crisis following, initially planned Psychiatric facility placement; however, patient 09/28/18 was deemed improved from their staff and felt appropriate for home discharge. Initially attempted SNF placement; however, ongoing notable psychiatric behavioral concerns with Crisis recalled. Patient has suspected underlying psychiatric disorders and is felt a danger to himself and others and appropriate for psychiatric inpatient evaluation and treatment. (3) Acute Clostridium Difficile Colitis: Prior history of hospitalization for withdrawal, no recent abx prior to current admission, patient had been wondering halls and was severely agitated prior to transition to the ICU, BP normalizing, now 9/10 day course oral vancomycin. Discontinued famotidine, hold on any re-addition or PPI usage. Patient has had firm stools, diarrhea remains completely resolved, discussed w/ Infection Control and patient appropriate for removal of contact precautions 09/28/18. (4) Suspected Underlying Psychiatric Disorder, Suspect Bipolar Disorder: Very intermittent high energy, agitation as well as admission depressive periods, notes that this has been chcf, also admits to severe reactions to triggers, often very violent in nature which he immediately regrets but is unable to control. Overnight again, hallucinating, talking to people in the room, hitting himself stating it is better than hurting someone else. This patient is a risk to himself and others and a strongly appropriate patient for inpatient psychiatric evaluation and treatment. Crisis recalled for re-evaluation as not appropriate for home or SNF. (5) History of PSVT: s/p ablation, stable, maintained on oral metoprolol. (6) Tobacco Abuse: Encouraged cessation, inpatient consultation per RT, NR if desired. (7) DVT Prophylaxis: SCDs, lovenox. Code Visit Inpatient E&M: 09172 Subs Hosp L3
--- NOTE | 2018-09-29 14:10 | CASEMGMT ---
Received a phone call from Elena at [facility] wanting to know the last time patient had a sitter. Per Elena, [facility] policy is that a patient has to be without a sitter for 24 hours before [facility] will approve d/c to SNF. Called and spoke with charge nurse, Jennifer. Per Jennifer, patient had someone 1:1 on mine shifter ending at 0700 today. Called and spoke with Elena updating her of same. Alisa Jerry LPN Clinical Support
--- NOTE | 2018-09-29 14:11 | PN_ITS ---
Subjective: Patient overnight with episodes of increasing agitation and hostile behavior around midnight, having conversations with himself and other people in the room, hitting himself with closed fists on the top of his thighs with need for IV Haldol. Discussed this presentation at length with patient and he does have some recollection. He states that he is always had issues with sudden anger bursts. He does admit to depression and denies any happy manic episodes but discussed at length and noted to him that suspect he may have underlying psychiatric issue. Given ongoing concern for underlying psychiatric disorder in need of acute inpatient treatment and severity of these events discussed need for repeat crisis evaluation for psychiatric inpatient facility placement which he following lengthy discussions was amenable. Discussed the fact that he is a very intelligent individual and suspect that when they have been here prior he is tailored his behavior to which he admits but states he would like to be able to get back to his life as soon as possible. He does state currently that he feels as though he could demonstrate risky computer behavior given his ability to hack and his current status. Patient remains abdominal discomfort free and stools remain formed. Patient denies fevers, chills, nausea, emesis, chest pain or dyspnea. Objective: Physical Examination: General: awake, alert, oriented currently to self, some recent events, year but then would also make nonsensical statements, remains cooperative, seated upright in bed in no apparent distress currently, does admit to severe agitation overnight, does per discussions appear to have recollection of these events, understands Skin: normal color, turgor, no icterus, cyanosis. HEENT: AT/NC, EOMI, PERRLA, MMM. Lungs: CTA bilaterally, moderate effort, mild decrease BL bases, no rales, ronchi or wheezing. Heart: Regular rate and rhythm; no gallop, rub audible. Abdomen: soft, NTTP, ND, normal BS. Extremities: no cyanosis, clubbing, or edema. Neurological: patient awake, alert, oriented as noted; cognitive function improved but still strong suspicion of underlying untreated psychiatric disease, patient admits to improving his behavior for crisis evaluation; pupils equally reactive to light and accomodation; cranial nerves II-XII grossly normal, moving all 4 extremities, no focal deficits, strength moderately globally decreased. Psychiatric: affect appears intermittent agitated, quick movements, still concern for intermittent nonsensical statesments, no current anxiety or depression, denies any SI/homicidal ideation but then admits that he was hitting himself the evening prior as it was better than hurting someone else. Vitals/I&O's: Vital Signs Temp Pulse Resp BP Pulse Ox 98.3 F 75 16 114/84 H 96 09/29/18 13:48 09/29/18 13:48 09/29/18 13:48 09/29/18 13:48 09/29/18 13:48 Oxygen Flow Rate (L/min) 2 Oxygen Delivery Method Room Air Weight: 181 lb 7.047 oz Body Mass Index (BMI) 25.5 Intake and Output for Last 24 Hours 09/27/18 09/28/18 09/29/18 23:59 23:59 23:59 Intake Total 1979 240 / 240 480 / 480 Output Total 350 / 350 Balance 1979 240 / 240 130 / 130 Current Medications Acetaminophen (Tylenol) 500 mg PO Q4H PRN PRN PRN Reason: Temp > 100.4 F Albuterol Sulfate (Ventolin Aerosols) 2.5 mg INHALATION Q2H PRN PRN PRN Reason: dyspnea, wheezing Bisacodyl (Dulcolax) 10 mg RECTAL DAILY PRN PRN Reason: Constipation Chlordiazepoxide (Librium) 50 mg PO TID PRN PRN PRN Reason: Alcohol Withdrawal Last Admin: 09/27/18 01:19 Dose: 50 mg Enoxaparin Sodium (Lovenox) 40 mg SC DAILY@0600 [facility] Last Admin: 09/29/18 06:43 Dose: 40 mg Folic [facility] ([facility]) [facility] Last Admin: 09/29/18 08:42 Dose: 1 mg Hydralazine HCl (Apresoline Iv) 10 mg IV Q4H PRN PRN PRN Reason: hypertension Last Admin: 09/26/18 22:24 Dose: 10 mg Ibuprofen (Motrin) 600 mg PO Q8H PRN PRN PRN Reason: Mild-Moderate Pain (1-5/10) Last Admin: 09/24/18 05:52 Dose: 600 mg Metoprolol Tartrate (Lopressor (Beta Romel)) 100 mg PO BID [facility] Last Admin: 09/29/18 09:26 Dose: 100 mg Multivitamins (Multivitamin) [facility] Last Admin: 09/29/18 08:42 Dose: 1 tablet Nutritional Formula (Lactose Free) (Ensure Enlive) 120 ml PO 4X/DAY [facility] Last Admin: 09/29/18 13:47 Dose: 120 ml Ondansetron HCl (Zofran Odt) 4 mg PO Q6H PRN PRN PRN Reason: NAUSEA Last Admin: 09/23/18 10:32 Dose: 4 mg Quetiapine Fumarate (Seroquel) 200 mg PO BID [facility] Last Admin: 09/29/18 09:26 Dose: 200 mg Sodium Chloride () 5 - 30 ml IV UD PRN PRN Reason: SALINE FLUSH Last Admin: 09/29/18 00:50 Dose: 10 ml Sodium Chloride () 5 - 30 ml IV UD PRN PRN Reason: SALINE FLUSH Last Admin: 09/18/18 23:15 Dose: 30 ml Thiamine HCl (Vitamin B1) [facility] Last Admin: 09/29/18 08:42 Dose: 100 mg Vancomycin HCl () 125 mg PO Q6 [facility] Last Admin: 09/29/18 11:26 Dose: 125 mg Medical Necessity - Tobacco Use Smoking Status: Never smoker Tobacco Use: Chew Assessment/Plan All Active Problems Abnormal LFTs (Acute) Alcohol withdrawal (Acute) The patient is a 43 y/o M w/ PMHx: PVST s/p ablation, Tobacco use, Anxiety and Depression, EtOH Abuse who presents to the [facility] ED on 09/16/18 for requested alcohol detoxification noting consumption 3/4 L vodka daily since age 18 years old w/ admission complicated by severe withdrawals requiring ICU transfer, intubation transiently and eventually noted onset diarrhea. (1) Acute Hypoxic Respiratory Failure: Patient with notable agitation, aggressive sedative regimen necessitated, given severity of presentation patient following admission intubated, maintained in the ICU, all per family consent and request given severity of patient EtOH abuse history, successfully extubated and eventually transitioned out of the ICU. Given agitation, seroquel titrated with initially close QT monitoring which remained stable however, still having notable psychiatric behavioral issues despite this regimen, requiring overnight 12/3 haldol regimen. (2) Acute EtOH Withdrawal: Complicated admission, initially MS admission, transitioned to the ICU, intubated, precedex utilized, eventually extubated. Patient with ongoing intermittent hallucinations, some concern for underlying schizophrenia. Continue on [facility] service protocol as needed Seroquel, Catapres, Bentyl, Vistaril, IV fluids, IV antiemetics, Tylenol as needed for pain. Maintain on CIWA protocol. Given agitation, suspected underlying psychiatric disorder, possible schizophrenia, seroquel titrated with close QT monitoring. Crisis following, initially planned Psychiatric facility placement; however, patient 09/28/18 was deemed improved from their staff and felt appr opriate for home discharge. Initially attempted SNF placement; however, ongoing notable psychiatric behavioral concerns with Crisis recalled. Patient has suspected underlying psychiatric disorders and is felt a danger to himself and others and appropriate for psychiatric inpatient evaluation and treatment. (3) Acute Clostridium Difficile Colitis: Prior history of hospitalization for withdrawal, no recent abx prior to current admission, patient had been wondering halls and was severely agitated prior to transition to the ICU, BP normalizing, now 9/10 day course oral vancomycin. Discontinued famotidine, hold on any re- addition or PPI usage. Patient has had firm stools, diarrhea remains completely resolved, discussed w/ Infection Control and patient appropriate for removal of contact precautions 09/28/18. (4) Suspected Underlying Psychiatric Disorder, Suspect Bipolar Disorder: Very intermittent high energy, agitation as well as admission depressive periods, notes that this has been fci, also admits to severe reactions to triggers, often very violent in nature which he immediately regrets but is unable to control. Overnight again, hallucinating, talking to people in the room, hitting himself stating it is better than hurting someone else. This patient is a risk to himself and others and a strongly appropriate patient for inpatient psychiatric evaluation and treatment. Crisis recalled for re-evaluation as not appropriate for home or SNF. (5) History of PSVT: s/p ablation, stable, maintained on oral metoprolol. (6) Tobacco Abuse: Encouraged cessation, inpatient consultation per RT, NR if desired. (7) DVT Prophylaxis: SCDs, lovenox. Code Visit Inpatient E&M: 34005 Subs Hosp L3
--- NOTE | 2018-09-29 15:49 | CASEMGMT ---
Social Work Note Physician would like crisis to reevaluate pt. YOLIS placed a call to [facility] and left a message for crisis to reevaluate pt. YOLIS updated physician that crisis will reevaluate pt. YOLIS received message from Elena with [facility] requesting this worker to call her back. YOLIS placed a call to Elena with [facility]. Jarvis Jerry, quality management also spoke with Elena at [facility]. Per Elena her questions were answered by Jarvis Jerry. Elena states that since pt had a sitter this morning, pt will need to not have a sitter for 24 hours before they approve for SNF. Per Elena she will reevaluate pt's case tomorrow. Plan: Crisis to reevaluate pt to determine if pt needs psych hospitalization vs. SNF. [facility] to reevaluate pt tomorrow for SNF placement if pt doesn't need psych hospitalization Johanne Curiel MOTOR VEHICLES SUPERVISOR, CLUB WAITER/WAITRESS
--- NOTE | 2018-09-29 15:54 | CASEMGMT ---
Social Work Note SW placed a call to [facility] to determine when crisis will evaluate pt. Per [facility], crisis is at ER at [facility] evaluating pt and then will evaluate pt. Charge Nurse updated Johanne Curiel MSW, GANG DRILL OPERATOR
--- NOTE | 2018-09-29 17:57 | DS.PCM_ITS ---
Discharge Date and Diagnosis Date of Admission: 09/16/18 Date of Discharge: 09/29/18 - Primary Discharge Diagnosis (1) Acute Hypoxic Respiratory Failure secondary to Sedative Medications w/ Acute EtOH Withdrawal, Resolved (2) Acute EtOH Withdrawal, Complicated, Resolved (3) Acute Clostridium Difficile Colitis (upon discharge day 9/10 to complete oral vancomycin, normal stools, off precautions/isolation per Infection control) (4) Suspected Underlying Psychiatric Disorder, Suspect Bipolar Disorder, Uncontrolled (5) History of PSVT s/p ablation Remotely (6) Tobacco Abuse - Secondary Discharge Diagnosis Chronic Problems Alcoholism (Chronic) Anxiety (Chronic) Hospital Course and Treatment Consultations 09/25/18 10:18 Consult: Mental Health/Crisis Routine Reason for consult?: crisis to see for possible psych placement Date Notified:: 09/25/18 Time notified:: 10:15 Dr. Bryan/Dr. Scherer ICU/Pulmonary Operations: None Procedures: EKG, Intubation Summary of Care Provided: The patient is a 43 y/o M w/ PMHx: PVST s/p ablation, Tobacco use, Anxiety and Depression, EtOH Abuse who presented to the [facility] ED on 09/16/18 for requested alcohol detoxification noting consumption 3/4 L vodka daily since age 18 years old. Patient with notable agitation following initial routine treatment for acute EtOH withdrawal, aggressive sedative regimen necessitated, given severity of presentation patient following admission intubated, maintained in the ICU, all per family consent and request given severity of patient EtOH abuse history, successfully extubated and eventually transitioned out of the ICU. Patient successfully treated for acute EtOH withdrawal with ativan, librium and while in the ICU precedex utilized. Additional patient maintained on CIWA protocol. Given agitation, seroquel titrated with initially close QT monitoring which remained stable however with ongoing notable psychiatric concerns, suspected secondary to underlying, untreated Bipolar Disorder. During admission patient with onset diarrhea, no recent abx prior to current admission, patient had been wondering halls and was severely agitated prior to transition to the ICU and intubation with Acute EtOH Withdrawal, upon discharge completed day 9/10 day course oral vancomycin. Discontinued famotidine, and strong recommendation to hold on any re-addition of H2B or PPI usage. Patient resolution of diarrhea, ongoing routine normal firm stools, discussed w/ Infection Control and patient appropriate for removal of contact precautions. 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 - Physical Exam Vital Signs Temp Pulse Resp BP Pulse Ox 98.3 F 75 16 114/84 H 96 09/29/18 13:48 09/29/18 13:48 09/29/18 13:48 09/29/18 13:48 09/29/18 13:48 Oxygen Flow Rate (L/min) 2 Oxygen Delivery Method Room Air Weight: 181 lb 7.047 oz Body Mass Index (BMI) 25.5 Intake and Output for Last 24 Hours 09/27/18 09/28/18 09/29/18 23:59 23:59 23:59 Intake Total 1979 240 / 240 480 / 480 Output Total 350 / 350 Balance 1979 240 / 240 130 / 130 Microbiology Past 72 Hours 09/21/18 16:15 C. difficile DNA Amplification - Final Stool Toxigenic C. difficile DNA Home Medications: Medications to take at Discharge Omeprazole [Prilosec] 20 mg PO DAILY 09/16/18 Ondansetron HCl [Zofran] 4 mg PO Q8H PRN PRN 09/16/18 Primary Care Physician: Zachary Mcclendon [Primary Care Provider] - Disposition: Psych Hospital or Unit Minutes spent on discharge:: 45 Patient Condition:: Stable Medical Necessity - Tobacco Use Smoking Status: Never smoker Tobacco Use: Chew Meaningful Use Info Meaningful Use Diagnoses (Choose all that apply): None applicable Code Visit Inpatient E&M: 08233 Disch Hosp
[2018-09-29 20:14] VITALS: BP 129/82; PULSE 85; RESP 16; TEMP 36.5; O2SAT 94
--- NOTE | 2018-09-29 20:28 | NURSING ---
CALLED REFERRAL LINE TO SEE IF DECISION HAD BEEN MADE REGARDING PT TRANSFER TO [facility]. MARVEL AT REFERRAL LINE STATED THE DR HAD REVIEWED CASE AND WAS CONCERNED PT WAS STILL IN ETOH WITHDRAWAL. REMINDED FACILITY THAT PT HAS BEEN HERE AT [facility] SINCE 09/16/18 AND HAS HAD NO ALCOHOL TO DRINK, ALSO OTHER FACILITY WAS CONFUSED THAT PT WAS STILL IN ICU. UPDATED THEM THAT PT IS ON A MED SURG FLOOR. THIS RN JUST ROUNDED ON PT AND HE WAS FINISHING HIS DINNER AND WATCHING TV NO BEHAVIORS AT THIS TIME. THE REFERRAL LINE WILL UPDATE THE DR ON THE CORRECT INFORMATION AND CALL BACK WITH THE DECISION. PRIMARY RN NOTIFIED
--- NOTE | 2018-09-29 21:19 | NURSING ---
[facility] CALLED AND DR PASCUAL WILL ACCEPT PT ADULT SIDE RM 302 BED 2. CALL REPORT TO NURSE @ [phone] IN AM. LOCAL TRANSPORT WONT TRANSPORT UNTIL AM. [facility] WILL TIE TAPE MACHINE OPERATOR @ [phone] 09/30. PRIMARY RN & NURSING SUPV AWARE.
--- NOTE | 2018-09-29 22:18 | NURSING ---
SET OFF BED EXIT STAFF IN TO ASSIST, PT ASKED FOR OVERBED TABLE TO BE MOVED.THIS WAS COMPLETED. DENIES FURTHER NEEDS. WATCHING TV. BEDEXIT RESET
[2018-09-29 22:19] VITALS: BP 123/81; PULSE 83
[2018-09-30 02:15] VITALS: BP 110/66; PULSE 72; RESP 16; TEMP 36.9; O2SAT 95
[2018-09-30] MEDS: Enoxaparin 40 MG/0.4 ML Syringe SC (05:31)
--- NOTE | 2018-09-30 06:33 | NURSING ---
Called report to [facility] in [place], [place] and notified pt's mother because she is his contact for healthcare information that is the facility he is being placed in and transport is supposed to pick him up between 0700 and 0730 am on 09/30/18.
[2018-09-30 07:52] VITALS: BP 132/85; PULSE 78; RESP 18; TEMP 37.1; O2SAT 95
--- NOTE | 2018-09-30 08:02 | CASEMGMT ---
Returned call to Elena at [place]. She was wanting to know if patient had had a sitter at all throughout day/night. Informed Elena that per SW, patient did not have a sitter and was due to be transferred to [facility] in [place], [place]. Alisa Jerry LPN Clinical Support
--- NOTE | 2018-09-30 13:12 | CASEMGMT ---
Social Work Note YOLIS received message from pt's father John requesting call back with updates. YOLIS informed John that pt was evaluated by physician and was accepted into [facility] and was transported this morning. YOLIS informed John that this worker had left for the day before pt was accepted into [facility] and was transported before this worker came in for the day. YOLIS apologized to John that no staff had called him to update him. YOLIS provided John with [facility] number and advised him to call the facility for any additional questions about pt's current care. John states understanding. Johanne Curiel CITY BAILIFF, FINANCIAL SYSTEMS MANAGER
== END 2018-09-30 08:40 | DRG 775 ==
LOC: MS3 09-18 08:25 → ICU 09-18 21:06 → MS2 09-26 15:47
PROVIDERS: Internal Medicine; Internal Medicine Critical Care Medicine; Internal Medicine Infectious Disease; Admitting Provider Internal Medicine; Family Provider Internal Medicine; PCP Internal Medicine; Referring Provider Internal Medicine; Visit Provider Family Medicine
DX: F10.231 Alcohol dependence with withdrawal delirium (principal); J96.01 Acute respiratory failure with hypoxia; A04.72 Enterocolitis due to Clostridium difficile, not specified as recurrent; F41.9 Anxiety disorder, unspecified; F31.9 Bipolar disorder, unspecified; F99 Mental disorder, not otherwise specified; F17.220 Nicotine dependence, chewing tobacco, uncomplicated; K21.9 Gastro-esophageal reflux disease without esophagitis; R44.3 Hallucinations, unspecified; E87.6 Hypokalemia
CPT/HCPCS: 31500; 36415; 36600; 71045; 74018; 80048; 80053; 80307; 81001; 82140; 82550; 82803; 83735; 84100; 84478; 85025; 87493; 93005; 94002; 94003; 94660; 95831; 97110; 97162; 97165; 97530; 97535; 97802; 99251; 99406; J7030; J7050; J7120; A4216; G0463; J0330; J3486

== ENCOUNTER 2021-03-03 15:18 | Inpatient (IN) | payer MEDICAID, SELFPAY ==
[2021-03-03 15:18] VITALS: BP 148/89; PULSE 100; RESP 16; TEMP 36.9; O2SAT 93; BMI 26.5
--- NOTE | 2021-03-03 16:04 | CM.ED ---
Social Work Consult: Substance Abuse Telephone call to [facility], Yamilet. Yamilet updated on patient admission to [facility] Hanna Marie MSW, LORI-S
--- NOTE | 2021-03-03 16:20 | EKG12_ITS ---
Test Reason : Blood Pressure : / mmHG Vent. Rate : 095 BPM Atrial Rate : 095 BPM P-R Int : 140 ms QRS Dur : 084 ms QT Int : 370 ms P-R-T Axes : 027 044 040 degrees QTc Int : 464 ms Normal sinus rhythm Normal ECG Confirmed by LAUREN MOON, NAYELI ([id number]), photographic editor ANTONIO BOLES ([id number]) on 03/05/2021 1:15:09 PM Referred By: KATHARINA Confirmed By:NAYELI AGUILAR MD
--- NOTE | 2021-03-03 16:26 | EDS_ITS ---
HPI History of Present Illness Chief Complaint: Substance Abuse Narrative Narrative: 46-year-old male presenting for detox from alcohol. He states he normally drinks about a liter of vodka daily. Last drink was 830 this morning. Patient states that he has mild nausea and he has the shakes. He states that he is withdrawn before. He admits to history of withdrawal seizure. Patient states that in 2019 he had a fall with head injury and had intracranial hemorrhage and was placed on Keppra prophylactically after his surgery for intracranial hemorrhage. He states that he is no longer on Keppra and has been taken off. Patient states that he is detox multiple times. Patient also admits to esophageal varices. Patient has a cough but has had both of his Covid vaccines. He describes the cough is dry and he does not have any shortness of breath or chest pain. [facility] Medical History Alcohol abuse Depression GERD (gastroesophageal reflux disease) Traumatic brain injury Home Medications buspirone 7.5 mg PO BID 03/03/21 [History Last Taken Unknown] pantoprazole 40 mg PO DAILY 03/03/21 [History Last Taken Unknown] vitamin B complex 1 cap PO DAILY 03/03/21 [History Last Taken Unknown] Allergy/AdvReac Type Severity Reaction Status Date / Time celecoxib [From Celebrex] Allergy Hives Verified 03/03/21 15:19 Social History Smoking Status: Never smoker [facility] ED Constitutional Constitutional ED: Reports other Details: Feels shaky. ; Denies chills, fever(s) or sweats Eyes Eyes: Denies blurry vision or change in vision ENT ENT ED: Denies ear pain, rhinorrhea or sore throat Cardiovascular Cardiovascular: Denies chest pain, palpitations or racing heartbeat Respiratory/Chest Respiratory/Chest: Denies cough, dyspnea or sputum Gastrointestinal Gastrointestinal: Reports nausea; Denies abdominal pain, constipation, diarrhea or vomiting Genitourinary Genitourinary ED: Denies dysuria, hematuria or urinary frequency Musculoskeletal Musculoskeletal: Denies arthralgias, myalgias or neck pain Integumentary Denies abscess, Abrasions or rash Neurologic Neurologic: Denies headache(s), paresthesias or weakness Psychiatric Psychiatric: Denies anxiety, depression, suicidal ideation or suicidal thoughts Endocrine Endocrinology: Denies polydipsia or polyuria EXAM Physical Exam Const Vital Signs: 03/03/21 15:18 03/03/21 17:18 Temperature 98.5 F Temperature Source Temporal Pulse Rate 100 77 Respiratory Rate 16 15 Blood Pressure 148/89 H 130/80 H Blood Pressure Mean 108 96 Pulse Ox 93 94 Oxygen Delivery Method Room Air Room Air General Appearance ED: Negative for pallor HEENT Reports normocephalic, head/scalp atraumatic and moist mucous membranes atraumatic; Negative for trauma Eyes PERRL and EOMs intact bilaterally Neck no lymphadenopathy and supple Chest Wall inspection of chest normal and palpation of chest normal Resp normal respiratory effort and clear to auscultation bilaterally Auscultation: Negative for rales, rhonchi or wheezes Cardio regular rhythm Rate: tachycardic GI normal to inspection, nondistended, normoactive bowel sounds, soft to palpation, non-tender and non-distended Auscultation: normoactive bowel sounds Palpation: soft Narrative: Deferred Back/Spine no CVA tenderness General Back: Negative for CVA tenderness Cervical Spine: Negative for cervical spine tenderness Extremity normal to inspection General Extremety ED: Yes edema and tenderness General Extremity: edema Neuro oriented x3 and CN's II-XII intact bilaterally Sensorium / Orientation: alert Motor Exam: strength 5/5 throughout Psych mental status grossly normal Attitude: No agitated Skin no rashes or lesions noted and no wounds General Skin Exam: Negative for jaundice or pallor MDM MDM MDM Narrative Medical decision making narrative: Patient seen and evaluated on arrival for EtOH withdrawal symptoms. Patient states he last drank this morning. EKG performed on arrival sinus rhythm without signs of ischemic change. Lab work-up shows a normal H&H, white blood cell count 4.3, platelets 85. CMP shows slightly elevated bili at 2.10 AST 153, ALT 73, alk phos 165. Renal function is normal. EtOH 183. Urine drug screen is negative. Patient was given Ativan for his symptoms and has remained stable. Patient discussed with hospitalist for admission for EtOH withdrawal. Patient stable on transfer. Impression: 1. EtOH abuse 2. EtOH withdrawal Lab Data Attestation: I reviewed the patient's lab results. Labs: Laboratory Results - last 24 hr 03/03/21 03/03/21 03/03/21 16:40 16:40 16:40 WBC 4.3 L RBC 4.64 Hgb 13.3 Hct 40.3 MCV 86.9 MCH 28.7 MCHC 33.0 RDW Std Deviation 44.0 H RDW Coeff of Eben 13.9 Plt Count 85 L MPV 10.7 Immature Gran % (Auto) 0.200 Neut % (Auto) 64.3 Lymph % (Auto) 21.3 [place] % (Auto) 12.8 H Eos % (Auto) 0.5 Baso % (Auto) 0.9 Absolute Neuts (auto) 2.8 Absolute Lymphs (auto) 0.92 Nucleated RBC % 0 Differential Comment SCANNED Platelet Estimate MOD DEC Sodium 139 Potassium 4.3 Chloride 103 Carbon Dioxide 27.0 Anion Gap 9 BUN 13 Creatinine 0.77 Estim Creat Clear Calc 127.67 Est GFR (MDRD) Af Amer 140 Est GFR (MDRD) Non-Af 116 BUN/Creatinine Ratio 16.9 Glucose 89 Calcium 9.1 Total Bilirubin 2.10 H AST 153 H ALT 73 H Alkaline Phosphatase 165 H Total Protein 8.8 H Albumin 3.6 Globulin 5.2 H Albumin/Globulin Ratio 0.7 L Urine Opiates Screen Urine Methadone Screen Ur Barbiturates Screen Ur Phencyclidine Scrn Ur Amphetamines Screen U Methamphetamin-MDMA U Benzodiazepines Scrn Urine Cocaine Screen U Cannabinoids Screen Ur Drug Screen Comment Ethyl Alcohol 183.0 03/03/21 16:55 WBC RBC Hgb Hct MCV MCH MCHC RDW Std Deviation RDW Coeff of Eben Plt Count MPV Immature Gran % (Auto) Neut % (Auto) Lymph % (Auto) [place] % (Auto) Eos % (Auto) Baso % (Auto) Absolute Neuts (auto) Absolute Lymphs (auto) Nucleated RBC % Differential Comment Platelet Estimate Sodium Potassium Chloride Carbon Dioxide Anion Gap BUN Creatinine Estim Creat Clear Calc Est GFR (MDRD) Af Amer Est GFR (MDRD) Non-Af BUN/Creatinine Ratio Glucose Calcium Total Bilirubin AST ALT Alkaline Phosphatase Total Protein Albumin Globulin Albumin/Globulin Ratio Urine Opiates Screen NEGATIVE Urine Methadone Screen NEGATIVE Ur Barbiturates Screen NEGATIVE Ur Phencyclidine Scrn NEGATIVE Ur Amphetamines Screen NEGATIVE U Methamphetamin-MDMA NEGATIVE U Benzodiazepines Scrn NEGATIVE Urine Cocaine Screen NEGATIVE U Cannabinoids Screen NEGATIVE Ur Drug Screen Comment Ethyl Alcohol Discharge Plan Triage Chief Complaint: Substance Abuse ED Provider: Trevon Tanner Dx/Rx/DC Orders Prescriptions: No Action pantoprazole 40 mg Tablet,Delayed Release (Dr/Ec) 40 mg PO DAILY RF: 0 buspirone 7.5 mg Tablet 7.5 mg PO BID RF: 0 vitamin B complex Capsule 1 cap PO DAILY RF: 0 Primary Care Provider: Zachary Mcclendon
[2021-03-03] MEDS: Ondansetron 4 MG/2 ML Vial IV (16:44)
[2021-03-03] MEDS: LORazepam 2 MG/ML Syringe 1 MG IV (16:44)
[2021-03-03 16:58] LABS: Absolute Lymphocyte Count 0.92 X10^3/uL (0.83-4.51); Absolute Neutrophil Count 2.8 X10^3/uL (2.0-7.7); Basophil# 0.04 X10^3/uL; Basophil% 0.9 % (0-1); Eosinophil# 0.02 X10^3/uL; Eosinophils% 0.5 % (0-5); Hematocrit 40.3 % (40-54); Hemoglobin 13.3 g/dL (13.0-16.5); Lymphocyte # 0.92 X10^3/ul (0.83-4.51); Lymphocyte % 21.3 % (19-41); Mean Corpuscular Hgb 28.7 pg (27.0-32.0); Mean Corpuscular Volume 86.9 fL (80-94); Mean Platelet Vol. 10.7 fl (6.2-12.0); Monocyte# 0.55 X10^3/uL; Monocyte% 12.8 % (0-10); NRBC Flagged by Analyzer 0 % (0-5); Neutrophil # 2.77 X10^3/uL (2.7-7.7); Neutrophil % 64.3 % (47-70); POSITIVE COUNT YES; Platelet Count 85 K/mm3 (150-450); RBC Distribution Width CV 13.9 % (11.6-14.6); Red Blood Count 4.64 M/mm3 (4.6-6.2); White Blood Count 4.3 K/mm3 (4.4-11.0)
[2021-03-03 17:18] VITALS: BP 130/80; PULSE 77; RESP 15; O2SAT 94
[2021-03-03 17:24] LABS: ALB/GLOB Ratio 0.7 RATIO (0.9-2.4); AST(SGOT) 153 U/L (15-37); Alanine Aminotransfer ALT/SGPT 73 U/L (16-61); Albumin, Serum 3.6 g/dL (3.2-5.0); Alkaline Phosphatase 165 U/L (45-117); Anion Gap 9 (5-15); BUN 13 mg/dL (7-18); BUN/Creat Ratio 16.9 RATIO (10-20); Calcium,Total 9.1 mg/dL (8.5-10.1); Chloride 103 mmol/L (98-107); Creatinine, Serum 0.77 mg/dL (0.70-1.30); EST Glomerular Filtration Rate 116 mL/min (>60); Est Glom Filt Rate - Afr Amer 140 mL/min (>60); Estimated Creatinine Clearance 127.67 ml/min; Globulin 5.2 g/dL (2.2-4.2); Glucose 89 mg/dL (74-106); Potassium 4.3 mmol/L (3.5-5.1); Protein, Total 8.8 g/dL (6.4-8.2); Sodium Level 139 mmol/L (136-145)
[2021-03-03 17:34] LABS: Differential Indicated SCAN CRITERIA MET
[2021-03-03 17:35] LABS: Differential Comment SCANNED; Platelet Estimate MOD DEC (ADEQ)
[2021-03-03 17:38] LABS: Amphetamine Urine VISTA NEGATIVE (<1000 ng/mL); Barbiturate Urine VISTA NEGATIVE (< 200 ng/mL); Benzodiazepine Urine VISTA NEGATIVE (< 200 ng/mL); Cocaine Urine VISTA NEGATIVE (< 300 ng/mL); Ecstacy Urine VISTA NEGATIVE (< 500 ng/mL); Methadone Urine VISTA NEGATIVE (< 300 ng/mL); PCP Urine VISTA NEGATIVE (< 25 ng/mL); THC Urine VISTA NEGATIVE (< 50 ng/mL); Vista UDS pH Range 5
--- NOTE | 2021-03-03 17:54 | HP.PCM.HOS_ITS ---
[facility] - General General Date of Admission: 03/03/21 HPI Narrative BERNARDA PORTILLO, is a 46 M with a PMH as outlined who presents for acute alcohol withdrawal. He drinks copious quantities of alcohol daily, and has been through detox. His last drink was a few hours prior to admission. he has a history of intracranial bleed, after a mechanical fall, and was on Keppra, but has now transitioned off of it. HE also has a history of esophageal varices. He denies any lightheadedness or dizziness or palpitations but admits to tremors. Review of systems otherwise negative. Vitals in the ED were negative, and CBC showed Hb o 13.3, with wbc of 4.3 and platelets of 85. Chemistry was also significant for total bilirubin of 2.1, with AST/ALT of 153/73, ALP of 165 and urine tox screen was negative with serum alcohol level of 183. He is being admitted to be managed for acute alcohol withdrawal and elevated liver enzymes. [facility] History (Updated 03/03/21 @ 20:29 by Johanne Bishop) Alcohol abuse Anxiety Cirrhosis Depression GERD (gastroesophageal reflux disease) GI bleed Hepatitis Hypertension Non-smoker Pancreatitis Seizures Sleep apnea Stroke/cerebrovascular accident Traumatic brain injury Home Medications buspirone 7.5 mg PO BID 03/03/21 [History Last Taken Unknown] pantoprazole 40 mg PO DAILY 03/03/21 [History Last Taken Unknown] vitamin B complex 1 cap PO DAILY 03/03/21 [History Last Taken Unknown] Allergy/AdvReac Type Severity Reaction Status Date / Time celecoxib [From Celebrex] Allergy Hives Verified 03/03/21 15:19 Social History Smoking Status: Never smoker ROS Constitutional Constitutional: Denies anorexia, chills, fatigue, fever(s) or malaise Eyes Eyes: Denies double vision or loss of vision ENT HEENT: Denies dysphagia, headache(s), hearing loss or nasal congestion Cardiovascular Cardiovascular: Denies chest pain or edema Respiratory/Chest Respiratory/Chest: Denies cough, dyspnea, productive cough, shortness of breath at rest or shortness of breath with exertion Gastrointestinal Gastrointestinal: Denies abdominal pain, melena, nausea or vomiting Genitourinary Genitourinary: Denies burning urination or urinary frequency Neurologic Neurologic: Denies abnormal gait, abnormal speech, focal weakness or seizure- like activity Psychiatric Psychiatric: Denies anxiety Hematologic/Lymphatic Hematologic/Lymphatic: Denies anemia Allergic/Immunologic Allergic/Immunologic: Denies asthma Vital Signs Vital Signs Vital Signs: 03/03/21 15:18 03/03/21 17:18 Temperature 98.5 F Temperature Source Temporal Pulse Rate 100 77 Respiratory Rate 16 15 Blood Pressure 148/89 H 130/80 H Blood Pressure Mean 108 96 Pulse Ox 93 94 Oxygen Delivery Method Room Air Room Air Physical Exam Const alert, oriented x3 and no apparent distress General Appearance: cooperative HEENT normocephalic, head/scalp atraumatic and hearing grossly normal bilaterally Eyes PERRL, EOMs intact bilaterally and conjunctivae normal Neck no lymphadenopathy Resp normal respiratory effort, no retractions, no use of accessory muscles and clear to auscultation bilaterally Cardio regular rate, regular rhythm, S1 normal heart sound, S2 normal heart sound and no murmurs GI normal to inspection, nondistended, normoactive bowel sounds, soft to palpation, non-tender and non-distended Extremity normal to inspection Skin no rashes or lesions noted and no wounds Neuro oriented x3, moves all extremities and no focal motor deficits Sensorium / Orientation: alert Psych affect normal Lab / Micro Data Result Diagrams: 03/03/21 16:40 03/03/21 16:40 Labs: Laboratory Results - last 24 hr 03/03/21 03/03/21 03/03/21 16:40 16:40 16:40 WBC 4.3 L RBC 4.64 Hgb 13.3 Hct 40.3 MCV 86.9 MCH 28.7 MCHC 33.0 RDW Std Deviation 44.0 H RDW Coeff of Eben 13.9 Plt Count 85 L MPV 10.7 Immature Gran % (Auto) 0.200 Neut % (Auto) 64.3 Lymph % (Auto) 21.3 [place] % (Auto) 12.8 H Eos % (Auto) 0.5 Baso % (Auto) 0.9 Absolute Neuts (auto) 2.8 Absolute Lymphs (auto) 0.92 Nucleated RBC % 0 Differential Comment SCANNED Platelet Estimate MOD DEC Sodium 139 Potassium 4.3 Chloride 103 Carbon Dioxide 27.0 Anion Gap 9 BUN 13 Creatinine 0.77 Estim Creat Clear Calc 127.67 Est GFR (MDRD) Af Amer 140 Est GFR (MDRD) Non-Af 116 BUN/Creatinine Ratio 16.9 Glucose 89 Calcium 9.1 Total Bilirubin 2.10 H AST 153 H ALT 73 H Alkaline Phosphatase 165 H Total Protein 8.8 H Albumin 3.6 Globulin 5.2 H Albumin/Globulin Ratio 0.7 L Urine Opiates Screen Urine Methadone Screen Ur Barbiturates Screen Ur Phencyclidine Scrn Ur Amphetamines Screen U Methamphetamin-MDMA U Benzodiazepines Scrn Urine Cocaine Screen U Cannabinoids Screen Ur Drug Screen Comment Ethyl Alcohol 183.0 03/03/21 16:55 WBC RBC Hgb Hct MCV MCH MCHC RDW Std Deviation RDW Coeff of Eben Plt Count MPV Immature Gran % (Auto) Neut % (Auto) Lymph % (Auto) [place] % (Auto) Eos % (Auto) Baso % (Auto) Absolute Neuts (auto) Absolute Lymphs (auto) Nucleated RBC % Differential Comment Platelet Estimate Sodium Potassium Chloride Carbon Dioxide Anion Gap BUN Creatinine Estim Creat Clear Calc Est GFR (MDRD) Af Amer Est GFR (MDRD) Non-Af BUN/Creatinine Ratio Glucose Calcium Total Bilirubin AST ALT Alkaline Phosphatase Total Protein Albumin Globulin Albumin/Globulin Ratio Urine Opiates Screen NEGATIVE Urine Methadone Screen NEGATIVE Ur Barbiturates Screen NEGATIVE Ur Phencyclidine Scrn NEGATIVE Ur Amphetamines Screen NEGATIVE U Methamphetamin-MDMA NEGATIVE U Benzodiazepines Scrn NEGATIVE Urine Cocaine Screen NEGATIVE U Cannabinoids Screen NEGATIVE Ur Drug Screen Comment Ethyl Alcohol Assessment & Plan Assessment/Plan (1) Alcohol withdrawal: (2) Anxiety: (3) OCD (obsessive compulsive disorder): (4) Abnormal LFTs: (5) Fatty infiltration of liver: (6) Alcoholism: PLAN: #Acute alcohol withdrawal * admit to med surg * alcohol withdrawal protocol with phenobarbital * monitor CIWA score * multivites, thiamine and folic acid * #Elevated liver enzymes * total bilirubin is 2.1; chronically elevated. Was 1.8 in 2018 * AST/ALT also elevated * has a history of fatty liver due to alcohol abuse * get liver USG * trend liver enzymes * hepatitis screen done int 2018 was negative * #Anxiety and depression: on buspar #History of esophageal varices * patient says he has a history of esophageal varices * stable. Will monitor * DVT prophylaxis: low risk, encourage to ambulate # Visit Charges Inpatient E&M: 80511 Init Hosp L3
[2021-03-03 18:22] VITALS: BP 122/77; PULSE 104; RESP 18; TEMP 37.2; O2SAT 94
[2021-03-03 19:55] VITALS: BP 142/84; PULSE 94; RESP 16; TEMP 37.1; O2SAT 98
[2021-03-03] MEDS: Phenobarbital 32.4 MG Tablet PO ×2 (20:07→23:49)
[2021-03-03] MEDS: hydrOXYzine PAM 25 MG Capsule 50 MG PO (20:10)
[2021-03-03] MEDS: traZODone 100 MG Tablet PO (20:10)
[2021-03-03] MEDS: busPIRone 15 MG TABLET 7.5 MG PO (20:11)
[2021-03-03 20:15] VITALS: BMI 26.4
[2021-03-03] MEDS: Gabapentin 300 MG Capsule PO (23:51)
[2021-03-04 04:02] VITALS: BP 136/70; PULSE 88; RESP 18; TEMP 36.8; O2SAT 96
[2021-03-04] MEDS: Phenobarbital 32.4 MG Tablet PO ×5 (04:04→20:03)
[2021-03-04] MEDS: hydrOXYzine PAM 25 MG Capsule 50 MG PO ×3 (06:57→20:59)
[2021-03-04 07:30] VITALS: BP 123/79; PULSE 93; RESP 20; TEMP 37.2; O2SAT 97
[2021-03-04 07:33] VITALS: PULSE 108
[2021-03-04] MEDS: Folic Acid 1 MG Tablet PO (07:41)
[2021-03-04] MEDS: Pantoprazole Sodium 40 MG Tablet PO (07:41)
[2021-03-04] MEDS: Thiamine Hydrochloride 100 MG Tablet PO (07:41)
[2021-03-04] MEDS: busPIRone 15 MG TABLET 7.5 MG PO ×2 (07:44→20:03)
[2021-03-04] MEDS: Gabapentin 300 MG Capsule PO ×2 (09:46→18:00)
[2021-03-04] MEDS: Polyethylene Glycol 3350 17 GM PACKET PO (10:39)
[2021-03-04] MEDS: 0.9% Saline Lock 10 ML Syringe IV (13:19)
[2021-03-04 14:26] VITALS: BP 129/77; PULSE 96; RESP 18; TEMP 37.1; O2SAT 96
--- NOTE | 2021-03-04 14:50 | PN.HOSP_ITS ---
Subjective Subjective: Patient seen and examined today. He complains of constipation. Review of systems otherwise negative. He has been hemodynamically stable. Objective Data Objective Data Vital Signs: Vital Signs Temp Pulse Resp BP Pulse Ox 98.8 F 96 18 129/77 H 96 03/04/21 14:26 03/04/21 14:26 03/04/21 14:26 03/04/21 14:26 03/04/21 14:26 Oxygen Delivery Method Room Air Weight: 189 lb 10.778 oz Body Mass Index (BMI) 26.4 Lab / Micro Data Result Diagrams: 03/03/21 16:40 03/03/21 16:40 Labs: Laboratory Results - last 24 hr 03/03/21 03/03/21 03/03/21 16:40 16:40 16:40 WBC 4.3 L RBC 4.64 Hgb 13.3 Hct 40.3 MCV 86.9 MCH 28.7 MCHC 33.0 RDW Std Deviation 44.0 H RDW Coeff of Eben 13.9 Plt Count 85 L MPV 10.7 Immature Gran % (Auto) 0.200 Neut % (Auto) 64.3 Lymph % (Auto) 21.3 [place] % (Auto) 12.8 H Eos % (Auto) 0.5 Baso % (Auto) 0.9 Absolute Neuts (auto) 2.8 Absolute Lymphs (auto) 0.92 Nucleated RBC % 0 Differential Comment SCANNED Platelet Estimate MOD DEC Sodium 139 Potassium 4.3 Chloride 103 Carbon Dioxide 27.0 Anion Gap 9 BUN 13 Creatinine 0.77 Estim Creat Clear Calc 127.67 Est GFR (MDRD) Af Amer 140 Est GFR (MDRD) Non-Af 116 BUN/Creatinine Ratio 16.9 Glucose 89 Calcium 9.1 Total Bilirubin 2.10 H AST 153 H ALT 73 H Alkaline Phosphatase 165 H Total Protein 8.8 H Albumin 3.6 Globulin 5.2 H Albumin/Globulin Ratio 0.7 L Urine Opiates Screen Urine Methadone Screen Ur Barbiturates Screen Ur Phencyclidine Scrn Ur Amphetamines Screen U Methamphetamin-MDMA U Benzodiazepines Scrn Urine Cocaine Screen U Cannabinoids Screen Ur Drug Screen Comment Ethyl Alcohol 183.0 03/03/21 16:55 WBC RBC Hgb Hct MCV MCH MCHC RDW Std Deviation RDW Coeff of Eben Plt Count MPV Immature Gran % (Auto) Neut % (Auto) Lymph % (Auto) [place] % (Auto) Eos % (Auto) Baso % (Auto) Absolute Neuts (auto) Absolute Lymphs (auto) Nucleated RBC % Differential Comment Platelet Estimate Sodium Potassium Chloride Carbon Dioxide Anion Gap BUN Creatinine Estim Creat Clear Calc Est GFR (MDRD) Af Amer Est GFR (MDRD) Non-Af BUN/Creatinine Ratio Glucose Calcium Total Bilirubin AST ALT Alkaline Phosphatase Total Protein Albumin Globulin Albumin/Globulin Ratio Urine Opiates Screen NEGATIVE Urine Methadone Screen NEGATIVE Ur Barbiturates Screen NEGATIVE Ur Phencyclidine Scrn NEGATIVE Ur Amphetamines Screen NEGATIVE U Methamphetamin-MDMA NEGATIVE U Benzodiazepines Scrn NEGATIVE Urine Cocaine Screen NEGATIVE U Cannabinoids Screen NEGATIVE Ur Drug Screen Comment Ethyl Alcohol Physical Exam Const alert, oriented x3 and no apparent distress General Appearance: cooperative HEENT normocephalic, head/scalp atraumatic and hearing grossly normal bilaterally Head and Scalp: normocephalic Eyes PERRL, EOMs intact bilaterally and conjunctivae normal Neck no lymphadenopathy Resp normal respiratory effort, no retractions, no use of accessory muscles and clear to auscultation bilaterally Cardio regular rate, regular rhythm, S1 normal heart sound, S2 normal heart sound and no murmurs GI normal to inspection, nondistended, normoactive bowel sounds, soft to palpation, non-tender and non-distended Extremity normal to inspection Skin no rashes or lesions noted and no wounds Neuro oriented x3, moves all extremities and no focal motor deficits Sensorium / Orientation: alert Psych affect normal Assessment & Plan Assessment/Plan (1) Alcohol withdrawal: (2) Anxiety: (3) OCD (obsessive compulsive disorder): (4) Abnormal LFTs: (5) Fatty infiltration of liver: (6) Alcoholism: PLAN: #Acute alcohol withdrawal * alcohol withdrawal protocol with phenobarbital * monitor CIWA score * multivites, thiamine and folic acid * #Alcoholic liver disease * liver enzymes were moderately elevated on admission, which is chronic. Total bilirubin was 2.1, which is chronic. * has a history of fatty liver due to alcohol abuse * get liver USG * trend liver enzymes * hepatitis screen done in 2018 was negative and he says he has been told he has cirrhosis due to alcohol abuse. * #Anxiety and depression: on buspar #History of esophageal varices * patient says he has a history of esophageal varices * stable. Will monitor * DVT prophylaxis: low risk, encourage to ambulate # Visit Charges Inpatient E&M: 87809 Subs Hosp L2
[2021-03-04 16:37] VITALS: BP 138/79; PULSE 87; RESP 18; TEMP 37; O2SAT 96
[2021-03-04] MEDS: traZODone 100 MG Tablet PO (20:03)
[2021-03-04 20:05] VITALS: BP 136/76; PULSE 84; RESP 16; TEMP 36.9; O2SAT 96
[2021-03-05] VITALS (17 sets, daily range): BP systolic 83–137; BP diastolic 46–94; PULSE 74–125; RESP 13–36; TEMP 36.2–37.3; O2SAT 90–97
[2021-03-05] MEDS: LORazepam 1 MG Tablet 2 MG PO ×4 (00:01→12:52)
[2021-03-05] MEDS: Phenobarbital 32.4 MG Tablet PO ×5 (00:01→23:13)
[2021-03-05] MEDS: hydrOXYzine PAM 25 MG Capsule 50 MG PO (01:19)
[2021-03-05] MEDS: Gabapentin 300 MG Capsule PO ×2 (01:51→13:15)
--- NOTE | 2021-03-05 02:13 | NURSING ---
pt restless and anxious throughout night, ativan CIWA protocol started. CIWA 24. Moderate hallucinations noted. Increased bed alarm, sitter now present in room.
--- NOTE | 2021-03-05 02:34 | NURSING ---
2mg IM haldol given for increased agitation
[2021-03-05] MEDS: Haloperidol Lactate 5 MG/ML Vial 2 MG IM (02:35)
--- NOTE | 2021-03-05 05:11 | NURSING ---
pt now resting with eyes shut, sitter d/c'd. bed exit on, safety maintained
--- NOTE | 2021-03-05 05:55 | US_ITS ---
STUDY: ABDOMINAL ULTRASOUND - RIGHT UPPER QUADRANT REASON FOR VISIT: Male, 46 years old alcoholic liver disease TECHNIQUE: Ultrasound evaluation of the right upper quadrant was performed with real-time and static lawson-scale imaging. TECHNICAL QUALITY: Limited. Examination limited by bowel gas. COMPARISON: None. FINDINGS: Liver: The liver measures 17.5 cm. There is increased echogenicity consistent with fatty infiltration. The bile ducts are within normal limits. There is hepatic color flow. The direction of portal flow is hepatopetal. There is no demonstrated mass lesion. Small amount of free fluid is seen in the Morison''s pouch. Gallbladder: Normal distended gallbladder. The gallbladder wall measures 3 mm. There is a negative sonographic Catherine''s sign. There is no pericholecystic fluid. There are no gallstones. Common Bile Duct (C.B.D.): The common bile duct measures 4 mm. Pancreas: Normal size of the head, body and tail of the pancreas. There is normal echogenicity of the pancreas. There is a 1.5 cm x 1.3 cm x 1.3 cm hypoechoic nodular density in the head of the pancreas. Right Kidney: Normal size of the right kidney. The right kidney measures 10.1 cm x 5.9 cm x 6 cm. Normal renal cortex. The right cortex measures 1.6 cm. There is no demonstrated renal mass or cyst. There is no right hydronephrosis. US/Liver IMPRESSION: Fatty infiltration of the liver. 1.5 cm x 1.3 cm x 1.3 cm hypoechoic nodular density in the head of the pancreas. Electronically Signed: Cesar Liriano MD at 9:56 EDT , Service support ,
--- NOTE | 2021-03-05 10:17 | CASEMGMT ---
Social Work Note Per weblogic developer questions, pt has completed HCPOA, hasn't provided copy to [facility] and pt unable to bring in copy. Pt hasn't completed a LW. Johanne Curiel [employer],[facility]
[2021-03-05] MEDS: busPIRone 15 MG TABLET 7.5 MG PO ×2 (11:30→23:16)
[2021-03-05] MEDS: Folic Acid 1 MG Tablet PO (11:30)
[2021-03-05] MEDS: Thiamine Hydrochloride 100 MG Tablet PO (11:31)
[2021-03-05] MEDS: Pantoprazole Sodium 40 MG Tablet PO (11:31)
--- NOTE | 2021-03-05 11:53 | PCM.PN.HOSP ---
Subjective Subjective: Patient was seen and examined. He was agitated overnight. He received Haldol. Later on and was agitated, pacing, not able to settle down. He was also hallucinating. Objective Data Objective Data Vital Signs: Vital Signs Temp Pulse Resp BP Pulse Ox 99.1 F 118 H 16 137/82 H 94 03/05/21 11:19 03/05/21 11:19 03/05/21 11:19 03/05/21 11:19 03/05/21 11:19 Oxygen Delivery Method Room Air Weight: 86.035 kg Body Mass Index (BMI) 26.4 Lab / Micro Data Result Diagrams: 03/03/21 16:40 03/03/21 16:40 Radiography Diagnostic Testing: Radiology Impression Liver Ultrasound 03/05/21 05:55 IMPRESSION: Fatty infiltration of the liver. 1.5 cm x 1.3 cm x 1.3 cm hypoechoic nodular density in the head of the pancreas. Electronically Signed: Cesar Liriano MD at 9:56 EDT , Service support , Physical Exam Narrative General:Sleeping, Oriented x3, Cooperative, No apparent distress, Well developed HEENT: Atraumatic Oral: Moist Mucosa Neck: Supple Lungs: Clear to auscultation Cardiovascular: HS I+II, regular, no murmurs Abdomen: Bowel Sounds Present, Soft, Non Tender Extremities: No edema Skin: No rashes, No breakdown Neurological: Grossly intact Psych/Mental Status: Appropriate Const General Appearance: cooperative HEENT normocephalic and hearing grossly normal bilaterally GI normal to inspection, nondistended, normoactive bowel sounds, soft to palpation, non-tender and non-distended Extremity normal to inspection Skin no rashes or lesions noted and no wounds Neuro oriented x3, moves all extremities and no focal motor deficits Sensorium / Orientation: alert Psych affect normal Assessment & Plan Assessment/Plan (1) Alcohol withdrawal: (2) Abnormal LFTs: (3) Fatty infiltration of liver: (4) Pancreatic mass: PLAN: 1. Acute alcohol withdrawal, severe, requiring use of Ativan and Haldol We will transfer to ICU for Precedex drip, continue on phenobarb taper Continue on folic acid, multivitamin, thiamine 2. Elevated liver enzymes likely secondary to chronic alcohol use We will repeat liver enzymes today Ultrasound of the liver showed fatty infiltration, 1.5 cm x 1.3 cm x 1.3 cm hypoechoic nodular density in the head of the pancreas That has to be followed up in the outpatient Visit Charges Inpatient E&M: 22769 Subs Hosp L3
--- NOTE | 2021-03-05 13:39 | NURSING ---
lift supervisor notified per Primary RN Dr. Morales is ordering transfer to ICU for precedex drip
--- NOTE | 2021-03-05 13:56 | NURSING ---
Security had been called requesting their assistance as patient increasingly agitated, confused. unable to orient and paranoid. pt reluctant to follow any directions. requesting their assistance with getting patient. Switchboard called requesting they radio security to let them know pt got in the bed so we are headed to the elevators on [address].
[2021-03-05] MEDS: 0.9% Saline Lock 10 ML Syringe IV ×3 (14:15→23:48)
--- NOTE | 2021-03-05 14:44 | CON.PCM.CC_ITS ---
Assessment & Plan Assessment/Plan (1) Alcohol withdrawal: (2) Pancreatic mass: (3) OCD (obsessive compulsive disorder): (4) Anxiety: (5) Thrombocytopenia concurrent with and due to alcoholism: PLAN: RECOMMENDATIONS: 1. Continue Precedex and phenobarbital 2. Wean Precedex as tolerated. Reinitiate as needed Ativan 3. Obtain electrolytes and replete if necessary 4. Continue folate acid, multivitamin and thiamine 5. May consider following every 6 blood sugars pending BMP results IMPRESSIONS: 1. Acute alcohol withdrawal/toxic encephalopathy Patient appears to be peaking with withdrawal symptoms at this time. We will continue with phenobarb. Precedex will be weaned as tolerated. Would continue Ativan as needed for breakthrough as Precedex will be slow to take effect with titrations. Patient will be at risk for refeeding syndrome with electrolyte abnormalities. Electrolytes will be sent. Repletion as necessary. 2. Pancreatic mass with fatty liver disease Unclear significance of mass in the pancreas. Patient unable to provide any additional history on if this is being followed already. Patient may require an ERCP versus EUS for evaluation. Anticipate stabilization of problem #1 prior to evaluation. Patient will be at risk for elevated blood sugars. Patient currently n.p.o. secondary to mental status. If blood sugars elevated on BMP, every 6 blood sugars may be indicated. 3. History of DTs/GERD/OCD Complicates care, management, recovery and prognosis. Patient appears to be hallucinating at this time. HPI Consult Data Date of Consult: 03/05/21 HPI Narrative HPI Narrative: BERNARDA PORTILLO is a 46 M, with past medical history listed below, who presents to [facility] on 03/03/2021 secondary to detox from alcohol. Patient reportedly drinks half a liter to a liter of vodka daily and his last drink was on the day of presentation. Patient reportedly had mild nausea and shakes at that time. 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 Patient was on Keppra around that episode, but does not take it chronically. Patient also has a history of esophageal varices. Patient reportedly has had a cough, but had received both of his COVID-19 vaccinations. The cough was described as dry and not associated with shortness of breath or chest pain. In the ER, patient was afebrile, but hypertensive at 148/89. Patient was saturating well on room air and was tachycardic. EKG showed no ischemic changes . Initial lab work-up showed a normal H&H with thrombocytopenia at 85. Patient did have some elevated liver enzymes and alcohol level was noted at 183. The patient was then admitted to the MedSurg unit on the alcohol withdrawal protocol. However, earlier today, patient became more agitated and h allucinating. Patient was transferred to the intensive care unit for Precedex. Patient was receiving Ativan and phenobarbital prior to that transfer. Patient is slurring his words at this time. Unable to obtain additional review of systems. Patient is not reporting any chest pain or shortness of breath, but states that he sees a bottle of cognac on the floor. Patient is impulsive and tries to make it out of bed despite being on Precedex therapy. [facility] Medical History (Updated 03/05/21 @ 14:[address] Roge Scherer MD) Alcohol abuse Anxiety Cirrhosis Depression GERD (gastroesophageal reflux disease) GI bleed Hepatitis Hypertension Non-smoker Pancreatitis Seizures Sleep apnea Stroke/cerebrovascular accident Traumatic brain injury Home Medications buspirone 7.5 mg PO BID 03/03/21 [History Last Taken Unknown] pantoprazole 40 mg PO DAILY 03/03/21 [History Last Taken Unknown] vitamin B complex 1 cap PO DAILY 03/03/21 [History Last Taken Unknown] Allergy/AdvReac Type Severity Reaction Status Date / Time celecoxib [From Celebrex] Allergy Hives Verified 03/03/21 15:19 Social History Smoking Status: Never smoker ROS Review of Systems ROS Unobtainable: due to encephalopathy and due to mental status Physical Exam Const alert; Negative for oriented x3 Constitutional Narrative: Oriented to self only General Appearance: cooperative, disheveled and appears older than stated age; Negative for ill appearing Orientation / Consciousness: oriented to person and confused HEENT normocephalic Head and Scalp: atraumatic Eyes PERRL and EOMs intact bilaterally Neck supple, no JVD and no carotid bruits Resp normal respiratory effort and clear to auscultation bilaterally Cardio regular rate and no murmurs GI normal to inspection, nondistended, normoactive bowel sounds and soft to palpation Extremity normal capillary refill General Extremity: Negative for edema Skin no rashes or lesions noted Neuro CN's II-XII intact bilaterally Psych cooperative and affect normal Lab / Micro Data Result Diagrams: 03/03/21 16:40 03/03/21 16:40 Radiology Impression Liver Ultrasound 03/05/21 05:55 IMPRESSION: Fatty infiltration of the liver. 1.5 cm x 1.3 cm x 1.3 cm hypoechoic nodular density in the head of the pancreas. Electronically Signed: Cesar Liriano MD at 9:56 EDT , Service support , Charges/Coding Visit Charges Inpatient E&M: 46073 Init Hosp L2
[2021-03-05 15:29] LABS: Anion Gap 8 (5-15); BUN 15 mg/dL (7-18); BUN/Creat Ratio 14.2 RATIO (10-20); Calcium,Total 9.3 mg/dL (8.5-10.1); Chloride 102 mmol/L (98-107); Creatinine, Serum 1.06 mg/dL (0.70-1.30); EST Glomerular Filtration Rate 80 mL/min (>60); Est Glom Filt Rate - Afr Amer 97 mL/min (>60); Estimated Creatinine Clearance 92.74 ml/min; Glucose 126 mg/dL (74-106); Magnesium 1.7 mg/dL (1.6-2.6); Potassium 3.9 mmol/L (3.5-5.1); Sodium Level 136 mmol/L (136-145)
[2021-03-05] MEDS: 0.9% Normal Saline 1,000 ML 100 ML IV (19:44)
[2021-03-05] MEDS: LORazepam 2 MG/ML Syringe IV (23:48)
[2021-03-06] VITALS (29 sets, daily range): BP systolic 93–137; BP diastolic 55–82; PULSE 70–107; RESP 14–21; TEMP 36.3–36.7; O2SAT 92–99
[2021-03-06] MEDS: 0.9% Saline Lock 10 ML Syringe IV ×3 (00:55→22:01)
[2021-03-06] MEDS: LORazepam 2 MG/ML Syringe IV ×3 (00:55→21:59)
[2021-03-06 04:39] LABS: Absolute Lymphocyte Count 1.49 X10^3/uL (0.83-4.51); Absolute Neutrophil Count 4.9 X10^3/uL (2.0-7.7); Basophil# 0.05 X10^3/uL; Basophil% 0.7 % (0-1); Eosinophil# 0.18 X10^3/uL; Eosinophils% 2.4 % (0-5); Hematocrit 40.1 % (40-54); Lymphocyte # 1.49 X10^3/ul (0.83-4.51); Lymphocyte % 19.5 % (19-41); Mean Corp Hgb Conc 32.4 g/dL (32-36); Mean Corpuscular Hgb 28.9 pg (27.0-32.0); Mean Corpuscular Volume 89.1 fL (80-94); Monocyte% 13.1 % (0-10); NRBC Flagged by Analyzer 0 % (0-5); Neutrophil # 4.89 X10^3/uL (2.7-7.7); POSITIVE COUNT YES; Platelet Count 96 K/mm3 (150-450); RBC Distribution Width CV 14.4 % (11.6-14.6); RBC Distribution Width SD 46.3 fl (35.1-43.9); White Blood Count 7.6 K/mm3 (4.4-11.0)
[2021-03-06 04:53] LABS: ALB/GLOB Ratio 0.7 RATIO (0.9-2.4); AST(SGOT) 93 U/L (15-37); Alanine Aminotransfer ALT/SGPT 65 U/L (16-61); Albumin, Serum 3.2 g/dL (3.2-5.0); Alkaline Phosphatase 152 U/L (45-117); Anion Gap 7 (5-15); BUN 19 mg/dL (7-18); BUN/Creat Ratio 20.1 RATIO (10-20); Calcium,Total 8.6 mg/dL (8.5-10.1); Chloride 103 mmol/L (98-107); Creatinine, Serum 0.94 mg/dL (0.70-1.30); EST Glomerular Filtration Rate 92 mL/min (>60); Est Glom Filt Rate - Afr Amer 111 mL/min (>60); Estimated Creatinine Clearance 104.58 ml/min; Globulin 4.9 g/dL (2.2-4.2); Glucose 88 mg/dL (74-106); Potassium 3.9 mmol/L (3.5-5.1); Protein, Total 8.1 g/dL (6.4-8.2); Sodium Level 135 mmol/L (136-145)
[2021-03-06] MEDS: Phenobarbital 32.4 MG Tablet PO ×3 (05:11→15:50)
[2021-03-06] MEDS: 0.9% Normal Saline 1,000 ML 100 ML IV (05:44)
[2021-03-06] MEDS: TITRATION PARAMETER CHANGE 1 EACH IV (06:19)
--- NOTE | 2021-03-06 06:32 | PCM.PN.INT ---
Subjective Subjective: Patient did okay overnight. Patient was able to come off the Precedex for a short period of time, but this had to be reinitiated. Patient did receive 2 doses of as needed Ativan overnight. Patient did not urinate for quite some time and was bladder scanned for 950 mL despite reporting no need to urinate. A Arriola was placed with 900 cc returned. Objective Data Objective Data Vital Signs: Vital Signs Temp Pulse Resp BP Pulse Ox 36.3 C L 73 19 H 112/78 99 03/06/21 04:00 03/06/21 06:00 03/06/21 06:00 03/06/21 06:00 03/06/21 06:00 Oxygen Delivery Method Room Air Weight: 87.3 kg Body Mass Index (BMI) 26.4 Intake & Output: Intake and Output for Last 24 Hours 03/04/21 03/05/21 03/06/21 23:59 23:59 23:59 Intake Total 284.71 / 405.11 1194.30 / 1194.30 Output Total 900 / 900 Balance 284.71 / 405.11 294.30 / 294.30 Lab / Micro Data Result Diagrams: 03/06/21 04:30 03/06/21 04:30 Labs: Laboratory Results - last 24 hr 03/05/21 03/06/21 03/06/21 15:10 04:30 04:30 WBC 7.6 RBC 4.50 L Hgb 13.0 Hct 40.1 MCV 89.1 MCH 28.9 MCHC 32.4 RDW Std Deviation 46.3 H RDW Coeff of Eben 14.4 Plt Count 96 L MPV 11.0 Immature Gran % (Auto) 0.300 Neut % (Auto) 64.0 Lymph % (Auto) 19.5 [place] % (Auto) 13.1 H Eos % (Auto) 2.4 Baso % (Auto) 0.7 Absolute Neuts (auto) 4.9 Absolute Lymphs (auto) 1.49 Nucleated RBC % 0 Sodium 136 135 L Potassium 3.9 3.9 Chloride 102 103 Carbon Dioxide 26.0 25.0 Anion Gap 8 7 BUN 15 19 H Creatinine 1.06 0.94 Estim Creat Clear Calc 92.74 104.58 Est GFR (MDRD) Af Amer 97 111 Est GFR (MDRD) Non-Af 80 92 BUN/Creatinine Ratio 14.2 20.1 H Glucose 126 H 88 Calcium 9.3 8.6 Phosphorus 2.0 L Magnesium 1.7 Total Bilirubin 4.00 H AST 93 H ALT 65 H Alkaline Phosphatase 152 H Total Protein 8.1 Albumin 3.2 Globulin 4.9 H Albumin/Globulin Ratio 0.7 L Radiography Diagnostic Testing: Radiology Impression Liver Ultrasound 03/05/21 05:55 IMPRESSION: Fatty infiltration of the liver. 1.5 cm x 1.3 cm x 1.3 cm hypoechoic nodular density in the head of the pancreas. Electronically Signed: Cesar Liriano MD at 9:56 EDT , Service support , Physical Exam Const alert; Negative for oriented x3 Constitutional Narrative: Oriented to self only General Appearance: cooperative, disheveled and appears older than stated age; Negative for ill appearing Orientation / Consciousness: oriented to person and confused HEENT normocephalic Eyes PERRL and EOMs intact bilaterally Neck supple, no JVD and no carotid bruits Resp normal respiratory effort and clear to auscultation bilaterally Cardio regular rate and no murmurs GI normal to inspection, nondistended, normoactive bowel sounds and soft to palpation Extremity normal capillary refill General Extremity: Negative for edema Skin no rashes or lesions noted Neuro CN's II-XII intact bilaterally Psych cooperative and affect normal Assessment & Plan Assessment/Plan (1) Alcohol withdrawal: (2) Pancreatic mass: (3) OCD (obsessive compulsive disorder): (4) Anxiety: (5) Thrombocytopenia concurrent with and due to alcoholism: (6) Acute urinary retention: PLAN: RECOMMENDATIONS: 1. Continue Precedex and phenobarbital 2. Wean Precedex as tolerated. Continue as needed Ativan 3. Obtain electrolytes and replete if necessary on a daily basis 4. Continue folate acid, multivitamin and thiamine 5. Will require outpatient work-up for pancreatic mass 6. Voiding trial prior to discharge IMPRESSIONS: 1. Acute alcohol withdrawal/toxic encephalopathy Patient appears to be peaking with withdrawal symptoms at this time. We will continue with phenobarb. Precedex will be weaned as tolerated. Would continue Ativan as needed for breakthrough as Precedex will be slow to take effect with titrations. Patient will be at risk for refeeding syndrome with electrolyte abnormalities. Electrolytes will be sent daily. Repletion as necessary. 2. Pancreatic mass with fatty liver disease Unclear significance of mass in the pancreas. Patient unable to provide any additional history on if this is being followed already. Patient may require an ERCP versus EUS for evaluation. Anticipate stabilization of problem #1 prior to evaluation. Patient will be at risk for elevated blood sugars. Patient currently n.p.o. secondary to mental status. If blood sugars elevated on BMP, every 6 blood sugars may be indicated. 3. History of DTs/GERD/OCD Complicates care, management, recovery and prognosis. Patient appears to be hallucinating at this time. 4. Acute urinary retention Clinical suspicion that this is secondary to medications. Patient will need a voiding trial prior to discharge. Low clinical suspicion for BPH given age. Patient is not showing any signs or symptoms of hematoma obstructing urine outflow. Renal function has remained stable. We will hold on any pelvic imaging at this time. Visit Charges Inpatient E&M: 33416 Subs Hosp L3
--- NOTE | 2021-03-06 07:23 | PN.HOSP_ITS ---
Subjective Subjective: Patient was seen and examined. He appeared drowsy. He was off the Precedex drip shortly and became agitated. He admits to visual hallucinations. Objective Data Objective Data Vital Signs: Vital Signs Temp Pulse Resp BP Pulse Ox 97.3 F L 74 19 H 107/70 94 03/06/21 04:00 03/06/21 07:00 03/06/21 07:00 03/06/21 07:00 03/06/21 07:00 Oxygen Delivery Method Room Air Weight: 87.3 kg Body Mass Index (BMI) 26.4 Intake & Output: Intake and Output for Last 24 Hours 03/04/21 03/05/21 03/06/21 23:59 23:59 23:59 Intake Total 284.71 / 405.11 1200.84 / 1200.84 Output Total 900 / 900 Balance 284.71 / 405.11 300.84 / 300.84 Lab / Micro Data Result Diagrams: 03/06/21 04:30 03/06/21 04:30 Labs: Laboratory Results - last 24 hr 03/05/21 03/06/21 03/06/21 15:10 04:30 04:30 WBC 7.6 RBC 4.50 L Hgb 13.0 Hct 40.1 MCV 89.1 MCH 28.9 MCHC 32.4 RDW Std Deviation 46.3 H RDW Coeff of Eben 14.4 Plt Count 96 L MPV 11.0 Immature Gran % (Auto) 0.300 Neut % (Auto) 64.0 Lymph % (Auto) 19.5 [place] % (Auto) 13.1 H Eos % (Auto) 2.4 Baso % (Auto) 0.7 Absolute Neuts (auto) 4.9 Absolute Lymphs (auto) 1.49 Nucleated RBC % 0 Sodium 136 135 L Potassium 3.9 3.9 Chloride 102 103 Carbon Dioxide 26.0 25.0 Anion Gap 8 7 BUN 15 19 H Creatinine 1.06 0.94 Estim Creat Clear Calc 92.74 104.58 Est GFR (MDRD) Af Amer 97 111 Est GFR (MDRD) Non-Af 80 92 BUN/Creatinine Ratio 14.2 20.1 H Glucose 126 H 88 Calcium 9.3 8.6 Phosphorus 2.0 L Magnesium 1.7 Total Bilirubin 4.00 H AST 93 H ALT 65 H Alkaline Phosphatase 152 H Total Protein 8.1 Albumin 3.2 Globulin 4.9 H Albumin/Globulin Ratio 0.7 L Radiography Diagnostic Testing: Radiology Impression Liver Ultrasound 03/05/21 05:55 IMPRESSION: Fatty infiltration of the liver. 1.5 cm x 1.3 cm x 1.3 cm hypoechoic nodular density in the head of the pancreas. Electronically Signed: Cesar Liriano MD at 9:56 EDT , Service support , Physical Exam Narrative General:Sleeping, Oriented x3, Cooperative, No apparent distress, Well developed HEENT: Atraumatic Oral: Moist Mucosa Neck: Supple Lungs: Clear to auscultation Cardiovascular: HS I+II, regular, no murmurs Abdomen: Bowel Sounds Present, Soft, Non Tender Extremities: No edema Skin: No rashes, No breakdown Neurological: Grossly intact Psych/Mental Status: Appropriate Const alert, oriented x3 and no apparent distress General Appearance: cooperative HEENT normocephalic and hearing grossly normal bilaterally Eyes PERRL, EOMs intact bilaterally and conjunctivae normal Neck no lymphadenopathy Resp normal respiratory effort, no retractions, no use of accessory muscles and clear to auscultation bilaterally Cardio regular rate, regular rhythm, S1 normal heart sound, S2 normal heart sound and no murmurs GI normal to inspection, nondistended, normoactive bowel sounds, soft to palpation, non-tender and non-distended Extremity normal to inspection Skin no rashes or lesions noted and no wounds Neuro oriented x3, moves all extremities and no focal motor deficits Sensorium / Orientation: alert Psych affect normal Assessment & Plan Assessment/Plan (1) Alcohol withdrawal: (2) Abnormal LFTs: (3) Fatty infiltration of liver: (4) Pancreatic mass: PLAN: 1. Acute alcohol withdrawal, severe, remains on Precedex drip, continue on phenobarb taper Continue on folic acid, multivitamin, thiamine Continue on IV fluids 2. Elevated liver enzymes likely secondary to chronic alcohol use, slightly improving but total bilirubin is elevated We will get direct and indirect fractionation of bilirubin Ultrasound of the liver showed fatty infiltration, 1.5 cm x 1.3 cm x 1.3 cm hypoechoic nodular density in the head of the pancreas That has to be followed up in the outpatient Visit Charges Inpatient E&M: 74016 [facility] Hosp L2
[2021-03-06] MEDS: busPIRone 15 MG TABLET 7.5 MG PO ×2 (09:13→20:38)
[2021-03-06] MEDS: Pantoprazole Sodium 40 MG Tablet PO (09:13)
[2021-03-06] MEDS: Thiamine Hydrochloride 100 MG Tablet PO (09:14)
[2021-03-06] MEDS: Folic Acid 1 MG Tablet PO (09:14)
[2021-03-06 09:57] LABS: Bilirubin, Direct 1.73 mg/dL (0.00-0.30)
--- NOTE | 2021-03-06 10:26 | CASEMGMT ---
YOLIS reviewed information in chart by YANA, pt is to call his counselor Michele Somers upon discharge. HARVEY Burroughs
[2021-03-06] MEDS: 0.9% Normal Saline 1,000 ML 200 ML IV ×3 (12:27→22:06)
[2021-03-07] VITALS (28 sets, daily range): BP systolic 106–145; BP diastolic 61–97; PULSE 68–86; RESP 15–30; TEMP 36–36.6; O2SAT 94–100
[2021-03-07] MEDS: 0.9% Normal Saline 1,000 ML 200 ML IV ×2 (03:27→08:54)
[2021-03-07] MEDS: TITRATION PARAMETER CHANGE 1 EACH IV (03:39)
[2021-03-07] MEDS: Phenobarbital 32.4 MG Tablet PO ×4 (04:12→23:30)
[2021-03-07 04:33] LABS: ALB/GLOB Ratio 0.7 RATIO (0.9-2.4); AST(SGOT) 57 U/L (15-37); Alanine Aminotransfer ALT/SGPT 48 U/L (16-61); Albumin, Serum 2.9 g/dL (3.2-5.0); Alkaline Phosphatase 140 U/L (45-117); Anion Gap 5 (5-15); BUN 11 mg/dL (7-18); BUN/Creat Ratio 17.6 RATIO (10-20); Calcium,Total 8.2 mg/dL (8.5-10.1); Chloride 106 mmol/L (98-107); Creatinine, Serum 0.63 mg/dL (0.70-1.30); EST Glomerular Filtration Rate 147 mL/min (>60); Est Glom Filt Rate - Afr Amer 178 mL/min (>60); Estimated Creatinine Clearance 156.04 ml/min; Globulin 4.4 g/dL (2.2-4.2); Glucose 93 mg/dL (74-106); Magnesium 1.5 mg/dL (1.6-2.6); Phosphorus 2.9 mg/dL (2.5-4.9); Potassium 3.8 mmol/L (3.5-5.1); Protein, Total 7.3 g/dL (6.4-8.2); Sodium Level 136 mmol/L (136-145)
[2021-03-07] MEDS: Magnesium Sulfate 4gm/100mL 4 GM/100 ML IV.SOLN. IV (06:18)
[2021-03-07] MEDS: Sodium Chloride 0.65% 1 SPRAY SPRAY.BTL 2 SPRAY NASAL (06:49)
--- NOTE | 2021-03-07 07:13 | PN.CC_ITS ---
Subjective Subjective Patient did okay overnight. Patient is not reporting any issues with anxiety or tremulous at this time. Patient does remain on a Precedex drip. Patient required 1 dose of Ativan overnight. Patient is not reporting any pruritus. Patient is tolerating room air well. Objective Data Objective Data No significant bradycardia noted on telemetry Vital Signs: Vital Signs Temp Pulse Resp BP Pulse Ox 36.2 C L 82 20 H 123/88 H 99 03/07/21 04:00 03/07/21 07:00 03/07/21 07:00 03/07/21 07:00 03/07/21 07:00 Oxygen Delivery Method Room Air Weight: 89.9 kg Body Mass Index (BMI) 26.4 Intake & Output: Intake and Output for Last 24 Hours 03/05/21 03/06/21 03/07/21 23:59 23:59 23:59 Intake Total 284.71 / 405.11 5609.30 / 5613.89 1284.06 / 1284.06 Output Total 2800 / 2800 1500 / 1500 Balance 284.71 / 405.11 2809.30 / 2813.89 -215.94 / -215.94 Lab / Micro Data Result Diagrams: 03/06/21 04:30 03/07/21 04:05 Labs: Laboratory Results - last 24 hr 03/06/21 03/07/21 04:30 04:05 Sodium 136 Potassium 3.8 Chloride 106 Carbon Dioxide 25.0 Anion Gap 5 BUN 11 Creatinine 0.63 L Estim Creat Clear Calc 156.04 Est GFR (MDRD) Af Amer 178 Est GFR (MDRD) Non-Af 147 BUN/Creatinine Ratio 17.6 Glucose 93 Calcium 8.2 L Phosphorus 2.9 Magnesium 1.5 L Total Bilirubin 3.90 H 2.50 H Direct Bilirubin 1.73 H Indirect Bilirubin 2.20 H AST 57 H ALT 48 Alkaline Phosphatase 140 H Total Protein 7.3 Albumin 2.9 L Globulin 4.4 H Albumin/Globulin Ratio 0.7 L Physical Exam Const alert Constitutional Narrative: Oriented to self and place General Appearance: cooperative, disheveled and appears older than stated age; Negative for ill appearing Orientation / Consciousness: oriented to person and confused HEENT normocephalic Eyes PERRL and EOMs intact bilaterally Neck supple, no JVD and no carotid bruits Resp normal respiratory effort and clear to auscultation bilaterally Cardio regular rate and no murmurs GI normal to inspection, nondistended, normoactive bowel sounds and soft to palpa tion Extremity normal capillary refill General Extremity: Negative for edema Skin no rashes or lesions noted Neuro CN's II-XII intact bilaterally Psych cooperative and affect normal Assessment & Plan Assessment/Plan (1) Alcohol withdrawal: (2) Pancreatic mass: (3) OCD (obsessive compulsive disorder): (4) Anxiety: (5) Thrombocytopenia concurrent with and due to alcoholism: (6) Acute urinary retention: PLAN: RECOMMENDATIONS: 1. Continue Precedex and phenobarbital 2. Wean Precedex as tolerated. Continue as needed Ativan 3. Obtain electrolytes and replete if necessary on a daily basis 4. Continue folate acid, multivitamin and thiamine 5. Will require outpatient work-up for pancreatic mass 6. Voiding trial prior to discharge IMPRESSIONS: 1. Acute alcohol withdrawal/toxic encephalopathy Patient appears to be peaking with withdrawal symptoms at this time. We will continue with phenobarb. Precedex will be weaned as tolerated. Would continue Ativan as needed for breakthrough as Precedex will be slow to take effect with titrations. Patient will be at risk for refeeding syndrome with electrolyte abnormalities. Electrolytes will be sent daily. Repletion as necessary. Patient was slightly protracted course, but did have an alcohol level on presentation. 2. Pancreatic mass with fatty liver disease Unclear significance of mass in the pancreas. Patient unable to provide any additional history on if this is being followed already. Patient may require an ERCP versus EUS for evaluation. Anticipate stabilization of problem #1 prior to evaluation. Patient will be at risk for elevated blood sugars. Patient currently n.p.o. secondary to mental status. If blood sugars elevated on BMP, every 6 blood sugars may be indicated. 3. History of DTs/GERD/OCD Complicates care, management, recovery and prognosis. Patient appears to be hallucinating less at this time. 4. Acute urinary retention Clinical suspicion that this is secondary to medications. Patient will need a voiding trial prior to discharge. Low clinical suspicion for BPH given age. Patient is not showing any signs or symptoms of hematoma obstructing urine outflow. Renal function has remained stable. We will hold on any pelvic imaging at this time. Visit Charges Inpatient E&M: 58805 Subs Hosp L3
[2021-03-07] MEDS: 0.9% Saline Lock 10 ML Syringe IV ×2 (07:51→21:45)
[2021-03-07] MEDS: LORazepam 2 MG/ML Syringe IV ×4 (07:51→21:45)
[2021-03-07] MEDS: Folic Acid 1 MG Tablet PO (07:57)
[2021-03-07] MEDS: Pantoprazole Sodium 40 MG Tablet PO (07:57)
[2021-03-07] MEDS: busPIRone 15 MG TABLET 7.5 MG PO ×2 (07:57→23:47)
[2021-03-07] MEDS: Thiamine Hydrochloride 100 MG Tablet PO (07:57)
--- NOTE | 2021-03-07 10:00 | PN.HOSP_ITS ---
Subjective Subjective Patient was seen and examined. Remains on Precedex. No acute events overnight. Objective Data Objective Data Vital Signs: Vital Signs Temp Pulse Resp BP Pulse Ox 97.8 F 75 16 111/71 95 03/07/21 08:00 03/07/21 08:00 03/07/21 08:00 03/07/21 08:00 03/07/21 08:00 Oxygen Delivery Method Room Air Weight: 89.9 kg Body Mass Index (BMI) 26.4 Intake & Output: Intake and Output for Last 24 Hours 03/05/21 03/06/21 03/07/21 23:59 23:59 23:59 Intake Total 284.71 / 405.11 5609.30 / 5613.89 2300.00 / 2300.00 Output Total 2800 / 2800 1500 / 1500 Balance 284.71 / 405.11 2809.30 / 2813.89 800.00 / 800.00 Lab / Micro Data Result Diagrams: 03/06/21 04:30 03/07/21 04:05 Labs: Laboratory Results - last 24 hr 03/07/21 04:05 Sodium 136 Potassium 3.8 Chloride 106 Carbon Dioxide 25.0 Anion Gap 5 BUN 11 Creatinine 0.63 L Estim Creat Clear Calc 156.04 Est GFR (MDRD) Af Amer 178 Est GFR (MDRD) Non-Af 147 BUN/Creatinine Ratio 17.6 Glucose 93 Calcium 8.2 L Phosphorus 2.9 Magnesium 1.5 L Total Bilirubin 2.50 H AST 57 H ALT 48 Alkaline Phosphatase 140 H Total Protein 7.3 Albumin 2.9 L Globulin 4.4 H Albumin/Globulin Ratio 0.7 L Physical Exam Narrative General: Lethargic, Oriented x3, Cooperative, No apparent distress, Well developed HEENT: Atraumatic Oral: Moist Mucosa Neck: Supple Lungs: Clear to auscultation Cardiovascular: HS I+II, regular, no murmurs Abdomen: Bowel Sounds Present, Soft, Non Tender Extremities: No edema Skin: No rashes, No breakdown Neurological: Grossly intact Psych/Mental Status: Appropriate Assessment & Plan Assessment/Plan (1) Alcohol withdrawal: (2) Abnormal LFTs: (3) Fatty infiltration of liver: (4) Pancreatic mass: PLAN: 1. Acute alcohol withdrawal, severe, His CIWA scores remain high; 17 this morning Remains on Precedex drip, continue on phenobarb taper Continue on folic acid, multivitamin, thiamine Continue on IV fluids 2. Elevated liver enzymes likely secondary to chronic alcohol use, slightly improving Direct and indirect fractionation of bilirubin were both elevated Liver ultrasound shows fatty infiltration Will trend in the morning 3. Pancreatic mass Ultrasound of the liver showed fatty infiltration, 1.5 cm x 1.3 cm x 1.3 cm hypo echoic nodular density in the head of the pancreas Needs to followed up in the outpatient Visit Charges Inpatient E&M: 86826 Subs Hosp L3
[2021-03-08] VITALS (28 sets, daily range): BP systolic 84–150; BP diastolic 54–97; PULSE 63–113; RESP 12–185; TEMP 36–36.9; O2SAT 93–100
[2021-03-08] MEDS: 0.9% Saline Lock 10 ML Syringe IV ×4 (02:13→21:40)
[2021-03-08] MEDS: LORazepam 2 MG/ML Syringe IV ×2 (02:13→07:09)
[2021-03-08 03:54] LABS: ALB/GLOB Ratio 0.7 RATIO (0.9-2.4); AST(SGOT) 63 U/L (15-37); Alanine Aminotransfer ALT/SGPT 48 U/L (16-61); Albumin, Serum 3.1 g/dL (3.2-5.0); Alkaline Phosphatase 138 U/L (45-117); Anion Gap 7 (5-15); BUN 11 mg/dL (7-18); BUN/Creat Ratio 15.4 RATIO (10-20); Calcium,Total 8.8 mg/dL (8.5-10.1); Chloride 104 mmol/L (98-107); Creatinine, Serum 0.71 mg/dL (0.70-1.30); EST Glomerular Filtration Rate 126 mL/min (>60); Est Glom Filt Rate - Afr Amer 153 mL/min (>60); Estimated Creatinine Clearance 138.46 ml/min; Globulin 4.6 g/dL (2.2-4.2); Glucose 93 mg/dL (74-106); Potassium 3.8 mmol/L (3.5-5.1); Protein, Total 7.7 g/dL (6.4-8.2); Sodium Level 135 mmol/L (136-145)
[2021-03-08] MEDS: TITRATION PARAMETER CHANGE 1 EACH IV (04:13)
--- NOTE | 2021-03-08 07:40 | PCM.PN.INT ---
Subjective Subjective Patient continues to have intermittent agitation requiring Precedex with an additional 3 doses of as needed Ativan. Patient continues to protect his airway. Patient is actively hallucinating intermittently per nursing staff. Objective Data Objective Data Vital Signs: Vital Signs Temp Pulse Resp BP Pulse Ox 36.3 C L 80 18 125/89 H 95 03/08/21 07:03 03/08/21 07:21 03/08/21 07:03 03/08/21 07:03 03/08/21 07:03 Oxygen Delivery Method Room Air Weight: 87.3 kg Body Mass Index (BMI) 26.4 Intake & Output: Intake and Output for Last 24 Hours 03/06/21 03/07/21 03/08/21 23:59 23:59 23:59 Intake Total 5609.30 / 5613.89 3600.00 / 3851.25 722.46 / 722.46 Output Total 2800 / 2800 3575 / 4125 1000 / 1000 Balance 2809.30 / 2813.89 25.00 / -273.75 -277.54 / -277.54 Lab / Micro Data Result Diagrams: 03/06/21 04:30 03/08/21 03:20 Labs: Laboratory Results - last 24 hr 03/08/21 03:20 Sodium 135 L Potassium 3.8 Chloride 104 Carbon Dioxide 24.0 Anion Gap 7 BUN 11 Creatinine 0.71 Estim Creat Clear Calc 138.46 Est GFR (MDRD) Af Amer 153 Est GFR (MDRD) Non-Af 126 BUN/Creatinine Ratio 15.4 Glucose 93 Calcium 8.8 Total Bilirubin 2.40 H AST 63 H ALT 48 Alkaline Phosphatase 138 H Total Protein 7.7 Albumin 3.1 L Globulin 4.6 H Albumin/Globulin Ratio 0.7 L Physical Exam Const alert Constitutional Narrative: Oriented to self General Appearance: cooperative, disheveled and appears older than stated age; Negative for ill appearing Orientation / Consciousness: oriented to person and confused HEENT normocephalic Eyes PERRL and EOMs intact bilaterally Neck supple, no JVD and no carotid bruits Resp normal respiratory effort and clear to auscultation bilaterally Cardio regular rate and no murmurs GI normal to inspection, nondistended, normoactive bowel sounds and soft to palpation Extremity normal capillary refill General Extremity: Negative for edema Skin no rashes or lesions noted Neuro CN's II-XII intact bilaterally Psych cooperative and affect normal Assessment & Plan Assessment/Plan (1) Alcohol withdrawal: (2) Pancreatic mass: (3) OCD (obsessive compulsive disorder): (4) Anxiety: (5) Thrombocytopenia concurrent with and due to alcoholism: (6) Acute urinary retention: PLAN: RECOMMENDATIONS: 1. Continue Precedex and phenobarbital 2. Wean Precedex as tolerated. Continue as needed Ativan 3. Obtain electrolytes and replete if necessary on a daily basis 4. Likely okay to discontinue thiamine and folate from my perspective 5. Will require outpatient work-up for pancreatic mass 6. Voiding trial prior to discharge 7. Concern for baseline psychiatric condition. Start Seroquel IMPRESSIONS: 1. Acute alcohol withdrawal/toxic encephalopathy Patient appears to be peaking with withdrawal symptoms at this time. We will continue with phenobarb. Precedex will be weaned as tolerated. Would continue Ativan as needed for breakthrough as Precedex will be slow to take effect with titrations. Patient now relatively protracted from last alcohol. Some concern that hallucinations are secondary to an underlying schizophrenia or schizoaffective disorder. Will initiate Seroquel. Continue to wean Precedex as tolerated. Patient would benefit from psychiatric evaluation in my opinion. 2. Pancreatic mass with fatty liver disease Unclear significance of mass in the pancreas. Patient unable to provide any additional history on if this is being followed already. Patient may require an ERCP versus EUS for evaluation. Anticipate stabilization of problem #1 prior to evaluation. Patient will be at risk for elevated blood sugars. Continue p.o. diet as tolerated 3. History of DTs/GERD/OCD Complicates care, management, recovery and prognosis. Patient appears to continue to be hallucinating despite lack of alcohol for over 4 days. 4. Acute urinary retention Clinical suspicion that this is secondary to medications. Patient will need a voiding trial prior to discharge. Low clinical suspicion for BPH given age. Patient is not showing any signs or symptoms of hematoma obstructing urine outflow. Renal function has remained stable. We will hold on any pelvic imaging at this time. Visit Charges Inpatient E&M: 59311 Subs Hosp L3
[2021-03-08] MEDS: QUEtiapine 25 MG Tablet 50 MG PO (07:53)
[2021-03-08] MEDS: Pantoprazole Sodium 40 MG Tablet PO (07:53)
[2021-03-08] MEDS: busPIRone 15 MG TABLET 7.5 MG PO ×2 (07:53→21:39)
[2021-03-08] MEDS: Folic Acid 1 MG Tablet PO (07:53)
[2021-03-08] MEDS: Thiamine Hydrochloride 100 MG Tablet PO (07:54)
--- NOTE | 2021-03-08 10:28 | PCM.PN.HOSP ---
Subjective Subjective Patient was seen and examined. Lethargic. Precedex being weaned off. No other complaints. Objective Data Objective Data Vital Signs: Vital Signs Temp Pulse Resp BP Pulse Ox 97.3 F L 72 16 107/68 95 03/08/21 08:16 03/08/21 10:00 03/08/21 10:00 03/08/21 10:00 03/08/21 10:00 Oxygen Delivery Method Room Air Weight: 87.3 kg Body Mass Index (BMI) 26.4 Intake & Output: Intake and Output for Last 24 Hours 03/06/21 03/07/21 03/08/21 23:59 23:59 23:59 Intake Total 5609.30 / 5613.89 3600.00 / 3851.25 781.38 / 781.38 Output Total 2800 / 2800 3575 / 4125 1000 / 1000 Balance 2809.30 / 2813.89 25.00 / -273.75 -218.62 / -218.62 Lab / Micro Data Result Diagrams: 03/06/21 04:30 03/08/21 03:20 Labs: Laboratory Results - last 24 hr 03/08/21 03:20 Sodium 135 L Potassium 3.8 Chloride 104 Carbon Dioxide 24.0 Anion Gap 7 BUN 11 Creatinine 0.71 Estim Creat Clear Calc 138.46 Est GFR (MDRD) Af Amer 153 Est GFR (MDRD) Non-Af 126 BUN/Creatinine Ratio 15.4 Glucose 93 Calcium 8.8 Total Bilirubin 2.40 H AST 63 H ALT 48 Alkaline Phosphatase 138 H Total Protein 7.7 Albumin 3.1 L Globulin 4.6 H Albumin/Globulin Ratio 0.7 L Physical Exam Narrative General: Lethargic, Cooperative, No apparent distress, Well developed HEENT: Atraumatic Oral: Moist Mucosa Neck: Supple Lungs: Clear to auscultation Cardiovascular: HS I+II, regular, no murmurs Abdomen: Bowel Sounds Present, Soft, Non Tender Extremities: No edema Skin: No rashes, No breakdown Neurological: Grossly intact Psych/Mental Status: Appropriate Const alert, oriented x3 and no apparent distress General Appearance: cooperative HEENT normocephalic and hearing grossly normal bilaterally Eyes PERRL, EOMs intact bilaterally and conjunctivae normal Neck no lymphadenopathy Resp normal respiratory effort, no retractions, no use of accessory muscles and clear to auscultation bilaterally Cardio regular rate, regular rhythm, S1 normal heart sound, S2 normal heart sound and no murmurs GI normal to inspection, nondistended, normoactive bowel sounds, soft to palpation, non-tender and non-distended Extremity normal to inspection Skin no rashes or lesions noted and no wounds Neuro oriented x3, moves all extremities and no focal motor deficits Sensorium / Orientation: alert Psych affect normal Assessment & Plan Assessment/Plan (1) Alcohol withdrawal: (2) Abnormal LFTs: (3) Fatty infiltration of liver: (4) Pancreatic mass: PLAN: 1. Acute alcohol withdrawal, severe, CIWA score this morning was 20 Remains on Precedex drip, continue on phenobarb taper Continue on folic acid, multivitamin, thiamine Continue on IV fluids 2. Elevated liver enzymes likely secondary to chronic alcohol use, improving Liver ultrasound shows fatty infiltration Will repeat labs 3. Pancreatic mass Ultrasound of the liver showed 1.5 cm x 1.3 cm x 1.3 cm hypoechoic nodular density in the head of the pancreas Needs to followed up in the outpatient Visit Charges Inpatient E&M: 57352 Subs Hosp L3
[2021-03-08] MEDS: hydrOXYzine PAM 25 MG Capsule 50 MG PO ×2 (11:22→21:39)
[2021-03-08] MEDS: Gabapentin 300 MG Capsule PO ×2 (12:42→21:39)
[2021-03-08] MEDS: LORazepam 1 MG Tablet 2 MG PO ×4 (13:48→23:22)
[2021-03-08] MEDS: Haloperidol Lactate 5 MG/ML Vial 3 MG IV (16:45)
[2021-03-08] MEDS: QUEtiapine 100 MG Tablet PO (21:39)
[2021-03-08] MEDS: traZODone 100 MG Tablet PO (23:23)
[2021-03-09] VITALS (28 sets, daily range): BP systolic 67–150; BP diastolic 41–97; PULSE 85–133; RESP 12–26; TEMP 36.2–36.8; O2SAT 92–99
[2021-03-09 04:14] LABS: ALB/GLOB Ratio 0.6 RATIO (0.9-2.4); AST(SGOT) 76 U/L (15-37); Alanine Aminotransfer ALT/SGPT 53 U/L (16-61); Albumin, Serum 3.3 g/dL (3.2-5.0); Alkaline Phosphatase 151 U/L (45-117); Anion Gap 8 (5-15); BUN 11 mg/dL (7-18); BUN/Creat Ratio 13.2 RATIO (10-20); Calcium,Total 9.3 mg/dL (8.5-10.1); Chloride 104 mmol/L (98-107); Creatinine, Serum 0.83 mg/dL (0.70-1.30); EST Glomerular Filtration Rate 106 mL/min (>60); Est Glom Filt Rate - Afr Amer 128 mL/min (>60); Estimated Creatinine Clearance 118.44 ml/min; Globulin 5.1 g/dL (2.2-4.2); Glucose 80 mg/dL (74-106); Potassium 4.5 mmol/L (3.5-5.1); Protein, Total 8.4 g/dL (6.4-8.2); Sodium Level 137 mmol/L (136-145)
[2021-03-09] MEDS: TITRATION PARAMETER CHANGE 1 EACH IV (05:09)
--- NOTE | 2021-03-09 06:10 | EKG12_ITS ---
Test Reason : PROLONGED QT Blood Pressure : / mmHG Vent. Rate : 088 BPM Atrial Rate : 088 BPM P-R Int : 146 ms QRS Dur : 080 ms QT Int : 394 ms P-R-T Axes : 051 067 065 degrees QTc Int : 476 ms Normal sinus rhythm Normal ECG When compared with ECG of 03-MAR-2021 16:33, T wave amplitude has increased in Anterior leads Confirmed by LAUREN MOON, NAYELI ([id number]), make up editor ANTONIO BOLES ([id number]) on 03/13/2021 9:45:38 AM Referred By: JOSE Confirmed By:NAYELI AGUILAR MD
[2021-03-09] MEDS: Gabapentin 300 MG Capsule PO (06:25)
[2021-03-09] MEDS: hydrOXYzine PAM 25 MG Capsule 50 MG PO (06:25)
[2021-03-09] MEDS: LORazepam 1 MG Tablet 2 MG PO (06:26)
--- NOTE | 2021-03-09 07:11 | PCM.PN.INT ---
Subjective Subjective The patient remains very impulsive and difficult to redirect. Patient has not required any restraints, but nursing has had to redirect multiple times. Patient is on a Precedex drip despite Seroquel and Ativan. Objective Data Objective Data EKG was obtained this morning showing an acceptable QTC. Vital Signs: Vital Signs Temp Pulse Resp BP Pulse Ox 36.2 C L 100 14 115/68 94 03/09/21 07:00 03/09/21 07:00 03/09/21 07:00 03/09/21 07:00 03/09/21 07:00 Oxygen Delivery Method Room Air Weight: 86.5 kg Body Mass Index (BMI) 26.4 Intake & Output: Intake and Output for Last 24 Hours 03/07/21 03/08/21 03/09/21 23:59 23:59 23:59 Intake Total 3600.00 / 3851.25 846.53 / 973.03 567.68 / 567.68 Output Total 3575 / 4125 1900 / 2225 1125 / 1125 Balance 25.00 / -273.75 -1053.47 / -1251.97 -557.32 / -557.32 Lab / Micro Data Result Diagrams: 03/06/21 04:30 03/09/21 03:20 Labs: Laboratory Results - last 24 hr 03/09/21 03:20 Sodium 137 Potassium 4.5 Chloride 104 Carbon Dioxide 25.0 Anion Gap 8 BUN 11 Creatinine 0.83 Estim Creat Clear Calc 118.44 Est GFR (MDRD) Af Amer 128 Est GFR (MDRD) Non-Af 106 BUN/Creatinine Ratio 13.2 Glucose 80 Calcium 9.3 Total Bilirubin 2.50 H AST 76 H ALT 53 Alkaline Phosphatase 151 H Total Protein 8.4 H Albumin 3.3 Globulin 5.1 H Albumin/Globulin Ratio 0.6 L Physical Exam Const alert Constitutional Narrative: Oriented to self only General Appearance: cooperative, disheveled and appears older than stated age; Negative for ill appearing Orientation / Consciousness: oriented to person and confused HEENT normocephalic Eyes PERRL and EOMs intact bilaterally Neck supple, no JVD and no carotid bruits Resp normal respiratory effort and clear to auscultation bilaterally Cardio regular rate and no murmurs GI normal to inspection, nondistended, normoactive bowel sounds and soft to palpation Extremity normal capillary refill General Extremity: Negative for edema Skin no rashes or lesions noted Neuro CN's II-XII intact bilaterally Psych cooperative and affect normal Assessment & Plan Assessment/Plan (1) Alcohol withdrawal: (2) Pancreatic mass: (3) OCD (obsessive compulsive disorder): (4) Anxiety: (5) Thrombocytopenia concurrent with and due to alcoholism: (6) Acute urinary retention: PLAN: RECOMMENDATIONS: 1. Continue Precedex and phenobarbital 2. Wean Precedex as tolerated. Continue as needed Ativan 3. Obtain electrolytes and replete if necessary on a daily basis 4. Likely okay to discontinue thiamine and folate from my perspective 5. Will require outpatient work-up for pancreatic mass 6. Voiding trial prior to discharge 7. Concern for baseline psychiatric condition. Titrate up Seroquel IMPRESSIONS: 1. Acute alcohol withdrawal/toxic encephalopathy Patient appears to be peaking with withdrawal symptoms at this time. We will continue with phenobarb. Precedex will be weaned as tolerated. Would continue Ativan as needed for breakthrough as Precedex will be slow to take effect with titrations. Patient now relatively protracted from last alcohol. Some concern that hallucinations are secondary to an underlying schizophrenia or schizoaffective disorder. Will continue to titrate Seroquel. Continue to wean Precedex as tolerated. Patient would benefit from psychiatric evaluation in my opinion. 2. Pancreatic mass with fatty liver disease Unclear significance of mass in the pancreas. Patient unable to provide any additional history on if this is being followed already. Patient may require an ERCP versus EUS for evaluation. Anticipate stabilization of problem #1 prior to evaluation. Patient will be at risk for elevated blood sugars. Continue p.o. diet as tolerated 3. History of DTs/GERD/OCD Complicates care, management, recovery and prognosis. Patient appears to continue to be hallucinating despite lack of alcohol for over 4 days. 4. Acute urinary retention Clinical suspicion that this is secondary to medications. Patient will need a voiding trial prior to discharge. Low clinical suspicion for BPH given age. Patient is not showing any signs or symptoms of hematoma obstructing urine outflow. Renal function has remained stable. We will hold on any pelvic imaging at this time. Nursing has had to redirect patient multiple times for pulling on his [place]ri[place]. Visit Charges Inpatient E&M: 64880 Subs Hosp L3
[2021-03-09] MEDS: Thiamine Hydrochloride 100 MG Tablet PO (08:14)
[2021-03-09] MEDS: Folic Acid 1 MG Tablet PO (08:14)
[2021-03-09] MEDS: Polyethylene Glycol 3350 17 GM PACKET PO (08:45)
[2021-03-09] MEDS: busPIRone 15 MG TABLET 7.5 MG PO ×2 (08:45→20:51)
[2021-03-09] MEDS: Pantoprazole Sodium 40 MG Tablet PO (08:46)
[2021-03-09] MEDS: QUEtiapine 100 MG Tablet 150 MG PO (08:49)
[2021-03-09] MEDS: LORazepam 2 MG/ML Syringe IV ×3 (10:01→19:42)
--- NOTE | 2021-03-09 10:30 | CASEMGMT ---
Addendum entered by Gwen Weber 03/09/21 13:19: Social Work Received call from [facility] inquiring if phone assessment would be adequate. SW and RN feel in person assessment would be best for pt. [facility] states she will meet with pt in person sometime later today for assessment. Nursing updated. MARICHUY Whitt Addendum entered by Gwen Weber 03/09/21 11:30: Social Work Return call from [facility] who requests medical information be faxed to Crisis and due to busy schedule they plan to assess pt over the phone instead of in person. Clinical information faxed and nursing updated. MARICHUY Whitt Original Note: Social Work SW attended multi disciplinary rounds. PT continues to display hallucinations and is unable to converse with staff appropriately. Precedex continues and Seroquel has been started. Physician indicating issues at this time may be related to psychiatric issues rather than alcohol detox. SW placed referral to [facility]. Pt information provided and [facility] states she will notify [place] and request an in person assessment. Dr. Scherer updated. MARICHUY Whitt
[2021-03-09] MEDS: 0.9% Normal Saline 1,000 ML 999 ML IV (14:23)
--- NOTE | 2021-03-09 15:06 | CASEMGMT ---
Social Work Sabrina from [facility] here and visited patient. Pt is unable to be awaken and therefore Sabrina unable to assess. Sabrina spoke with this SW, nursing and Dr. Scherer and information provided. Sabrina states she will reach out to psychiatric facilities that accept dual diagnosis for bed availability and appropriateness of placement. Sabrina is uncertain if pt would be accepted and is offering idea that pt be transferred to an [facility] that has a detox unit that can assess pt further. Nursing updated. Sabrina will follow up with ICU staff when she receives information from psychiatric facilities. MARICHUY Whitt
--- NOTE | 2021-03-09 15:47 | PN.HOSP_ITS ---
Subjective Subjective Patient was seen and examined. He is still hallucinating. No new complains Objective Data Objective Data Vital Signs: Vital Signs Temp Pulse Resp BP Pulse Ox 98.2 F 93 15 100/76 99 03/09/21 12:00 03/09/21 15:00 03/09/21 15:00 03/09/21 15:00 03/09/21 15:00 Oxygen Delivery Method Room Air Weight: 86.5 kg Body Mass Index (BMI) 26.4 Intake & Output: Intake and Output for Last 24 Hours 03/07/21 03/08/21 03/09/21 23:59 23:59 23:59 Intake Total 3600.00 / 3851.25 846.53 / 973.03 1822.84 / 1822.84 Output Total 3575 / 4125 1900 / 2225 1200 / 1200 Balance 25.00 / -273.75 -1053.47 / -1251.97 622.84 / 622.84 Lab / Micro Data Result Diagrams: 03/06/21 04:30 03/09/21 03:20 Labs: Laboratory Results - last 24 hr 03/09/21 03:20 Sodium 137 Potassium 4.5 Chloride 104 Carbon Dioxide 25.0 Anion Gap 8 BUN 11 Creatinine 0.83 Estim Creat Clear Calc 118.44 Est GFR (MDRD) Af Amer 128 Est GFR (MDRD) Non-Af 106 BUN/Creatinine Ratio 13.2 Glucose 80 Calcium 9.3 Total Bilirubin 2.50 H AST 76 H ALT 53 Alkaline Phosphatase 151 H Total Protein 8.4 H Albumin 3.3 Globulin 5.1 H Albumin/Globulin Ratio 0.6 L Physical Exam Narrative General: Lethargic, Cooperative, No apparent distress, Well developed HEENT: Atraumatic Oral: Moist Mucosa Neck: Supple Lungs: Clear to auscultation Cardiovascular: HS I+II, regular, no murmurs Abdomen: Bowel Sounds Present, Soft, Non Tender Extremities: No edema Skin: No rashes, No breakdown Neurological: Grossly intact Psych/Mental Status: Appropriate Const alert, oriented x3 and no apparent distress General Appearance: cooperative HEENT normocephalic and hearing grossly normal bilaterally Eyes PERRL, EOMs intact bilaterally and conjunctivae normal Neck no lymphadenopathy Resp normal respiratory effort, no retractions, no use of accessory muscles and clear to auscultation bilaterally Cardio regular rate, regular rhythm, S1 normal heart sound, S2 normal heart sound and n o murmurs GI normal to inspection, nondistended, normoactive bowel sounds, soft to palpation, non-tender and non-distended Extremity normal to inspection Skin no rashes or lesions noted and no wounds Neuro oriented x3, moves all extremities and no focal motor deficits Sensorium / Orientation: alert Psych affect normal Assessment & Plan Assessment/Plan (1) Alcohol withdrawal: (2) Abnormal LFTs: (3) Fatty infiltration of liver: (4) Pancreatic mass: PLAN: 1. Acute alcohol withdrawal, severe, CIWA score remain high Remains on Precedex drip, continue on phenobarb taper Continue on folic acid, multivitamin, thiamine Continue on IV fluids 2. Elevated liver enzymes likely secondary to chronic alcohol use, improving Liver ultrasound shows fatty infiltration Will repeat labs 3. Pancreatic mass Ultrasound of the liver showed 1.5 cm x 1.3 cm x 1.3 cm hypoechoic nodular density in the head of the pancreas Needs to followed up in the outpatient Visit Charges Inpatient E&M: 09955 Subs Hosp L2
--- NOTE | 2021-03-09 18:32 | NURSING ---
1830- almodovar removed d/t pt frequently pulling at catheter and agitation.
--- NOTE | 2021-03-09 19:40 | NURSING ---
CIWA PRN completed, pt cont trying to get out of bed despite verbal redirection;PRN ativan given as per orders.
[2021-03-09] MEDS: 0.9% Saline Lock 10 ML Syringe IV ×2 (19:42→20:48)
[2021-03-09] MEDS: Haloperidol Lactate 5 MG/ML Vial 3 MG IV (20:49)
[2021-03-09] MEDS: QUEtiapine 100 MG Tablet 200 MG PO (20:51)
[2021-03-10] VITALS (25 sets, daily range): BP systolic 87–140; BP diastolic 73–116; PULSE 98–125; RESP 15–24; TEMP 36.6–37.2; O2SAT 94–98
[2021-03-10] MEDS: 0.9% Saline Lock 10 ML Syringe IV ×3 (03:31→20:15)
[2021-03-10] MEDS: Haloperidol Lactate 5 MG/ML Vial 3 MG IV (03:31)
[2021-03-10 03:41] LABS: Absolute Lymphocyte Count 1.16 X10^3/uL (0.83-4.51); Absolute Neutrophil Count 3.2 X10^3/uL (2.0-7.7); Basophil# 0.05 X10^3/uL; Basophil% 0.9 % (0-1); Eosinophil# 0.08 X10^3/uL; Eosinophils% 1.4 % (0-5); Hematocrit 41.2 % (40-54); Hemoglobin 13.2 g/dL (13.0-16.5); Lymphocyte # 1.16 X10^3/ul (0.83-4.51); Mean Corpuscular Hgb 29.4 pg (27.0-32.0); Mean Corpuscular Volume 91.8 fL (80-94); Mean Platelet Vol. 9.9 fl (6.2-12.0); Monocyte% 18.1 % (0-10); NRBC Flagged by Analyzer 0 % (0-5); Neutrophil # 3.22 X10^3/uL (2.7-7.7); Neutrophil % 58.2 % (47-70); Platelet Count 146 K/mm3 (150-450); RBC Distribution Width CV 14.8 % (11.6-14.6); RBC Distribution Width SD 49.8 fl (35.1-43.9); Red Blood Count 4.49 M/mm3 (4.6-6.2); White Blood Count 5.5 K/mm3 (4.4-11.0)
[2021-03-10 04:04] LABS: ALB/GLOB Ratio 0.7 RATIO (0.9-2.4); AST(SGOT) 62 U/L (15-37); Alanine Aminotransfer ALT/SGPT 50 U/L (16-61); Albumin, Serum 3.2 g/dL (3.2-5.0); Alkaline Phosphatase 139 U/L (45-117); Anion Gap 6 (5-15); BUN 15 mg/dL (7-18); BUN/Creat Ratio 14.7 RATIO (10-20); Calcium,Total 9.1 mg/dL (8.5-10.1); Chloride 105 mmol/L (98-107); Creatinine, Serum 1.02 mg/dL (0.70-1.30); EST Glomerular Filtration Rate 84 mL/min (>60); Est Glom Filt Rate - Afr Amer 101 mL/min (>60); Estimated Creatinine Clearance 96.38 ml/min; Globulin 4.6 g/dL (2.2-4.2); Glucose 83 mg/dL (74-106); Potassium 3.9 mmol/L (3.5-5.1); Protein, Total 7.8 g/dL (6.4-8.2); Sodium Level 138 mmol/L (136-145)
--- NOTE | 2021-03-10 07:09 | PCM.PN.INT ---
Subjective Subjective Patient did okay overnight. Patient did receive 2 doses of Ativan earlier in the evening yesterday with little to no effect. Patient did receive Haldol also and this was much more effective. Patient Seroquel was titrated up. Patient remains confused and is actively describing auditory and visual hallucinations. Patient does appear to be more directable. Patient has had increased residuals requiring straight cath overnight Psychiatry reportedly states that this is not consistent with a psychiatric illness and is not interested in inpatient therapy at this time. Objective Data Objective Data Vital Signs: Vital Signs Temp Pulse Resp BP Pulse Ox 37.1 C 122 H 22 H 136/101 H 94 03/10/21 04:00 03/10/21 06:00 03/10/21 06:00 03/10/21 06:00 03/10/21 04:00 Oxygen Delivery Method Room Air Weight: 86.2 kg Body Mass Index (BMI) 26.4 Intake & Output: Intake and Output for Last 24 Hours 03/08/21 03/09/21 03/10/21 23:59 23:59 23:59 Intake Total 846.53 / 973.03 2302.84 / 2302.84 0 / 0 Output Total 1900 / 2225 1800 / 1800 725 / 725 Balance -1053.47 / -1251.97 502.84 / 502.84 -725 / -725 Lab / Micro Data Result Diagrams: 03/10/21 03:30 03/10/21 03:30 Labs: Laboratory Results - last 24 hr 03/10/21 03/10/21 03:30 03:30 WBC 5.5 RBC 4.49 L Hgb 13.2 Hct 41.2 MCV 91.8 MCH 29.4 MCHC 32.0 RDW Std Deviation 49.8 H RDW Coeff of Eben 14.8 H Plt Count 146 L MPV 9.9 Immature Gran % (Auto) 0.400 Neut % (Auto) 58.2 Lymph % (Auto) 21.0 [place] % (Auto) 18.1 H Eos % (Auto) 1.4 Baso % (Auto) 0.9 Absolute Neuts (auto) 3.2 Absolute Lymphs (auto) 1.16 Nucleated RBC % 0 Sodium 138 Potassium 3.9 Chloride 105 Carbon Dioxide 27.0 Anion Gap 6 BUN 15 Creatinine 1.02 Estim Creat Clear Calc 96.38 Est GFR (MDRD) Af Amer 101 Est GFR (MDRD) Non-Af 84 BUN/Creatinine Ratio 14.7 Glucose 83 Calcium 9.1 Total Bilirubin 1.90 H AST 62 H ALT 50 Alkaline Phosphatase 139 H Total Protein 7.8 Albumin 3.2 Globulin 4.6 H Albumin/Globulin Ratio 0.7 L Physical Exam Const alert Constitutional Narrative: Oriented to self only General Appearance: cooperative, disheveled and appears older than stated age; Negative for ill appearing Orientation / Consciousness: oriented to person and confused HEENT normocephalic Eyes PERRL and EOMs intact bilaterally Neck supple, no JVD and no carotid bruits Resp normal respiratory effort and clear to auscultation bilaterally Cardio regular rate and no murmurs GI normal to inspection, nondistended, normoactive bowel sounds and soft to palpation Extremity normal capillary refill General Extremity: Negative for edema Skin no rashes or lesions noted Neuro CN's II-XII intact bilaterally Psych cooperative and affect normal Assessment & Plan Assessment/Plan (1) Alcohol withdrawal: (2) Pancreatic mass: (3) OCD (obsessive compulsive disorder): (4) Anxiety: (5) Thrombocytopenia concurrent with and due to alcoholism: (6) Acute urinary retention: PLAN: RECOMMENDATIONS: 1. Continue Seroquel and Haldol 2. Consider discontinuation of Ativan therapy 3. Obtain electrolytes and replete if necessary on a daily basis 4. Will likely require psychiatric evaluation at some point 5. Will require outpatient work-up for pancreatic mass 6. Consider discontinuation of Vistaril given urinary retention 7. Hemodynamically stable on room air. Will sign off from a critical care perspective 8. Okay to leave the intensive care unit IMPRESSIONS: 1. Acute alcohol withdrawal/toxic encephalopathy Patient appears to be peaking with withdrawal symptoms at this time. We will continue with phenobarb. Precedex will be weaned as tolerated. Would continue Ativan as needed for breakthrough as Precedex will be slow to take effect with titrations. Patient now relatively protracted from last alcohol. Some concern that hallucinations are secondary to an underlying schizophrenia or schizoaffective disorder. Patient will likely require some psychiatric evaluation at some point in my opinion. Continue with Seroquel and Haldol. Likely okay to discontinue Ativan and CIWA from my perspective, but defer to hospitalist. 2. Pancreatic mass with fatty liver disease Unclear significance of mass in the pancreas. Patient unable to provide any additional history on if this is being followed already. Patient may require an ERCP versus EUS for evaluation. Anticipate stabilization of problem #1 prior to evaluation. Patient will be at risk for elevated blood sugars. Continue p.o. diet as tolerated 3. History of DTs/GERD/OCD Complicates care, management, recovery and prognosis. Patient appears to continue to be hallucinating despite lack of alcohol for over 4 days. Consider discontinuation of Ativan as this may be an exacerbating delirium 4. Acute urinary retention Clinical suspicion that this is secondary to medications. Patient will need a voiding trial prior to discharge. Low clinical suspicion for BPH given age. Patient is not showing any signs or symptoms of hematoma obstructing urine outflow. Renal function has remained stable. We will hold on any pelvic imaging at this time. Patient may benefit from discontinuation of Vistaril as this could exacerbate urinary retention. Visit Charges Inpatient E&M: 51834 Subs Hosp L3
[2021-03-10] MEDS: QUEtiapine 100 MG Tablet 200 MG PO (08:17)
[2021-03-10] MEDS: Polyethylene Glycol 3350 17 GM PACKET PO (08:18)
[2021-03-10] MEDS: busPIRone 15 MG TABLET 7.5 MG PO ×2 (08:18→21:06)
[2021-03-10] MEDS: Pantoprazole Sodium 40 MG Tablet PO (08:18)
[2021-03-10] MEDS: Haloperidol Lactate 5 MG/ML Vial IV ×3 (09:16→20:15)
--- NOTE | 2021-03-10 10:03 | PCM.PN.HOSP ---
Subjective Subjective Patient seen and examined. Off Precedex drip. He is still confused and hallucinating. Alert oriented to self only. Objective Data Objective Data Vital Signs: Vital Signs Temp Pulse Resp BP Pulse Ox 98.5 F 124 H 18 134/105 H 96 03/10/21 08:00 03/10/21 09:00 03/10/21 09:00 03/10/21 09:00 03/10/21 09:00 Oxygen Delivery Method Room Air Weight: 86.2 kg Body Mass Index (BMI) 26.4 Intake & Output: Intake and Output for Last 24 Hours 03/08/21 03/09/21 03/10/21 23:59 23:59 23:59 Intake Total 846.53 / 973.03 2302.84 / 2302.84 0 / 0 Output Total 1900 / 2225 1800 / 1800 925 / 925 Balance -1053.47 / -1251.97 502.84 / 502.84 -925 / -925 Lab / Micro Data Result Diagrams: 03/10/21 03:30 03/10/21 03:30 Labs: Laboratory Results - last 24 hr 03/10/21 03/10/21 03:30 03:30 WBC 5.5 RBC 4.49 L Hgb 13.2 Hct 41.2 MCV 91.8 MCH 29.4 MCHC 32.0 RDW Std Deviation 49.8 H RDW Coeff of Eben 14.8 H Plt Count 146 L MPV 9.9 Immature Gran % (Auto) 0.400 Neut % (Auto) 58.2 Lymph % (Auto) 21.0 [place] % (Auto) 18.1 H Eos % (Auto) 1.4 Baso % (Auto) 0.9 Absolute Neuts (auto) 3.2 Absolute Lymphs (auto) 1.16 Nucleated RBC % 0 Sodium 138 Potassium 3.9 Chloride 105 Carbon Dioxide 27.0 Anion Gap 6 BUN 15 Creatinine 1.02 Estim Creat Clear Calc 96.38 Est GFR (MDRD) Af Amer 101 Est GFR (MDRD) Non-Af 84 BUN/Creatinine Ratio 14.7 Glucose 83 Calcium 9.1 Total Bilirubin 1.90 H AST 62 H ALT 50 Alkaline Phosphatase 139 H Total Protein 7.8 Albumin 3.2 Globulin 4.6 H Albumin/Globulin Ratio 0.7 L Physical Exam Narrative General: Lethargic, Cooperative, No apparent distress, Well developed HEENT: Atraumatic Oral: Moist Mucosa Neck: Supple Lungs: Clear to auscultation Cardiovascular: HS I+II, regular, no murmurs Abdomen: Bowel Sounds Present, Soft, Non Tender Extremities: No edema Skin: No rashes, No breakdown Neurological: Grossly intact Psych/Mental Status: Appropriate Assessment & Plan Assessment/Plan (1) Alcohol withdrawal: (2) Abnormal LFTs: (3) Fatty infiltration of liver: (4) Pancreatic mass: PLAN: 1. Acute alcohol withdrawal, severe, patient remains persistently confused. Possible underlying psychiatric disease. CIWA score remain high. Off Precedex and phenobarb On seroquel, haldol prn Continue on folic acid, multivitamin, thiamine Continue on IV fluids 2. Possible psychosis with persistent hallucinations On increased Seroquel and Haldol prn 3. Elevated liver enzymes likely secondary to chronic alcohol use, improving Liver ultrasound shows fatty infiltration 4. Pancreatic mass Ultrasound of the liver showed 1.5 cm x 1.3 cm x 1.3 cm hypoechoic nodular density in the head of the pancreas Needs to followed up in the outpatient Visit Charges Inpatient E&M: 03621 Subs Hosp L3
[2021-03-10] MEDS: Gabapentin 300 MG Capsule PO ×2 (11:29→21:06)
[2021-03-10] MEDS: LORazepam 2 MG/ML Syringe IV (11:42)
--- NOTE | 2021-03-10 16:18 | CASEMGMT ---
YOLIS Note: Referral Source: MD and ICU Drilling Superintendent Reason for Referral: Need psychiatric reevluation when medically cleared YOLIS met with . SHe advised patient is not medically ready for revaluation but maybe Friday. YOLIS called Kasey at [facility]. Advised that patient may be medically ready for revaluation tomorrow. She said that she will document that patient may be ready tomorrow but asked that this journalists and other writers call unit and advise them to call. YOLIS called ICU Charge Rosita and asked her to have staff call tomorrow regarding patient and if he needs reevaluation. Rosita said that she has [facility] phone number. No further needs at this time. Sabrina RUIZ
--- NOTE | 2021-03-10 21:03 | NURSING ---
Pt assisted up to BSC by staff x3, one staff needed to steady pt on BSC;pt able to have a med BM and voided additional 300ml after brief incontinence. Pt stood to clean lamberto area x2 max assist as he refused to hold his own weight. Pt placed back in bed, alarm on.
[2021-03-10] MEDS: traZODone 100 MG Tablet PO (21:06)
[2021-03-10] MEDS: QUEtiapine 100 MG Tablet 250 MG PO (21:06)
[2021-03-11] VITALS (16 sets, daily range): BP systolic 99–135; BP diastolic 62–95; PULSE 90–120; RESP 12–26; TEMP 36.3–36.9; O2SAT 96–99
[2021-03-11] MEDS: 0.9% Saline Lock 10 ML Syringe IV ×3 (00:16→16:23)
[2021-03-11] MEDS: Haloperidol Lactate 5 MG/ML Vial IV ×3 (00:17→16:22)
[2021-03-11 03:42] LABS: Absolute Lymphocyte Count 1.36 X10^3/uL (0.83-4.51); Basophil# 0.04 X10^3/uL; Basophil% 0.7 % (0-1); Eosinophil# 0.12 X10^3/uL; Eosinophils% 2.1 % (0-5); Hematocrit 39.9 % (40-54); Hemoglobin 13.3 g/dL (13.0-16.5); Lymphocyte # 1.36 X10^3/ul (0.83-4.51); Mean Corp Hgb Conc 33.3 g/dL (32-36); Mean Corpuscular Hgb 29.4 pg (27.0-32.0); Mean Corpuscular Volume 88.3 fL (80-94); Mean Platelet Vol. 9.9 fl (6.2-12.0); Monocyte# 1.13 X10^3/uL; Monocyte% 19.9 % (0-10); NRBC Flagged by Analyzer 0 % (0-5); Neutrophil % 52.9 % (47-70); Platelet Count 163 K/mm3 (150-450); RBC Distribution Width CV 14.5 % (11.6-14.6); RBC Distribution Width SD 46.7 fl (35.1-43.9); Red Blood Count 4.52 M/mm3 (4.6-6.2); White Blood Count 5.7 K/mm3 (4.4-11.0)
[2021-03-11 03:48] LABS: ALB/GLOB Ratio 0.7 RATIO (0.9-2.4); AST(SGOT) 62 U/L (15-37); Alanine Aminotransfer ALT/SGPT 52 U/L (16-61); Albumin, Serum 3.4 g/dL (3.2-5.0); Alkaline Phosphatase 145 U/L (45-117); Anion Gap 8 (5-15); BUN 12 mg/dL (7-18); BUN/Creat Ratio 13.8 RATIO (10-20); Chloride 103 mmol/L (98-107); Creatinine, Serum 0.87 mg/dL (0.70-1.30); EST Glomerular Filtration Rate 100 mL/min (>60); Est Glom Filt Rate - Afr Amer 121 mL/min (>60); Globulin 4.7 g/dL (2.2-4.2); Glucose 93 mg/dL (74-106); Potassium 3.7 mmol/L (3.5-5.1); Protein, Total 8.1 g/dL (6.4-8.2); Sodium Level 137 mmol/L (136-145)
--- NOTE | 2021-03-11 06:00 | EKG12_ITS ---
Test Reason : AM EKG Blood Pressure : / mmHG Vent. Rate : 102 BPM Atrial Rate : 102 BPM P-R Int : 142 ms QRS Dur : 078 ms QT Int : 362 ms P-R-T Axes : 028 037 007 degrees QTc Int : 471 ms Sinus tachycardia Otherwise normal ECG When compared with ECG of 09-MAR-2021 06:56, MANUAL COMPARISON REQUIRED, DATA IS UNCONFIRMED Confirmed by LAUREN MOON, NAYELI ([id number]), research editor ANTONIO BOLES ([id number]) on 03/13/2021 9:45:00 AM Referred By: JOSE Confirmed By:NAYELI AGUILAR MD
--- NOTE | 2021-03-11 07:16 | PCM.PN.INT ---
Subjective Subjective Patient has been off of Precedex for over 24 hours. Patient did require Haldol overnight. Patient stayed in the intensive care unit secondary to elevated CIWA scores. Patient continues to hallucinate and be confused. Patient has been able to void without straight cathing. Objective Data Objective Data Vital Signs: Vital Signs Temp Pulse Resp BP Pulse Ox 36.8 C 91 12 101/62 97 03/11/21 04:00 03/11/21 07:00 03/11/21 07:00 03/11/21 07:00 03/11/21 04:00 Oxygen Delivery Method Room Air Weight: 84.5 kg Body Mass Index (BMI) 26.4 Intake & Output: Intake and Output for Last 24 Hours 03/09/21 03/10/21 03/11/21 23:59 23:59 23:59 Intake Total 2302.84 / 2302.84 420 / 420 Output Total 1800 / 1800 1650 / 1650 350 / 350 Balance 502.84 / 502.84 -1230 / -1230 -350 / -350 Lab / Micro Data Result Diagrams: 03/11/21 03:35 03/11/21 03:05 Labs: Laboratory Results - last 24 hr 03/11/21 03/11/21 03/11/21 03:05 03:05 03:35 WBC 5.7 Corrected WBC CURRICULUM AND ASSESSMENT COORDINATOR RBC 4.52 L Hgb 13.3 Hct 39.9 L MCV 88.3 MCH 29.4 MCHC 33.3 RDW Std Deviation 46.7 H RDW Coeff of Eben 14.5 Plt Count 163 MPV 9.9 Immature Gran % (Auto) 0.400 Neut % (Auto) 52.9 Lymph % (Auto) 24.0 [place] % (Auto) 19.9 H Eos % (Auto) 2.1 Baso % (Auto) 0.7 Absolute Neuts (auto) 3.0 Absolute Lymphs (auto) 1.36 Total Counted CURRICULUM AND ASSESSMENT COORDINATOR Neutrophils % (Manual) CURRICULUM AND ASSESSMENT COORDINATOR Band Neutrophils % CURRICULUM AND ASSESSMENT COORDINATOR Lymphocytes % (Manual) CURRICULUM AND ASSESSMENT COORDINATOR Monocytes % (Manual) CURRICULUM AND ASSESSMENT COORDINATOR Eosinophils % (Manual) CURRICULUM AND ASSESSMENT COORDINATOR Basophils % (Manual) CURRICULUM AND ASSESSMENT COORDINATOR Metamyelocytes % CURRICULUM AND ASSESSMENT COORDINATOR Myelocytes % CURRICULUM AND ASSESSMENT COORDINATOR Promyelocytes % CURRICULUM AND ASSESSMENT COORDINATOR Blast Cells % CURRICULUM AND ASSESSMENT COORDINATOR Plasma Cell % (Manual) CURRICULUM AND ASSESSMENT COORDINATOR Other Cells % CURRICULUM AND ASSESSMENT COORDINATOR Nucleated RBC % 0 Nucleated RBCs/100 WBC CURRICULUM AND ASSESSMENT COORDINATOR Differential Comment CURRICULUM AND ASSESSMENT COORDINATOR Diff Path Review CURRICULUM AND ASSESSMENT COORDINATOR Hypersegmented Neuts CURRICULUM AND ASSESSMENT COORDINATOR Atypical Lymphocytes CURRICULUM AND ASSESSMENT COORDINATOR Reactive Lymphocytes CURRICULUM AND ASSESSMENT COORDINATOR Smudge Cells CURRICULUM AND ASSESSMENT COORDINATOR Toxic Granulation CURRICULUM AND ASSESSMENT COORDINATOR Toxic Vacuolation CURRICULUM AND ASSESSMENT COORDINATOR Dohle Bodies CURRICULUM AND ASSESSMENT COORDINATOR Migel Rods CURRICULUM AND ASSESSMENT COORDINATOR Platelet Estimate CURRICULUM AND ASSESSMENT COORDINATOR Plt Morphology Comment CURRICULUM AND ASSESSMENT COORDINATOR RBC Morphology CURRICULUM AND ASSESSMENT COORDINATOR Polychromasia CURRICULUM AND ASSESSMENT COORDINATOR Hypochromasia CURRICULUM AND ASSESSMENT COORDINATOR Poikilocytosis CURRICULUM AND ASSESSMENT COORDINATOR Basophilic Stippling CURRICULUM AND ASSESSMENT COORDINATOR Anisocytosis CURRICULUM AND ASSESSMENT COORDINATOR Microcytosis CURRICULUM AND ASSESSMENT COORDINATOR Macrocytosis CURRICULUM AND ASSESSMENT COORDINATOR Spherocytes CURRICULUM AND ASSESSMENT COORDINATOR Sickle Cells CURRICULUM AND ASSESSMENT COORDINATOR Target Cells CURRICULUM AND ASSESSMENT COORDINATOR Tear Drop Cells CURRICULUM AND ASSESSMENT COORDINATOR Ovalocytes CURRICULUM AND ASSESSMENT COORDINATOR Stomatocytes CURRICULUM AND ASSESSMENT COORDINATOR Porter-[place]obb Bodies CURRICULUM AND ASSESSMENT COORDINATOR [place] Cells CURRICULUM AND ASSESSMENT COORDINATOR Bite Cells CURRICULUM AND ASSESSMENT COORDINATOR Crenated Cell CURRICULUM AND ASSESSMENT COORDINATOR Acanthocytes (Spur) CURRICULUM AND ASSESSMENT COORDINATOR Rouleaux CURRICULUM AND ASSESSMENT COORDINATOR Schistocytes CURRICULUM AND ASSESSMENT COORDINATOR Sodium 137 Potassium 3.7 Chloride 103 Carbon Dioxide 26.0 Anion Gap 8 BUN 12 Creatinine 0.87 Estim Creat Clear Calc 113.00 Est GFR (MDRD) Af Amer 121 Est GFR (MDRD) Non-Af 100 BUN/Creatinine Ratio 13.8 Glucose 93 Calcium 9.0 Total Bilirubin 1.70 H AST 62 H ALT 52 Alkaline Phosphatase 145 H Total Protein 8.1 Albumin 3.4 Globulin 4.7 H Albumin/Globulin Ratio 0.7 L Physical Exam Const alert Constitutional Narrative: Oriented to self only General Appearance: cooperative, disheveled and appears older than stated age; Negative for ill appearing Orientation / Consciousness: oriented to person and confused HEENT normocephalic Eyes PERRL and EOMs intact bilaterally Neck supple, no JVD and no carotid bruits Resp normal respiratory effort and clear to auscultation bilaterally Cardio regular rate and no murmurs GI normal to inspection, nondistended, normoactive bowel sounds and soft to palpation Extremity normal capillary refill General Extremity: Negative for edema Skin no rashes or lesions noted Neuro CN's II-XII intact bilaterally Psych cooperative and affect normal Assessment & Plan Assessment/Plan (1) Alcohol withdrawal: (2) Pancreatic mass: (3) OCD (obsessive compulsive disorder): (4) Anxiety: (5) Thrombocytopenia concurrent with and due to alcoholism: (6) Acute urinary retention: PLAN: RECOMMENDATIONS: 1. Continue Seroquel and Haldol 2. Discontinue CIWA and Ativan therapy 3. Obtain electrolytes and replete if necessary on a daily basis 4. Will likely require psychiatric evaluation at some point 5. Will require outpatient work-up for pancreatic mass 6. Consider discontinuation of Vistaril given urinary retention 7. Hemodynamically stable on room air. Will sign off from a critical care perspective 8. Okay to leave the intensive care unit IMPRESSIONS: 1. Acute alcohol withdrawal/toxic encephalopathy Patient is 8 days from hospitalization and 7 days from last alcohol. Patient continues to have increased agitation, but this is likely more secondary to an underlying psychiatric condition in my opinion. Patient should be continued on Seroquel with Haldol as needed. We will need to follow QTC closely. Will discontinue Ativan and CIWA protocol as patient has had protracted exposure to alcohol. Ativan may be adding to delirium. 2. Pancreatic mass with fatty liver disease Unclear significance of mass in the pancreas. Patient unable to provide any additional history on if this is being followed already. Patient may require an ERCP versus EUS for evaluation. Anticipate stabilization of problem #1 prior to evaluation. Patient will be at risk for elevated blood sugars. Continue p.o. diet as tolerated 3. History of DTs/GERD/OCD Complicates care, management, recovery and prognosis. Patient appears to continue to be hallucinating despite lack of alcohol for over 5 days. Consider discontinuation of Ativan as this may be an exacerbating delirium 4. Acute urinary retention Clinical suspicion that this is secondary to medications. Low clinical suspicion for BPH given age. Patient is not showing any signs or symptoms of hematoma obstructing urine outflow. Renal function has remained stable. We will hold on any pelvic imaging at this time. Patient may benefit from discontinuation of Vistaril as this could exacerbate urinary retention. Visit Charges Inpatient E&M: 96620 Subs Hosp L2
--- NOTE | 2021-03-11 10:18 | PCM.PN.HOSP ---
Subjective Subjective Patient was seen and examined. He looks much better. Less impulsive. Still hallucinating. Objective Data Objective Data Vital Signs: Vital Signs Temp Pulse Resp BP Pulse Ox 98.3 F 95 26 H 115/84 H 98 03/11/21 04:00 03/11/21 08:00 03/11/21 08:00 03/11/21 08:00 03/11/21 08:00 Oxygen Delivery Method Room Air Weight: 84.5 kg Body Mass Index (BMI) 26.4 Intake & Output: Intake and Output for Last 24 Hours 03/09/21 03/10/21 03/11/21 23:59 23:59 23:59 Intake Total 2302.84 / 2302.84 420 / 420 Output Total 1800 / 1800 1650 / 1650 350 / 350 Balance 502.84 / 502.84 -1230 / -1230 -350 / -350 Lab / Micro Data Result Diagrams: 03/11/21 03:35 03/11/21 03:05 Labs: Laboratory Results - last 24 hr 03/11/21 03/11/21 03/11/21 03:05 03:05 03:35 WBC 5.7 Corrected WBC CHILLER OPERATOR RBC 4.52 L Hgb 13.3 Hct 39.9 L MCV 88.3 MCH 29.4 MCHC 33.3 RDW Std Deviation 46.7 H RDW Coeff of Eben 14.5 Plt Count 163 MPV 9.9 Immature Gran % (Auto) 0.400 Neut % (Auto) 52.9 Lymph % (Auto) 24.0 [place] % (Auto) 19.9 H Eos % (Auto) 2.1 Baso % (Auto) 0.7 Absolute Neuts (auto) 3.0 Absolute Lymphs (auto) 1.36 Total Counted CHILLER OPERATOR Neutrophils % (Manual) CHILLER OPERATOR Band Neutrophils % CHILLER OPERATOR Lymphocytes % (Manual) CHILLER OPERATOR Monocytes % (Manual) CHILLER OPERATOR Eosinophils % (Manual) CHILLER OPERATOR Basophils % (Manual) CHILLER OPERATOR Metamyelocytes % CHILLER OPERATOR Myelocytes % CHILLER OPERATOR Promyelocytes % CHILLER OPERATOR Blast Cells % CHILLER OPERATOR Plasma Cell % (Manual) CHILLER OPERATOR Other Cells % CHILLER OPERATOR Nucleated RBC % 0 Nucleated RBCs/100 WBC CHILLER OPERATOR Differential Comment CHILLER OPERATOR Diff Path Review CHILLER OPERATOR Hypersegmented Neuts CHILLER OPERATOR Atypical Lymphocytes CHILLER OPERATOR Reactive Lymphocytes CHILLER OPERATOR Smudge Cells CHILLER OPERATOR Toxic Granulation CHILLER OPERATOR Toxic Vacuolation CHILLER OPERATOR Dohle Bodies CHILLER OPERATOR Migel Rods CHILLER OPERATOR Platelet Estimate CHILLER OPERATOR Plt Morphology Comment CHILLER OPERATOR RBC Morphology CHILLER OPERATOR Polychromasia CHILLER OPERATOR Hypochromasia CHILLER OPERATOR Poikilocytosis CHILLER OPERATOR Basophilic Stippling CHILLER OPERATOR Anisocytosis CHILLER OPERATOR Microcytosis CHILLER OPERATOR Macrocytosis CHILLER OPERATOR Spherocytes CHILLER OPERATOR Sickle Cells CHILLER OPERATOR Target Cells CHILLER OPERATOR Tear Drop Cells CHILLER OPERATOR Ovalocytes CHILLER OPERATOR Stomatocytes CHILLER OPERATOR Porter-[place] Bodies CHILLER OPERATOR [place] Cells CHILLER OPERATOR Bite Cells CHILLER OPERATOR Crenated Cell CHILLER OPERATOR Acanthocytes (Spur) CHILLER OPERATOR Rouleaux CHILLER OPERATOR Schistocytes CHILLER OPERATOR Sodium 137 Potassium 3.7 Chloride 103 Carbon Dioxide 26.0 Anion Gap 8 BUN 12 Creatinine 0.87 Estim Creat Clear Calc 113.00 Est GFR (MDRD) Af Amer 121 Est GFR (MDRD) Non-Af 100 BUN/Creatinine Ratio 13.8 Glucose 93 Calcium 9.0 Total Bilirubin 1.70 H AST 62 H ALT 52 Alkaline Phosphatase 145 H Total Protein 8.1 Albumin 3.4 Globulin 4.7 H Albumin/Globulin Ratio 0.7 L Physical Exam Narrative General: Alert oriented to self,, Cooperative, No apparent distress, Well developed HEENT: Atraumatic Oral: Moist Mucosa Neck: Supple Lungs: Clear to auscultation Cardiovascular: HS I+II, regular, no murmurs Abdomen: Bowel Sounds Present, Soft, Non Tender Extremities: No edema Skin: No rashes, No breakdown Neurological: Grossly intact Psych/Mental Status: Appropriate Skin no wounds Assessment & Plan Assessment/Plan (1) Alcohol withdrawal: (2) Abnormal LFTs: (3) Fatty infiltration of liver: (4) Pancreatic mass: PLAN: Summary: 46-year-old male with past medical history of chronic alcohol use disorder who was admitted on 03/03/21 for detox. His alcohol level was 183 on admission. His hospital stay has been complicated by severe alcohol withdrawal requiring transfer to ICU on 03/05/21 for Precedex drip. His stay in ICU has been long, with patient having persistently elevated CIWA scores. He has been off Precedex since 03/09 1330HRS. He has also completed his phenobarbital taper. Patient remains confused and is actively hallucinating. He was started on Seroquel and maintained on as needed Haldol He had issues with urine retention that required straight urethral caths and is now resolved. 1. Acute alcohol withdrawal, severe, patient remains persistently confused, actively hallucinating - visual and auditory hallucinations. Severe underlying psychiatric disease is suspected here. Patient has technically completed alcohol withdrawal protocol and this presentation is not secondary to alcohol withdrawal. He is Off Precedex and phenobarb On increased dose of seroquel 250 mg twice daily, haldol prn Continue on folic acid, multivitamin, thiamine Patient is medically stable and needs to be evaluated by mobile crisis for inpatient psych admissions. 2. Elevated liver enzymes likely secondary to chronic alcohol use, improving Liver ultrasound shows fatty infiltration, needs to follow-up in the outpatient 4. Pancreatic mass Ultrasound of the liver showed 1.5 cm x 1.3 cm x 1.3 cm hypoechoic nodular density in the head of the pancreas Needs to followed up in the outpatient Patient will be transferred out of ICU today to the [facility] floor. Mobile crisis to evaluate patient today Visit Charges Inpatient E&M: 68412 Subs Hosp L2
[2021-03-11] MEDS: QUEtiapine 100 MG Tablet 250 MG PO ×2 (10:46→22:00)
[2021-03-11] MEDS: busPIRone 15 MG TABLET 7.5 MG PO ×2 (10:46→22:00)
[2021-03-11] MEDS: Pantoprazole Sodium 40 MG Tablet PO (10:47)
[2021-03-11] MEDS: Gabapentin 300 MG Capsule PO (14:21)
[2021-03-11] MEDS: traZODone 100 MG Tablet PO (22:00)
[2021-03-12] MEDS: Haloperidol Lactate 5 MG/ML Vial IV ×2 (01:28→13:35)
[2021-03-12 02:45] VITALS: BP 123/64; PULSE 97; RESP 16; TEMP 36.9; O2SAT 98
[2021-03-12 03:20] VITALS: PULSE 95
[2021-03-12] MEDS: Gabapentin 300 MG Capsule PO ×2 (04:05→13:35)
[2021-03-12 05:25] LABS: Absolute Neutrophil Count 2.9 X10^3/uL (2.0-7.7); Basophil# 0.07 X10^3/uL; Basophil% 1.2 % (0-1); Eosinophils% 3.3 % (0-5); Hematocrit 37.7 % (40-54); Hemoglobin 12.6 g/dL (13.0-16.5); Mean Corp Hgb Conc 33.4 g/dL (32-36); Mean Corpuscular Hgb 29.7 pg (27.0-32.0); Mean Corpuscular Volume 88.9 fL (80-94); Mean Platelet Vol. 10.1 fl (6.2-12.0); Monocyte# 1.21 X10^3/uL; Monocyte% 19.9 % (0-10); NRBC Flagged by Analyzer 0 % (0-5); Neutrophil # 2.88 X10^3/uL (2.7-7.7); Neutrophil % 47.3 % (47-70); Platelet Count 180 K/mm3 (150-450); RBC Distribution Width CV 14.6 % (11.6-14.6); RBC Distribution Width SD 46.6 fl (35.1-43.9); Red Blood Count 4.24 M/mm3 (4.6-6.2); White Blood Count 6.1 K/mm3 (4.4-11.0)
[2021-03-12 05:51] LABS: ALB/GLOB Ratio 0.7 RATIO (0.9-2.4); AST(SGOT) 56 U/L (15-37); Alanine Aminotransfer ALT/SGPT 48 U/L (16-61); Alkaline Phosphatase 141 U/L (45-117); Anion Gap 8 (5-15); BUN 16 mg/dL (7-18); BUN/Creat Ratio 16.7 RATIO (10-20); Calcium,Total 8.9 mg/dL (8.5-10.1); Chloride 103 mmol/L (98-107); Creatinine, Serum 0.96 mg/dL (0.70-1.30); EST Glomerular Filtration Rate 90 mL/min (>60); Est Glom Filt Rate - Afr Amer 109 mL/min (>60); Globulin 4.6 g/dL (2.2-4.2); Glucose 127 mg/dL (74-106); Magnesium 1.6 mg/dL (1.6-2.6); Potassium 3.5 mmol/L (3.5-5.1); Protein, Total 7.6 g/dL (6.4-8.2); Sodium Level 136 mmol/L (136-145)
[2021-03-12 08:15] VITALS: BP 91/50; PULSE 96; RESP 18; TEMP 37.4; O2SAT 95
[2021-03-12 08:20] VITALS: PULSE 100
--- NOTE | 2021-03-12 08:48 | PCM.PN.HOSP ---
Subjective Subjective Patient is a 46-year-old gentleman with history of chronic alcohol dependence admitted with acute alcohol withdrawal. Has had a complicated hospital stay with delirium tremens resulting in patient being transferred to the intensive care unit managed with Precedex. Patient was transferred back to the [facility] floor following stabilization of his medical condition. Patient continues to experience visual and auditory hallucination. Consult has been placed to the crisis team for possible evaluation for inpatient psych admission Objective Data Objective Data Vital Signs: Vital Signs Temp Pulse Resp BP Pulse Ox 99.3 F H 96 18 91/50 L 95 03/12/21 08:15 03/12/21 08:15 03/12/21 08:15 03/12/21 08:15 03/12/21 08:15 Oxygen Delivery Method Room Air Weight: 85.2 kg Body Mass Index (BMI) 26.4 Intake & Output: Intake and Output for Last 24 Hours 03/10/21 03/11/21 03/12/21 23:59 23:59 23:59 Intake Total 420 / 420 Output Total 1650 / 1650 350 / 350 Balance -1230 / -1230 -350 / -350 Lab / Micro Data Result Diagrams: 03/12/21 05:07 03/12/21 05:07 Labs: Laboratory Results - last 24 hr 03/12/21 03/12/21 05:07 05:07 WBC 6.1 RBC 4.24 L Hgb 12.6 L Hct 37.7 L MCV 88.9 MCH 29.7 MCHC 33.4 RDW Std Deviation 46.6 H RDW Coeff of Eben 14.6 Plt Count 180 MPV 10.1 Immature Gran % (Auto) 0.300 Neut % (Auto) 47.3 Lymph % (Auto) 28.0 [place] % (Auto) 19.9 H Eos % (Auto) 3.3 Baso % (Auto) 1.2 H Absolute Neuts (auto) 2.9 Absolute Lymphs (auto) 1.70 Nucleated RBC % 0 Sodium 136 Potassium 3.5 Chloride 103 Carbon Dioxide 25.0 Anion Gap 8 BUN 16 Creatinine 0.96 Estim Creat Clear Calc 102.40 Est GFR (MDRD) Af Amer 109 Est GFR (MDRD) Non-Af 90 BUN/Creatinine Ratio 16.7 Glucose 127 H Calcium 8.9 Magnesium 1.6 Total Bilirubin 1.40 H AST 56 H ALT 48 Alkaline Phosphatase 141 H Total Protein 7.6 Albumin 3.0 L Globulin 4.6 H Albumin/Globulin Ratio 0.7 L Physical Exam Narrative GENERAL: Tremulous HEENT: Atraumatic; EYES; Anicteric, Normal Conjunctiva NECK; supple, normal thyroid, RESPIRATORY: Diminished to auscultation CARDIOVASCULAR: Regular S1 S2, GI: soft, normoactive bowel sounds, : No Renal angle tenderness; EXTREMITIES: No edema, no clubbing, MUSCULOSKELETAL: no muscle waisting NEURO: Awake; no lateralizing signs. SKIN: No Rash PSYCH; appears delirious Assessment & Plan Assessment/Plan (1) Alcohol withdrawal: PLAN: Patient is a 46-year-old gentleman with history of chronic alcohol dependence admitted with acute alcohol withdrawal. Has had a complicated hospital stay with delirium tremens resulting in patient being transferred to the intensive care unit managed with Precedex. Patient was transferred back to the [facility] floor following stabilization of his medical condition. Patient continues to experience visual and auditory hallucination. Consult has been placed to the crisis team for possible evaluation for inpatient psych admission 1. Acute alcohol withdrawal which was complicated by delirium tremens ?Patient management protocol with phenobarb taper. Had to be transferred to the intensive care unit where patient was on Precedex which has since been weaned off 2. Auditory and visual hallucinations ?Patient underlying alcohol use contributing however the suspicion for possible Psychiatric issues. Consult has been placed to the crisis team for evaluation 3. Acute alcoholic hepatitis ?Liver ultrasound demonstrated fatty liver infiltration consistent with chronic alcohol use 4. Pancreatic mass ?Ultrasound demonstrated 1.5 cm x 1.3 cm x 1.3 cm hypoechoic nodular density in the head of the pancreas plan is for subsequent evaluation following stabilization of patient current medical issues Visit Charges Inpatient E&M: 09926 Subs Hosp L2
[2021-03-12 08:50] VITALS: PULSE 107
[2021-03-12] MEDS: Pantoprazole Sodium 40 MG Tablet PO (09:14)
[2021-03-12] MEDS: QUEtiapine 100 MG Tablet 250 MG PO (09:14)
[2021-03-12] MEDS: Polyethylene Glycol 3350 17 GM PACKET PO (09:14)
[2021-03-12] MEDS: busPIRone 15 MG TABLET 7.5 MG PO (09:14)
--- NOTE | 2021-03-12 09:40 | CASEMGMT ---
Social Work Note Pt is medically cleared for Crisis to evaluate pt. YOLIS placed a call to [facility] and spoke with Kasey in Crisis. Kasey states they were never called yesterday to evaluate pt. YOLIS informed Kasey that pt is medically cleared for Crisis evaluation. Kasey requests updated clinicals be faxed. YOLIS faxed updated clinicals to [facility]. Johanne Curiel GLAZIER HELPER, SPOT MACHINE OPERATOR
[2021-03-12] MEDS: 0.9% Saline Lock 10 ML Syringe IV (13:35)
[2021-03-12 14:02] VITALS: BP 102/59; PULSE 98; RESP 16; TEMP 36.9; O2SAT 95
--- NOTE | 2021-03-12 15:55 | PCM.DC ---
Discharge Instructions Diet Discharge Diet: No restrictions Activity Discharge Activity: Return to Normal Activity Dressing / Incision Call your doctor if you observe: Fever of 101 or Higher, Shortness of breath, Fainting spells and Chest pain Follow Up Care Test Results: Test results from this visit will be discussed in further detail at your follow-up appointment, if applicable. Discharge Plan Admission Admit Date/Time: 03/03/21 18:07 Primary Reason for Your Visit: alcohol withdrawal Attending Provider: Rosendo Floyd Primary Care Provider: Zachary Mcclendon Consulting Providers: Roge Scherer Discharge Orders/Prescriptions Prescriptions: Continued pantoprazole 40 mg Tablet,Delayed Release (Dr/Ec) 40 mg PO DAILY RF: 0 buspirone 7.5 mg Tablet 7.5 mg PO BID RF: 0 vitamin B complex Capsule 1 cap PO DAILY RF: 0 Referrals / Follow Up: Zachary Mcclendon MD [Primary Care Provider] - Disposition Disposition (needs filled in before D/C Order can be placed): Psychiatric Hospital [facility] Unit
--- NOTE | 2021-03-12 16:00 | DS.PCM_ITS ---
Providers Date of Admission: 03/03/21 Primary Care Physician: Dr. Zachary Mcclendon MD Consultations 03/05/21 14:00 Consult: Assistant Brand Manager / Pulmonary Medicine Routine Consulting Provider: Roge Scherer Reason for Consult: Severe alcohol withdrawal EMERGENT Consult: No MD Notified: Yes Date Notified:: 03/05/21 Time Notified: 13:40 Method of Notification: Text Reason For Visit: ACUTE ALCOHOL WITHDRAWAL Diagnosis Discharge Diagnosis (1) Alcohol withdrawal: Status: Acute Code(s): F10.239 - Alcohol dependence with withdrawal, unspecified Medications at Discharge Home Medications buspirone 7.5 mg PO BID 03/03/21 pantoprazole 40 mg PO DAILY 03/03/21 vitamin B complex 1 cap PO DAILY 03/03/21 Hospital Course Summary of Care Provided Minutes Spent on Discharge: 45 Hospital Course: ?Patient is a 46-year-old gentleman with history of chronic alcohol dependence admitted with acute alcohol withdrawal.? Has had a complicated hospital stay with delirium tremens resulting in patient being transferred to the intensive care unit managed with Precedex.? Patient was transferred back to the [facility] floor following stabilization of his medical condition.? Patient continues to experience visual and auditory hallucination.? Consult has been placed to the crisis team for possible evaluation for inpatient psych admission 1.? Acute alcohol withdrawal which was complicated by delirium tremens ?Patient management protocol with phenobarb taper.? Had to be transferred to the intensive care unit where patient was on Precedex which has since been weaned off 2.? Auditory and visual hallucinations ?Patient underlying alcohol use contributing however the suspicion for possible Psychiatric issues.? Consult has been placed to the crisis team for evaluation. Crisis center did arrange for patient to be transferred to an inpatient psychiatric facility for subsequent management 3.? Acute alcoholic hepatitis ?Liver ultrasound demonstrated fatty liver infiltration consistent with chronic alcohol use 4.? Pancreatic mass ?Ultrasound demonstrated? 1.5 cm x 1.3 cm x 1.3 cm hypoechoic nodular density in the head of the pancreas plan is for subsequent evaluation following stabilization of patient current medical issues Physical Exam Narrative GENERAL: cooperative HEENT: Atraumatic; EYES; Anicteric, Normal Conjunctiva NECK; supple, normal thyroid, RESPIRATORY: Diminished to auscultation SKIN: No Rash PSYCH; Flat affect ABG / Lab / Microbiology Data Result Diagrams: 03/12/21 05:07 03/12/21 05:07 Laboratory: Laboratory Results - last 24 hr 03/12/21 03/12/21 05:07 05:07 WBC 6.1 RBC 4.24 L Hgb 12.6 L Hct 37.7 L MCV 88.9 MCH 29.7 MCHC 33.4 RDW Std Deviation 46.6 H RDW Coeff of Eben 14.6 Plt Count 180 MPV 10.1 Immature Gran % (Auto) 0.300 Neut % (Auto) 47.3 Lymph % (Auto) 28.0 Gregory % (Auto) 19.9 H Eos % (Auto) 3.3 Baso % (Auto) 1.2 H Absolute Neuts (auto) 2.9 Absolute Lymphs (auto) 1.70 Nucleated RBC % 0 Sodium 136 Potassium 3.5 Chloride 103 Carbon Dioxide 25.0 Anion Gap 8 BUN 16 Creatinine 0.96 Estim Creat Clear Calc 102.40 Est GFR (MDRD) Af Amer 109 Est GFR (MDRD) Non-Af 90 BUN/Creatinine Ratio 16.7 Glucose 127 H Calcium 8.9 Magnesium 1.6 Total Bilirubin 1.40 H AST 56 H ALT 48 Alkaline Phosphatase 141 H Total Protein 7.6 Albumin 3.0 L Globulin 4.6 H Albumin/Globulin Ratio 0.7 L D/C Instructions Discharge Diet: No restrictions Discharge Activity: Return to Normal Activity Call your doctor if you observe: Fever of 101 or Higher, Shortness of breath, Fainting spells and Chest pain Meaningful Use Info Meaningful Use Diagnoses (Choose all that apply): None applicable Discharge Plan Admission Admit Date/Time: 03/03/21 18:07 Primary Reason for Your Visit: alcohol withdrawal Attending Provider: Rosendo Floyd Primary Care Provider: Zachary Mcclendon Consulting Providers: Roge Scherer Discharge Orders/Prescriptions Prescriptions: Continued pantoprazole 40 mg Tablet,Delayed Release (Dr/Ec) 40 mg PO DAILY RF: 0 buspirone 7.5 mg Tablet 7.5 mg PO BID RF: 0 vitamin B complex Capsule 1 cap PO DAILY RF: 0 Referrals / Follow Up: Zachary Mcclendon MD [Primary Care Provider] - Within 1 Month Disposition Disposition (needs filled in before D/C Order can be placed): Psychiatric Hospital or Unit Visit Charges Inpatient E&M: [id number] Disch Hosp
== END 2021-03-12 18:36 | DRG 775 ==
LOC: ED 16:13 → MS3 18:30 → ICU 03-05 14:02 → MS3 03-12 07:19 → ICU 03-12 12:02 → MS3 03-12 12:03
PROVIDERS: Internal Medicine; Internal Medicine Critical Care Medicine; Admitting Provider Student in an Organized Health Care Education/Training Program; Emergency Provider Student in an Organized Health Care Education/Training Program; PCP Internal Medicine; Visit Provider Internal Medicine
DX: F10.231 Alcohol dependence with withdrawal delirium (principal); F32.9 Major depressive disorder, single episode, unspecified; K21.9 Gastro-esophageal reflux disease without esophagitis; Y90.6 Blood alcohol level of 120-199 mg/100 ml; F41.9 Anxiety disorder, unspecified; I85.10 Secondary esophageal varices without bleeding; G47.30 Sleep apnea, unspecified; I10 Essential (primary) hypertension; K59.00 Constipation, unspecified; K70.30 Alcoholic cirrhosis of liver without ascites; F42.9 Obsessive-compulsive disorder, unspecified; D69.6 Thrombocytopenia, unspecified; G92 Toxic encephalopathy; R33.9 Retention of urine, unspecified; K86.9 Disease of pancreas, unspecified; Z87.820 Personal history of traumatic brain injury; Z79.899 Other long term (current) drug therapy; K70.10 Alcoholic hepatitis without ascites
CPT/HCPCS: 36415; 76705; 80048; 80053; 80307; 82077; 82247; 82248; 83735; 84100; 85025; 93005; 97110; 97163; 97165; 97535; 99284; J7030; A4216; J2405